=== PATIENT | female | born 1940 | race Caucasian/White ===

== ENCOUNTER → 2016-06-14 | Outpatient (CLI) | payer BC ==
[~2016-06-14] MED LIST: ADAL20KI; APIX1TAB PO; APIX1TAB3 PO; CALC-388 PO; CALCTAB20 PO; CEPH500C2 PO; CLON0.5T3 PO; CYM/30 PO; DULO60CA44 PO; FAMO20TA11 PO; FOLI1TAB7 PO; FRRG PO; HYDR-5688 PO; HYDR2TAB48 PO; LDDP5 EXT; METH2.5T PO; METO25TA3 PO; METO50TA7 PO; MORP15TA19 PO; MRPSR15 PO; OMEP40CA41 PO; OXGN; PRAM0.129 PO; PRAV20TA PO; PRD/1 PO; PRED-301 PO; PRLSR20 PO; QUET1TAB32 PO
--- NOTE | 2016-06-14 17:42 | DIAGNOSTIC IMAGING REPORT ---
MRI LUMBAR SPINE W/O CONTRAST CLINICAL HISTORY: Low back pain HISTORY OF COMPRESSION FRACTURES TECHNIQUE: Sagittal and axial T1, T2 and STIR images were obtained. COMPARISON STUDY: Conventional radiographic study dated 05/01/2016, whole body bone scan dated 05/23/2016 OBSERVATIONS: There is a T11 focal fatty rest/hemangioma. There are old compression fractures of the L1-L5 vertebral bodies. There are no areas of marrow edema to indicate an acute compression fracture. L1-2: There is disc desiccation. There is a central disc protrusion. There is moderate spinal stenosis. There is bilateral foraminal narrowing. L2-3: There is a circumferential disc bulge. There is moderate spinal stenosis. There is facet joint arthropathy. There is bilateral foraminal narrowing L3-4: There is a circumferential disc bulge. There is facet joint arthropathy. There is no significant spinal stenosis. There is mild bilateral foraminal narrowing. L4-5: There is a circumferential disc bulge. There is facet joint arthropathy. There is moderate spinal stenosis. There is bilateral foraminal narrowing. L5-S1: There is a circumferential disc bulge present. There is facet joint arthropathy. There is no significant spinal stenosis. There is bilateral foraminal narrowing. The conus medullaris and cauda equina appear normal. IMPRESSION: 1. Old L1-L5 vertebral body compression fractures 2. Multilevel spondylitic changes with moderate spinal stenosis the L1-2, L2-3, and L4-5 levels. 3. Multilevel severe foraminal stenosis. Electronically signed by: Sam Lopes M.D. 06/14/2016 5:40 PM Dictated Date/Time: 06/14/2016 5:35 PM
== END | disposition home or self-care (01) ==
LOC: C.MRI 16:02
PROVIDERS: ATTEND Family Medicine
DX: M54.17 Radiculopathy, lumbosacral region (principal); M48.06 Spinal stenosis, lumbar region

== ENCOUNTER → 2016-07-04 | Outpatient (CLI) | payer BC | END | disposition home or self-care (01) | LOC: C.MAMM 13:37 | PROVIDERS: ATTEND Internal Medicine Rheumatology | DX: M81.0 Age-related osteoporosis without current pathological fracture (principal) ==

== ENCOUNTER → 2016-07-24 | Outpatient (CLI) | payer BC ==
--- NOTE | 2016-07-24 15:36 | DIAGNOSTIC IMAGING REPORT ---
LEFT HEEL MIN 2 VIEWS CLINICAL HISTORY: Left heel pain COMPARISON: Left foot dated 01/19/2016 DISCUSSION: There is flattening of the talar dome. There are advanced arthritic changes present within the tibiotalar joint. No acute fractures are visualized. No destructive lesions are evident. There are vascular calcifications. IMPRESSION: Advanced degenerative changes within the tibiotalar joint with flattening of the talar dome, unchanged from the preceding study. No acute fractures. No conventional radiographic evidence of osteomyelitis. Electronically signed by: Sam Lopes M.D. 07/24/2016 3:34 PM Dictated Date/Time: 07/24/2016 3:33 PM
== END | disposition home or self-care (01) ==
LOC: C.RAD 15:12
PROVIDERS: ATTEND Emergency Medicine
DX: M79.672 Pain in left foot (principal)

== ENCOUNTER → 2016-08-13 | Outpatient (CLI) | payer BC ==
[~2016-08-13] MED LIST changes: -APIX1TAB PO; -FAMO20TA11 PO; -HYDR-5688 PO
[2016-08-13 14:39] LABS: BASO % 0.2 %; BASO ABS # 0.01 K/uL (0-0.2); COMPLETE YES; EOS % 5.1 %; HEMATOCRIT 38.9 % (37-47); IG% 0.2 %; LYMPH % 27.3 %; LYMPH ABS # 1.35 K/uL (1.2-3.4); MEAN CELL VOLUME 99.2 fL (80-100); MEAN CORPUSCULAR HEMOGLOBIN 32.1 pg (25-34); MEAN CORPUSCULAR HGB CONC 32.4 g/dl (32-36); MEAN PLATELET VOLUME 10.1 fL (7.4-10.4); MONO % 12.8 %; NEUT % 54.4 %; PLATELET COUNT 121 K/uL (130-400); RED BLOOD COUNT 3.92 M/uL (4.2-5.4); WHITE BLOOD COUNT 4.94 K/uL (4.8-10.8)
[2016-08-13 15:08] LABS: ALT/SGPT 24 U/L (12-78); AST/SGOT 19 U/L (15-37); CALCIUM 8.8 mg/dl (8.5-10.1); CREATININE 0.77 mg/dl (0.60-1.20)
[2016-08-13 15:11] LABS: ALKALINE PHOSPHATASE 56 U/L (45-117)
== END | disposition home or self-care (01) ==
LOC: C.LAB1850 13:49
PROVIDERS: ATTEND Internal Medicine Rheumatology
DX: M06.9 Rheumatoid arthritis, unspecified (principal); M81.0 Age-related osteoporosis without current pathological fracture; Z92.29 Personal history of other drug therapy; Z79.52 Long term (current) use of systemic steroids; M54.5 Low back pain; E55.9 Vitamin D deficiency, unspecified; Z79.899 Other long term (current) drug therapy

== ENCOUNTER 2016-09-05 16:12 | Observation (INO) | payer BC ==
[~2016-09-05] VITALS: Ht 157.5 cm; Wt 61.0 kg
[~2016-09-05 16:12] MED LIST changes: -CALC-388 PO; -CEPH500C2 PO; -CYM/30 PO; -HYDR2TAB48 PO; -LDDP5 EXT; -MRPSR15 PO; -OMEP40CA41 PO
[2016-09-05] MEDS ORDERED: HYDROmorphone INJ 2 MG/ML SYR/VIAL IM STA (16:28)
[2016-09-05] MEDS ORDERED: ONDANSETRON 4MG OD TAB PO ONE (16:30)
--- NOTE | 2016-09-05 17:26 | DIAGNOSTIC IMAGING REPORT ---
CT LUMBAR SPINE WITHOUT CT DOSE: 543.03 mGy.cm CLINICAL HISTORY: Severe low back pain. TECHNIQUE: Axial images of the lumbar spine were obtained without IV contrast. Sagittal and coronal reconstructions were viewed. COMPARISON STUDY: Lumbar spine radiograph May 21, 2016 and MRI of the lumbar spine June 14, 2016. FINDINGS: For purposes of numbering on this exam, the L5-S1 disc space is assigned to axial image 226 of 323. When utilizing this numbering scheme, there is a disc space at the S1-S2 level. There is moderate dextroscoliosis of the lumbar spine. There is slight interval listhesis of L4 and L5. There are old compression deformities of L1, L2, L3, L4 and L5 which are similar to MRI of June 14, 2016. No acute fractures identified on this exam. No suspicious osseous lesion is present. The central canal and neural foramen are suboptimally assessed by CT. Multilevel disc bulges are similar to prior MRI and most pronounced at the L4-L5 and L1-L2 levels. The prevertebral soft tissues are unremarkable. IMPRESSION: 1. No acute lumbar spine fracture or subluxation. 2. Old compression fractures of L1, L2, L3, L4 and L5 which are similar to exam of June 14, 2016. 3. Moderate multilevel degenerative disc disease and facet arthrosis. 4. Moderate dextroscoliosis of the lumbar spine. Electronically signed by: Flavio Minaya M.D. 09/05/2016 5:24 PM Dictated Date/Time: 09/05/2016 5:12 PM
[2016-09-05] MEDS ORDERED: CEPH500C2 PO (17:37)
[2016-09-05] MEDS ORDERED: OMEP40CA41 PO (17:37)
[2016-09-05] MEDS ORDERED: CALC-388 PO (17:37)
[2016-09-05] MEDS ORDERED: CYM/30 PO (17:37)
[2016-09-05] MEDS ORDERED: HYDROmorphone INJ 0.5 MG/0.5 ML SYR IV STA (17:43)
[2016-09-05] MEDS ORDERED: DEXAMETHASONE SOD INJ 10 MG/ML VIAL IV ONE (17:45)
[2016-09-05 18:26] LABS: BASO % 0.2 %; BASO ABS # 0.01 K/uL (0-0.2); COMPLETE YES; HEMATOCRIT 39.4 % (37-47); IG% 0.2 %; LYMPH % 11.9 %; LYMPH ABS # 0.72 K/uL (1.2-3.4); MEAN CELL VOLUME 98.5 fL (80-100); MEAN CORPUSCULAR HGB CONC 32.5 g/dl (32-36); MEAN PLATELET VOLUME 9.6 fL (7.4-10.4); MONO % 6.8 %; NEUT % 79.9 %; PLATELET COUNT 129 K/uL (130-400); WHITE BLOOD COUNT 6.05 K/uL (4.8-10.8)
--- NOTE | 2016-09-05 18:44 | EMERGENCY ROOM VISIT NOTE ---
ED Visit Note First contact with patient: 16:19 I have personally evaluated this patient examined her and reviewed the pertinent labs and data. I have discussed the case with Yenny Jarquin, the physician accounts receivable assistant and agree with the plan. Please refer to the PA note. This patient is having severe right leg pain. It is worse in the anterior thigh and worse with movement she has no neurologic deficit she has good distal pulses. Her right foot was operated on yesterday and she has a splint on that on my exam. She also severe RA and is on chronic pain medication. She has received IV pain medications and I do think needs to be admitted for IV pain control. She certainly a fall risk given her RA and the fact that her other leg has been operated on in as a splint on.
[2016-09-05 18:47] LABS: BUN/CREATININE RATIO 13.9 (10-20); CALCIUM 8.9 mg/dl (8.5-10.1); CREATININE 0.74 mg/dl (0.60-1.20); POTASSIUM 4.1 mmol/L (3.5-5.1)
--- NOTE | 2016-09-05 19:40 | History and Physical ---
History & Physical Date & Time of Service: Sep 05, 2016 at 19:39 Chief Complaint: Severe Lt Leg Pain- S/P Surgery-Physician Referr Primary Care Physician: Cuong Chavez M.D. History of Present Illness Source: patient 76 y/o F w/Hx severe RA, multiple orthopedic surgeries, chronic LBP with multiple chronic compression fractures. Pt has had progressive acute on chronic LBP for one week. She had 2 LLE toes amputated due to RA-related deformities 09/04. Positioning during the procedure may have further exacerbated her LBP and she is currently limited in her mobility and not responding to her home pain medications. She denies fevers, rigors, CP, SOB or dysuria. The pt was treated with a corticosteroid injection 2 months prior. Past Medical/Surgical History 1) RA - treating with Humira and low-dose prednisone at present 2) AF 3) Bio AVR 4) Chronic L heal ulcer Surgical 1) B/L TKR 2) R shoulder replacement 3) R elbow surgery 4) Hysterectomy 5) Amputations of 2 LLE toes Social History Smoking Status: Never Smoker Drug Use: none Marital Status: Occupational Status: retired Immunizations History of Influenza Vaccine: Yes Influenza Vaccine Date: Feb 23, 2013 History of Tetanus Vaccine?: Unknown Tetanus Immunization Date: Mar 23, 2009 History of Pneumococcal: Yes Pneumococcal Date: Feb 21, 2011 History of Hepatitis B Vaccine: Unknown Multi-Drug Resistant Organisms History of MDRO: No Allergies Coded Allergies: Aspirin (Verified Allergy, Unknown, Hives, 05/24/15) Celecoxib (Verified Allergy, Unknown, 05/24/15) Sulfa Antibiotics (Verified Allergy, Unknown, Unknown rxn, 05/24/15) Oxycodone (Verified Adverse Reaction, Mild, "GETS NERVOUS", 05/24/15) Home Medications Scheduled Apixaban (Eliquis), 5 MG PO BID Calcium Carbonate-Vitamin D (Calcium + D3 600-200 mg-Unit), 1 TAB PO DAILY Cephalexin Monohydrate (Keflex), 500 MG PO DAILY Clonazepam (Klonopin), 0.5 MG PO HS Duloxetine Hcl (Cymbalta), 30 MG PO DAILY Folic Acid (Folvite), 1 TAB PO DAILY Methotrexate (Methotrexate), 10 MG PO WK Metoprolol Succ (Toprol Xl) (Toprol-Xl), 25 MG PO QPM Metoprolol Succ (Toprol Xl) (Toprol-Xl), 50 MG PO QAM Morphine Cont Rel (Ms Contin), 15 MG PO TID Omeprazole (Prilosec), 40 MG PO DAILY Oxygen (Oxygen), 2 LITERS NA HS Pramipexole Dihydrochloride (Mirapex), 0.125 MG PO HS Pravastatin (Pravachol ), 10 MG PO DAILY Prednisone (Prednisone), 5 MG PO QD@08 Quetiapine Fumarate (Seroquel), 50 MG PO HS Miscellaneous Medications Adalimumab (Humira) Review of Systems Constitutional: No chills, No fever, No sweats Eyes: No eye pain, No worsening of vision ENT: No hearing loss, No nasal symptoms, No unusual epistaxis Respiratory: No cough, No sputum, No wheezing Cardiovascular: No PND, No chest pain, No orthopnea Abdomen: No nausea, No pain, No vomiting Musculoskeletal: + joint pain, + muscle pain, + problem reported (severe LBP) Genitourinary - Female: No dysuria, No hematuria, No urinary frequency, No urinary incontinence, No urinary retention, No urinary urgency Neurologic: No memory loss, No paralysis, No weakness Psychiatric: No anhedonism, No depression symptoms Endocrine: + fatigue Hematologic / Lymphatic: No abnormal bleeding/bruising Integumentary: No rash Allergic / Immunologic: No environmental allergies Physical Exam Vital Signs Date Time Temp Pulse Resp B/P Pulse Ox O2 Delivery O2 Flow Rate FiO2 09/05/16 18:21 69 18 167/87 93 Room Air 09/05/16 16:17 36.4 70 18 165/76 94 Room Air General Appearance: WD/WN, no apparent distress Head: normocephalic, atraumatic Eyes: normal inspection, PERRL, EOMI ENT: normal ENT inspection, hearing grossly normal, TMs normal, pharynx normal Neck: supple, no adenopathy, thyroid normal, no JVD Respiratory/Chest: chest non-tender, lungs clear, normal breath sounds, no respiratory distress, no accessory muscle use Cardiovascular: regular rate, rhythm, no edema, no gallop, no JVD, no murmur, normal peripheral pulses Abdomen/GI: normal bowel sounds, non tender, soft Back: + decreased range of motion, + paravertebral tenderness Extremities/Musculoskelatal: normal inspection, no calf tenderness, normal capillary refill, no pedal edema, normal range of motion, + pertinent finding ( Amputation of 2nd,3rd L toes - no evidence of post-op infection) Neurologic/Psych: cash management specialist II-XII nml as tested, no motor/sensory deficits, alert, normal mood/affect, normal reflexes, oriented x 3 Skin: normal color, warm/dry, no rash Diagnostics Laboratory Results Results Past 24 Hours Test 09/05/16 18:09 Range/Units White Blood Count 6.05 4.8-10.8 K/uL Red Blood Count 4.00 4.2-5.4 M/uL Hemoglobin 12.8 12.0-16.0 g/dL Hematocrit 39.4 37-47 % Mean Corpuscular Volume 98.5 80-100 fL Mean Corpuscular Hemoglobin 32.0 25-34 pg Mean Corpuscular Hemoglobin Concent 32.5 32-36 g/dl Platelet Count 129 130-400 K/uL Mean Platelet Volume 9.6 7.4-10.4 fL Neutrophils (%) (Auto) 79.9 % Lymphocytes (%) (Auto) 11.9 % Monocytes (%) (Auto) 6.8 % Eosinophils (%) (Auto) 1.0 % Basophils (%) (Auto) 0.2 % Neutrophils # (Auto) 4.84 1.4-6.5 K/uL Lymphocytes # (Auto) 0.72 1.2-3.4 K/uL Monocytes # (Auto) 0.41 0.11-0.59 K/uL Eosinophils # (Auto) 0.06 0-0.5 K/uL Basophils # (Auto) 0.01 0-0.2 K/uL RDW Standard Deviation 50.3 36.4-46.3 fL RDW Coefficient of Variation 13.9 11.5-14.5 % Immature Granulocyte % (Auto) 0.2 % Immature Granulocyte # (Auto) 0.01 0.00-0.02 K/uL Sodium Level 142 136-145 mmol/L Potassium Level 4.1 3.5-5.1 mmol/L Chloride Level 102 98-107 mmol/L Carbon Dioxide Level 33 21-32 mmol/L Anion Gap 7.0 3-11 mmol/L Blood Urea Nitrogen 10 7-18 mg/dl Creatinine 0.74 0.60-1.20 mg/dl Est Creatinine Clear Calc Drug Dose 54.7 ml/min Estimated GFR () 90.6 Estimated GFR (Non- 78.1 BUN/Creatinine Ratio 13.9 10-20 Random Glucose 139 70-99 mg/dl Calcium Level 8.9 8.5-10.1 mg/dl Diagnostic Radiology 1. No acute lumbar spine fracture or subluxation. 2. Old compression fractures of L1, L2, L3, L4 and L5 which are similar to exam of June 14, 2016. 3. Moderate multilevel degenerative disc disease and facet arthrosis. 4. Moderate dextroscoliosis of the lumbar spine. Impression Assessment and Plan 76 y/o F w/Hx severe RA, multiple orthopedic surgeries, chronic LBP with multiple chronic compression fractures. Pt has had progressive acute on chronic LBP for one week. She had 2 LLE toes amputated due to RA-related deformities 09/04. Positioning during the procedure may have further exacerbated her LBP and she is currently limited in her mobility and not responding to her home pain medications. She denies fevers, rigors, CP, SOB or dysuria. 1) Back pain - will treat with narcotics. PT/OT requested. Orhthopedics consulted. No acute changes seen on imaging. 2) Cont Prednisone. F/U as outpt for Humira, MTX use post-op. 3) AF - Cont Apixaban 4) Recent toe amputation - not c/o surgical site pain - taking PO Keflex which we will continue. Full code - Apixaban prophylaxis Total time for this admit including review of labs, meds, imaging - recent records - discussion with ER attending and pt 35 min Level of Care Med/Surg Resuscitation Status FULL RESUSCITATION VTE Prophylaxis Given or contraindicated: Other Anticoagulation
[2016-09-05] MEDS ORDERED: HYDROmorphone INJ 1 MG/ML SYR IV PRN (19:45)
--- NOTE | 2016-09-05 19:49 | EMERGENCY ROOM VISIT NOTE ---
History First contact with patient: 16:19 Chief Complaint: LEG PAIN,LEG INJURY Stated Complaint: SEVERE LT LEG PAIN- S/P SURGERY-PHYSICIAN REFERR History of Present Illness The patient is a 76 year old female who presents to the Emergency Room with complaints of right lower back pain that radiates down her leg for the past week described as aching, ranging in severity 8 out of 10. Nothing makes it better or worse. She sees Dr. Ricketts from orthopedics spine. She had steroid injections before. She had an MRI of the back earlier this year. Patient denies fall, chest pain, dyspnea, numbness, tingling, fever, chills, IV drug abuse, loss of bowel or bladder control, saddle anesthesia, abdominal pain. She is tolerating by mouth fluids and food. She tried her morphine at home with no improvement. Patient had foot surgery the other day on her left foot. Patient states she has severe rheumatoid arthritis. Review of Systems See HPI for pertinent positives & negatives. A total of 10 systems reviewed and were otherwise negative. Past Medical/Surgical History Medical Problems: (1) Atrial fibrillation (2) Congestive heart failure (3) Hypertension (4) Osteoporosis, unspecified Social History Smoking Status: Never Smoker Drug Use: none Marital Status: Housing Status: lives with significant other Occupation Status: retired Current/Historical Medications Scheduled Apixaban (Eliquis), 5 MG PO BID Calcium Carbonate-Vitamin D (Calcium + D3 600-200 mg-Unit), 1 TAB PO DAILY Cephalexin Monohydrate (Keflex), 500 MG PO DAILY Clonazepam (Klonopin), 0.5 MG PO HS Duloxetine Hcl (Cymbalta), 30 MG PO DAILY Folic Acid (Folvite), 1 TAB PO DAILY Methotrexate (Methotrexate), 10 MG PO WK Metoprolol Succ (Toprol Xl) (Toprol-Xl), 25 MG PO QPM Metoprolol Succ (Toprol Xl) (Toprol-Xl), 50 MG PO QAM Morphine Cont Rel (Ms Contin), 15 MG PO TID Omeprazole (Prilosec), 40 MG PO DAILY Oxygen (Oxygen), 2 LITERS NA HS Pramipexole Dihydrochloride (Mirapex), 0.125 MG PO HS Pravastatin (Pravachol ), 10 MG PO DAILY Prednisone (Prednisone), 5 MG PO QD@08 Quetiapine Fumarate (Seroquel), 50 MG PO HS Miscellaneous Medications Adalimumab (Humira) Allergies Coded Allergies: Aspirin (Verified Allergy, Unknown, Hives, 05/24/15) Celecoxib (Verified Allergy, Unknown, 05/24/15) Sulfa Antibiotics (Verified Allergy, Unknown, Unknown rxn, 05/24/15) Oxycodone (Verified Adverse Reaction, Mild, "GETS NERVOUS", 05/24/15) Physical Exam Vital Signs Date Time Temp Pulse Resp B/P Pulse Ox O2 Delivery O2 Flow Rate FiO2 09/05/16 19:42 66 18 147/87 93 Room Air 09/05/16 18:21 69 18 167/87 93 Room Air 09/05/16 16:17 36.4 70 18 165/76 94 Room Air Physical Exam VITALS: Vitals are noted on the nurse's note and reviewed by myself. Vital signs stable. GENERAL: Pleasant elderly female, in no acute distress, nondiaphoretic, well- developed well-nourished. SKIN: Capillary reflex less than 2 seconds. HEENT: Normocephalic. PERRLA. EOMI. Nares patent. Mucous membranes moist. Neck is supple without nuchal rigidity. HEART: Regular rate and rhythm LUNGS: Clear to auscultation bilaterally without wheezes, rales or rhonchi. No retractions or accessory muscle use. ABDOMEN: Positive bowel sounds x 4. Normal tympanic percussion. Soft, nontender, without masses or organomegaly. Ferreira sign negative. No guarding or rebound tenderness. MUSCULOSKELETAL: No gross musculoskeletal defects. No pedal edema. No calf tenderness. No thoracic tenderness on exam, minimal L4-L5 tenderness on exam, negative straight leg raise. Patient can walk on toes and heels. +2 patellar reflexes equal present bilaterally NEURO: Patient was alert and oriented to person place and time. Normal sensation to light and sharp touch. No focal neurological deficits. Medical Decision & Procedures Laboratory Results 09/05/16 18:09 Red Blood Count 4.00, Mean Corpuscular Volume 98.5, Mean Corpuscular Hemoglobin 32.0, Mean Corpuscular Hemoglobin Concent 32.5, Mean Platelet Volume 9.6, Neutrophils (%) (Auto) 79.9, Lymphocytes (%) (Auto) 11.9, Monocytes (%) (Auto) 6.8, Eosinophils (%) (Auto) 1.0, Basophils (%) (Auto) 0.2, Neutrophils # (Auto) 4.84, Lymphocytes # (Auto) 0.72, Monocytes # (Auto) 0.41, Eosinophils # (Auto) 0.06, Basophils # (Auto) 0.01 09/05/16 18:09 Test 09/05/16 18:09 White Blood Count 6.05 K/uL (4.8-10.8) Red Blood Count 4.00 M/uL (4.2-5.4) Hemoglobin 12.8 g/dL (12.0-16.0) Hematocrit 39.4 % (37-47) Mean Corpuscular Volume 98.5 fL (80-100) Mean Corpuscular Hemoglobin 32.0 pg (25-34) Mean Corpuscular Hemoglobin Concent 32.5 g/dl (32-36) Platelet Count 129 K/uL (130-400) Mean Platelet Volume 9.6 fL (7.4-10.4) Neutrophils (%) (Auto) 79.9 % Lymphocytes (%) (Auto) 11.9 % Monocytes (%) (Auto) 6.8 % Eosinophils (%) (Auto) 1.0 % Basophils (%) (Auto) 0.2 % Neutrophils # (Auto) 4.84 K/uL (1.4-6.5) Lymphocytes # (Auto) 0.72 K/uL (1.2-3.4) Monocytes # (Auto) 0.41 K/uL (0.11-0.59) Eosinophils # (Auto) 0.06 K/uL (0-0.5) Basophils # (Auto) 0.01 K/uL (0-0.2) RDW Standard Deviation 50.3 fL (36.4-46.3) RDW Coefficient of Variation 13.9 % (11.5-14.5) Immature Granulocyte % (Auto) 0.2 % Immature Granulocyte # (Auto) 0.01 K/uL (0.00-0.02) Anion Gap 7.0 mmol/L (3-11) Est Creatinine Clear Calc Drug Dose 54.7 ml/min Estimated GFR () 90.6 Estimated GFR (Non- 78.1 BUN/Creatinine Ratio 13.9 (10-20) Calcium Level 8.9 mg/dl (8.5-10.1) Medications Administered Medications (Trade) Dose Ordered Sig/Wero Route Start Time Stop Time Status Last Admin Dose Admin Hydromorphone HCl (Dilaudid Inj) 2 mg ONE STAT IM 09/05/16 16:28 09/05/16 16:30 DC 09/05/16 16:53 2 MG Ondansetron HCl (Zofran Odt) 4 mg ONE ONCE PO 09/05/16 16:30 09/05/16 16:31 DC 09/05/16 16:52 4 MG Hydromorphone HCl (Dilaudid Inj) 0.5 mg NOW STAT IV 09/05/16 17:43 09/05/16 17:45 DC 09/05/16 18:16 0.5 MG Dexamethasone Sodium Phosphate (Decadron Inj) 10 mg NOW ONCE IV 09/05/16 17:45 09/05/16 17:46 DC 09/05/16 18:15 10 MG ED Course Prior records/ancillary studies reviewed. Triage Nursing notes reviewed. Additional history obtained from family. The patient's history was concerning for back pain. Differential diagnosis: Etiologies such as musculoskeletal, disc herniation, fracture, aortic disease, metastatic disease, cord compression, discitis, infection, renal colic, gastrointestinal, acute exacerbation of chronic back pain, sciatica, cauda equina, as well as others were entertained. Physical findings: As above. No focal neurologic findings noted. ER treatment provided: Dilaudid, Zofran On reassessment the patient felt better. Diagnostics interpreted by me: Imaging studies: [~ rep ct add3]] CT LUMBAR SPINE WITHOUT CT DOSE: 543.03 mGy.cm CLINICAL HISTORY: Severe low back pain. TECHNIQUE: Axial images of the lumbar spine were obtained without IV contrast. Sagittal and coronal reconstructions were viewed. COMPARISON STUDY: Lumbar spine radiograph May 21, 2016 and MRI of the lumbar spine June 14, 2016. FINDINGS: For purposes of numbering on this exam, the L5-S1 disc space is assigned to axial image 226 of 323. When utilizing this numbering scheme, there is a disc space at the S1-S2 level. There is moderate dextroscoliosis of the lumbar spine. There is slight interval listhesis of L4 and L5. There are old compression deformities of L1, L2, L3, L4 and L5 which are similar to MRI of June 14, 2016. No acute fractures identified on this exam. No suspicious osseous lesion is present. The central canal and neural foramen are suboptimally assessed by CT. Multilevel disc bulges are similar to prior MRI and most pronounced at the L4-L5 and L1-L2 levels. The prevertebral soft tissues are unremarkable. IMPRESSION: 1. No acute lumbar spine fracture or subluxation. 2. Old compression fractures of L1, L2, L3, L4 and L5 which are similar to exam of June 14, 2016. 3. Moderate multilevel degenerative disc disease and facet arthrosis. 4. Moderate dextroscoliosis of the lumbar spine. Electronically signed by: Flavio Minaya M.D. Prior MRI was reviewed Consultation: A consultation was placed with hospitalist, Dr Garcia. the case was discussed and diagnostics were reviewed. Patient will be evaluated by the hospitalist.. This appears to be consistent with lumbar radiculopathy. Patient was still in severe amount of pain despite multiple pain medications. She will be evaluated by medicine for possible admission. Patient was neurovascularly and neurologically intact. She no deficits on exam. She is well-appearing. By the evaluation outlined above emergent etiologies such as fracture, aortic disease, metastatic disease, infection, renal colic, gastrointestinal, cord compression, cauda equina, as well as others were deemed relatively unlikely. The pt informed about the findings as listed above. All questions were answered and pleased with the treatment. Case reviewed with my attending. Medical Decision As above Impression Primary Impression: Lumbar radiculopathy Additional Impression: Intractable low back pain Departure Information Dispostion Being Evaluated By Hospitalist Condition FAIR Referrals Cuong Chavez M.D. (PCP) Patient Instructions My [facility] Additional Instructions Problem Qualifiers
[2016-09-05] MEDS ORDERED: POLYETHYLENE (MIRALAX) 17 GM PACK PO PRN (20:00)
[2016-09-05] MEDS ORDERED: ACETAMINOPHEN 325 MG TAB PO PRN (20:00)
[2016-09-05] MEDS ORDERED: MAGNESIUM HYDROXIDE SUSP 30 ML UDC PO PRN (20:00)
[2016-09-05] MEDS ORDERED: ALUMINUM/MAGNESIUM/SIMETH (MAALOX MAX) 30 ML UDC PO PRN (20:00)
[2016-09-05] MEDS ORDERED: IV FLUIDS COMPLETED PRN (20:45)
[2016-09-05 20:48] VITALS: BP 172/85; PULSE 66; TEMP 37.2; O2SAT 93; Ht 157.5 cm; Wt 61.0 kg
[2016-09-05 21:00] VITALS: BP 95/57
[2016-09-05] MEDS: QUETIAPINE FUMARATE 25 MG TAB PO SCH (21:00)
[2016-09-05] MEDS: METOPROLOL SUCC 25MG EXT REL TAB PO SCH (21:00)
[2016-09-05] MEDS: PRAMIPEXOLE DIHYDROCHLORIDE 0.25MG TAB PO SCH (21:00)
[2016-09-05] MEDS: APIXABAN 2.5 MG TAB PO SCH (21:00)
[2016-09-05] MEDS: CLONAZEPAM 0.5 MG TAB PO SCH ×2 (21:21→22:17)
[2016-09-05] MEDS: MoRPHine SULFATE CR 15 MG TAB (MS CONTIN) PO SCH (22:17)
[2016-09-05 23:10] VITALS: BP 115/66; PULSE 67; TEMP 36.8; O2SAT 94
[2016-09-06] MEDS: MoRPHine SULFATE CR 15 MG TAB (MS CONTIN) PO SCH ×3 (08:48→22:29)
[2016-09-06] MEDS: CEPHALEXIN MONOHYDRATE 500 MG CAP PO SCH (08:48)
[2016-09-06] MEDS: PRAVASTATIN SOD 20 MG TAB PO SCH (08:49)
[2016-09-06] MEDS: DULOXETINE (CYMBALTA) 30 MG CAP PO SCH (08:50)
[2016-09-06] MEDS: CALCIUM 600MG + VIT D 400 IU TAB PO SCH (08:50)
[2016-09-06] MEDS: METOPROLOL SUCC 50MG EXT REL TAB PO SCH (08:51)
[2016-09-06] MEDS: APIXABAN 2.5 MG TAB PO SCH ×2 (08:51→20:56)
[2016-09-06] MEDS: PANTOprazole SOD 40 MG TAB PO SCH (08:51)
[2016-09-06 08:54] VITALS: BP 136/76; PULSE 91; TEMP 36.4; O2SAT 93
[2016-09-06] MEDS ORDERED: HEPARIN SOD 5000 UNIT/0.5 ML CARP SQ SCH (09:00)
--- NOTE | 2016-09-06 12:46 | ORTHOPEDIC CONSULTATION ---
DATE OF CONSULTATION: 09/06/2016 CHIEF COMPLAINT: Intractable low back pain and right lower extremity radiculopathy. HISTORY OF PRESENT ILLNESS: Rosetta is a pleasant 76-year-old female who has been dealing with chronic low back pain and some mild to moderate radicular symptoms. She normally ambulates with a walker. She has a history of debilitating rheumatoid arthritis has had bilateral hip replacements, bilateral knee replacements. She recently went in for an amputation of several of her toes for cross toe deformity, a couple of days ago. Since that time, she has been having severe pain radiating down her right leg. She states her pain level was a 10. She went to the Emergency Room and they gave her some Decadron, which has been making her feel better. She was admitted to the medical service. She has been on IV Dilaudid for the pain. Overall, she says her pain is a 5 or 6 and is feeling much better. She was ambulating today with physical therapy and was going around the nurses' station. She is in the room with her . No new complaints. PAST MEDICAL HISTORY: Significant for severe rheumatoid arthritis, treated with Humira and low dose prednisone; atrial fibrillation, bio AVR and chronic left heel ulcer. PAST SURGICAL HISTORY: Significant for bilateral total knee replacement, right total shoulder arthroplasty, bilateral total hip arthroplasties, right elbow surgery, hysterectomy, and amputation of her toes on both of her left and right lower extremities. ALLERGIES: INCLUDE ASPIRIN, CELEBREX, SULFA ANTIBIOTICS AND OXYCODONE. MEDICATIONS: Include Eliquis 5 mg twice a day, Keflex 500 mg daily, Klonopin 0.5 mg at night, Cymbalta 30 mg daily, Folvite 1 tab daily, methotrexate 10 mg a week, Toprol 25 mg in the evening and 50 mg in the morning, MS Contin 15 mg 3 times a day, Prilosec 40 mg daily, Mirapex 0.125 mg at night, Pravachol 10 mg daily, prednisone 5 mg daily, and Seroquel 50 mg at night and Humira. FAMILY HISTORY: Noncontributory. SOCIAL HISTORY: She lives with her . She ambulates with a walker. She is retired. PHYSICAL EXAMINATION: LUMBAR SPINE: She is sitting in a chair and she seemed rather comfortably. I did not get her up. She said she was not having very much back pain. She was having some pain radiating down her right lower extremity. It was radiating down the posterior aspect of her right thigh down towards her foot. She is otherwise neurovascularly intact. Data: A CT scan reviewed shows advanced degenerative scoliosis and multilevel chronic compression fractures. IMPRESSION: Degenerative scoliosis with multilevel compression fractures and right lower extremity radiculopathy. PLAN: Fortunately, she is starting to feel better. She ambulated well with physical therapy and she said the medications seemed to be working. We talked about a back brace, but she says she has one at home and since she is feeling better, I do not think it is necessary at this time. From an orthopedic standpoint, she is stable for discharge to home. She can follow up with Dr. Ricketts in the office as previously scheduled.
[2016-09-06 14:56] VITALS: BP 144/78; PULSE 69; TEMP 36.6; O2SAT 93
[2016-09-06] MEDS ORDERED: HYDROmorphone HCL 2 MG TAB PO STA (15:50)
[2016-09-06 16:30] VITALS: O2SAT 93
[2016-09-06] MEDS ORDERED: HYDR2TAB48 PO (20:00)
[2016-09-06] MEDS ORDERED: LDDP5 EXT (20:00)
[2016-09-06] MEDS ORDERED: MRPSR15 PO (20:00)
[2016-09-06] MEDS ORDERED: HYDROmorphone HCL 2 MG TAB PO ONE (20:02)
[2016-09-06] MEDS ORDERED: HYDROmorphone HCL 2 MG TAB PO PRN (20:15)
[2016-09-06] MEDS: METOPROLOL SUCC 25MG EXT REL TAB PO SCH (20:56)
[2016-09-06] MEDS: QUETIAPINE FUMARATE 25 MG TAB PO SCH (20:57)
[2016-09-06] MEDS: PRAMIPEXOLE DIHYDROCHLORIDE 0.25MG TAB PO SCH (20:58)
[2016-09-06] MEDS ORDERED: LIDODERM (LIDOCAINE) PATCH 5% TD SCH (21:00)
[2016-09-06] MEDS: CLONAZEPAM 0.5 MG TAB PO SCH (21:05)
[2016-09-06 23:00] VITALS: BP 121/70; PULSE 72; TEMP 36.8; O2SAT 93
[2016-09-07 07:41] VITALS: BP 172/80; PULSE 78; TEMP 36.9; O2SAT 94
[2016-09-07] MEDS: CALCIUM 600MG + VIT D 400 IU TAB PO SCH (07:59)
[2016-09-07] MEDS: PRAVASTATIN SOD 20 MG TAB PO SCH (07:59)
[2016-09-07] MEDS: METOPROLOL SUCC 50MG EXT REL TAB PO SCH (07:59)
[2016-09-07] MEDS: DULOXETINE (CYMBALTA) 30 MG CAP PO SCH (07:59)
[2016-09-07] MEDS: CEPHALEXIN MONOHYDRATE 500 MG CAP PO SCH (08:00)
[2016-09-07] MEDS: PANTOprazole SOD 40 MG TAB PO SCH (08:00)
[2016-09-07] MEDS: APIXABAN 2.5 MG TAB PO SCH (08:00)
[2016-09-07] MEDS: MoRPHine SULFATE CR 15 MG TAB (MS CONTIN) PO SCH ×2 (08:04→13:49)
--- NOTE | 2016-09-07 08:23 | Hospitalist Progress Note ---
Hospitalist Progress Note Date of Service Sep 06, 2016. Subjective Pt evaluation today including: conversation w/ patient patient still has back pain which is uncontrolled will change to oral dilaudid and patient's will obtain script tonight so she can go home in the morning tomorrow if pain is controlled All Other Systems: Reviewed and Negative Medications Last Resulted CBC 09/05/16 18:09 Red Blood Count 4.00, Mean Corpuscular Volume 98.5, Mean Corpuscular Hemoglobin 32.0, Mean Corpuscular Hemoglobin Concent 32.5, Mean Platelet Volume 9.6, Neutrophils (%) (Auto) 79.9, Lymphocytes (%) (Auto) 11.9, Monocytes (%) (Auto) 6.8, Eosinophils (%) (Auto) 1.0, Basophils (%) (Auto) 0.2, Neutrophils # (Auto) 4.84, Lymphocytes # (Auto) 0.72, Monocytes # (Auto) 0.41, Eosinophils # (Auto) 0.06, Basophils # (Auto) 0.01 Last Resulted BMP 09/05/16 18:09 Objective Vital Signs Date Time Temp Pulse Resp B/P Pulse Ox O2 Delivery O2 Flow Rate FiO2 09/07/16 07:41 36.9 78 18 172/80 94 Room Air 09/07/16 00:35 Room Air 09/06/16 23:00 36.8 72 16 121/70 93 Room Air 09/06/16 16:30 93 Room Air 09/06/16 14:56 36.6 69 16 144/78 93 Room Air 09/06/16 08:54 36.4 91 18 136/76 93 Room Air Physical Exam General Appearance: WD/WN, + mild distress Eyes: normal inspection ENT: hearing grossly normal Neck: trachea midline Respiratory/Chest: lungs clear Cardiovascular: regular rate, rhythm Abdomen: normal bowel sounds Extremities: normal range of motion Neurologic/Psychiatric: alert Assessment and Plan (1) Intractable low back pain Assessment & Plan: Discussed with Dr. Amador. Patient is in a difficult chronic situation and already has a back brace at home. Will change to oral dilaudid with long acting morphine and add lidocaine patch. Senna and miralax recommended to keep bowels moving. (2) Osteoporosis, unspecified (3) Compression fracture
[2016-09-07] MEDS ORDERED: LIDOCAINE HCL 5% OINT 30 GM TUBE EXT SCH (09:00)
--- NOTE | 2016-09-07 09:35 | DISCHARGE SUMMARY ---
DATE OF DISCHARGE: 09/07/2016 Please see dictated H and P by Dr. Garcia for full details of the presentation. The patient is a 76-year-old with history of chronic lower back pain, who came in with intractable lower back pain. She had recently had amputation of several of her toes for cross toe deformity. Since that time, she has been having severe pain radiating down to her right leg. Her pain level is a 10. Decadron made her feel better with IV Dilaudid. She was able to ambulate with physical therapy. She was seen by orthopedic surgery, Dr. Amador. He offered her a back brace which she states that she already had one at home. CAT scan showed advanced degenerative sclerosis and multiple chronic compression fractures. She responded well to adjustment of her pain medications. She is on long-acting morphine 3 times a day 15 mg and Dilaudid 2 mg as needed q. 4 as needed for pain with the addition of a Lidocaine patch. She was seen on the date of discharge, found to be stable. Time spent reviewing the chart and discussion with the patient on the date of discharge 31 minutes. DISCHARGE DIAGNOSES: 1. Degenerative scoliosis with multiple compression fractures. 2. Right lower extremity radiculopathy. 3. Rheumatoid arthritis, advanced. 4. History of atrial fibrillation. 5. Biological aortic valve replacement.
[2016-09-07 10:44] VITALS: BP 115/70; PULSE 67
[2016-09-07 12:12] VITALS: BP 115/70; PULSE 67; TEMP 36.9; O2SAT 94
--- NOTE | 2016-09-07 14:07 | Discharge Instructions ---
Discharge Instructions Date of Service Sep 07, 2016. Admission Reason for Admission: Intractable Low Back Pain Discharge Discharge Diagnosis / Problem: Compression fractures Discharge Goals Goal(s): Improve function Activity Recommendations Activity Limitations: per Instructions/Follow-up section Lifting Limitations: none . Instructions / Follow-Up Instructions / Follow-Up Primary care Physician in 1 week Current Hospital Diet Patient's current hospital diet: AHA Diet (Heart Healthy) Discharge Diet Recommended Diet: AHA Diet (Heart Healthy) Pending Studies Studies pending at discharge: no Medical Emergencies . Who to Call and When: Medical Emergencies: If at any time you feel your situation is an emergency, please call 911 immediately. . Non-Emergent Contact Non-Emergency issues call your: Primary Care Provider . Past History Medical & Surgical History: (1) Lumbar radiculopathy (2) Intractable low back pain (3) Compression fracture . "Provider Documentation" section prepared by Jaguar Chandler. VTE Core Measure Inpt VTE Proph given/why not?: Other Anticoagulation
== END 2016-09-07 14:36 | disposition home health service (06) ==
LOC: ENRESERVTM → ENRESERVDT → C.EDB 16:14 → C.MSW 19:55
PROVIDERS: ADMIT Internal Medicine; ATTEND Internal Medicine
DX: M54.16 Radiculopathy, lumbar region (principal); M41.9 Scoliosis, unspecified; M06.9 Rheumatoid arthritis, unspecified; I48.91 Unspecified atrial fibrillation; M48.56XG Collapsed vertebra, not elsewhere classified, lumbar region, subsequent encounter for fracture with delayed healing; L97.429 Non-pressure chronic ulcer of left heel and midfoot with unspecified severity; I50.9 Heart failure, unspecified; I11.0 Hypertensive heart disease with heart failure; M81.0 Age-related osteoporosis without current pathological fracture; Z79.899 Other long term (current) drug therapy; Z89.422 Acquired absence of other left toe(s); Z96.643 Presence of artificial hip joint, bilateral; Z96.653 Presence of artificial knee joint, bilateral; Z79.52 Long term (current) use of systemic steroids

== ENCOUNTER 2016-09-18 16:56 | Inpatient (IN) | payer BC, OTHER ==
[~2016-09-18] VITALS: Ht 157.5 cm; Wt 63.8 kg
[~2016-09-18 16:56] MED LIST changes: +CALC-388 PO; -CALCTAB20 PO; +CEPH500C2 PO; +CYM/30 PO; -DULO60CA44 PO; -FRRG PO; +HYDR2TAB48 PO; +LDDP5 EXT; -MORP15TA19 PO; +MRPSR15 PO; +OMEP40CA41 PO; -PRD/1 PO; -PRLSR20 PO
--- NOTE | 2016-09-18 17:31 | EMERGENCY ROOM VISIT NOTE ---
History Report prepared by Ronda: Babak Hung Under the Supervision of: Dr. Mike Zimmerman M.D. 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 She rates her pain an 8/10 in intensity. This fall occurred while trying to get into her vehicle today. She states that she had just taken her afternoon medications which make her feel drowsy and weak. The patient was recently discharged from the hospital 1 week ago for persistent back pain and right leg pain. The patient is currently prescribed 15 mg morphine 3x day, and 2 mg Dilaudid every 4 hours. She states these medications do not relieve her pain. The patient denies headaches, confusion, loss of consciousness, neck pain, or any additional associated symptoms. She also denies the need for rehabilitation. Patient has a history of bilateral hip replacement 10 years ago. She takes Eliquis regularly as prescribed. 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 A total of 10 systems reviewed and were otherwise negative. Past Medical & Surgical Medical Problems: (1) Atrial fibrillation (2) Congestive heart failure (3) Hip fracture due to osteoporosis (4) Hypertension (5) Osteoporosis, unspecified Family History Unknown Social History Smoking Status: Unknown if Ever Smoked Drug Use: none Marital Status: Housing Status: lives with significant other Occupation Status: retired Current/Historical Medications Scheduled Apixaban (Eliquis), 5 MG PO BID Calcium Carbonate-Vitamin D (Calcium + D3 600-200 mg-Unit), 1 TAB PO DAILY Clonazepam (Klonopin), 0.5 MG PO HS Duloxetine Hcl (Cymbalta), 30 MG PO DAILY Folic Acid (Folvite), 1 TAB PO DAILY Methotrexate (Methotrexate), 10 MG PO WK Metoprolol Succ (Toprol Xl) (Toprol-Xl), 25 MG PO QPM Metoprolol Succ (Toprol Xl) (Toprol-Xl), 50 MG PO QAM Morphine Sulfate (Morphine Sulfate ER), 15 MG PO TID Omeprazole (Prilosec), 40 MG PO DAILY Oxygen (Oxygen), 2 LITERS NA HS Pramipexole Dihydrochloride (Mirapex), 0.125 MG PO HS Pravastatin (Pravachol ), 10 MG PO HS Prednisone (Prednisone), 5 MG PO BID Quetiapine Fumarate (Seroquel), 50 MG PO HS Scheduled PRN Hydromorphone Hcl (Dilaudid), 1 TAB PO QID PRN for Pain Lidocaine (Lidocaine), 5 % EXT DAILY PRN for Pain Miscellaneous Medications Adalimumab (Humira) Allergies Coded Allergies: Aspirin (Verified Allergy, Unknown, Hives, 05/24/15) Celecoxib (Verified Allergy, Unknown, 05/24/15) Sulfa Antibiotics (Verified Allergy, Unknown, Unknown rxn, 05/24/15) Oxycodone (Verified Adverse Reaction, Mild, "GETS NERVOUS", 05/24/15) Physical Exam Vital Signs Date Time Temp Pulse Resp B/P Pulse Ox O2 Delivery O2 Flow Rate FiO2 09/18/16 18:29 70 16 121/65 93 Room Air 09/18/16 17:01 36.7 78 16 157/96 88 Room Air Physical Exam GENERAL: Patient is an elderly, frail female who is anxious appearing. HEENT: Right eye- chronic exotropia noted. No acute trauma, normocephalic atraumatic, mucous membranes moist, no nasal congestion, no scleral icterus. NECK: No stridor, no adenopathy, no meningismus, trachea is midline. LUNGS: No dyspnea. Clear to auscultation and equal bilaterally. No wheeze, no rhonchi. HEART: Regular rate and rhythm. No murmurs, rubs, gallops appreciated. ABDOMEN: Soft, nontender, bowel sounds positive, no masses appreciated, no peritonitis. BACK: No midline tenderness, no CVA tenderness EXTREMITIES: Severe arthritis of the hands bilaterally. Pain with palpation of right upper thigh. NEUROLOGIC: GSC: 15. Alert and oriented, no acute motor or sensory deficits, no focal weakness, cranial nerves grossly intact. SKIN: Multiple skin tears of right elbow. No rash, no jaundice, no diaphoresis. Medical Decision & Procedures ER Provider Diagnostic Interpretation: Radiology results and stated below per my review and radiologist interpretation: PELVIS 1 OR 2 VIEW ROUTINE, RIGHT FEMUR 2 VIEWS ROUTINE CLINICAL HISTORY: Fall, right upper leg pain COMPARISON STUDY: Pelvis 03/03/2013. FINDINGS: Bilateral total hip arthroplasties. Nondisplaced fracture within the right greater trochanter. This involves both the base of the greater trochanter as well as the tip of the greater trochanter. Old, healed right pubic ring fractures. The bones are osteopenic. No dislocation. The sacrum appears intact. Vascular calcifications are noted. There is a right total knee arthroplasty. The hardware appears intact. IMPRESSION: 1. Nondisplaced fracture within the right greater trochanter. 2. Bilateral total hip arthroplasties and a right knee arthroplasty. 3. Old, healed right pubic ring fractures. 4. No dislocation. Electronically signed by: Cam Quezada M.D. 09/18/2016 6:05 PM Dictated Date/Time: 09/18/2016 6:[address] CT DOSE: 537.48 mGy.cm HISTORY: fall, on blood thinners, GCS 15 TECHNIQUE: Multiaxial CT images of the head were performed without the use of intravenous contrast. Automated exposure control was utilized for this study. Comparison: Head CT 01/02/2016. Findings: The paranasal sinuses and mastoid air cells are clear. The calvarium and skull base are intact. There is no mass, hematoma, midline shift, acute infarct. White matter hypodensity is nonspecific but suggestive of microvascular ischemic change. The ventricles and sulci demonstrate mild age-related involutional changes. 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 Impression: No significant change compared to the prior study. No acute intracranial abnormality. Electronically signed by: Cam Quezada M.D. 09/18/2016 6:25 PM Dictated Date/Time: 09/18/2016 6:20 PM PELVIS 1 OR 2 VIEW ROUTINE, RIGHT FEMUR 2 VIEWS ROUTINE CLINICAL HISTORY: Fall, right upper leg pain COMPARISON STUDY: Pelvis 03/03/2013. FINDINGS: Bilateral total hip arthroplasties. Nondisplaced fracture within the right greater trochanter. This involves both the base of the greater trochanter as well as the tip of the greater trochanter. Old, healed right pubic ring fractures. The bones are osteopenic. No dislocation. The sacrum appears intact. Vascular calcifications are noted. There is a right total knee arthroplasty. The hardware appears intact. IMPRESSION: 1. Nondisplaced fracture within the right greater trochanter. 2. Bilateral total hip arthroplasties and a right knee arthroplasty. 3. Old, healed right pubic ring fractures. 4. No dislocation. Electronically signed by: Cam Quezada M.D. 09/18/2016 6:05 PM Dictated Date/Time: 09/18/2016 6:01 PM CHEST ONE VIEW PORTABLE HISTORY: fall, mild hypoxia COMPARISON: Chest 12/27/2013. FINDINGS: Right shoulder arthroplasty. Severe left shoulder osteoarthritis. No pleural effusions. No pneumothorax. Mild interstitial thickening which is likely chronic. No focal lung consolidations to suggest pneumonia. The heart is borderline enlarged. There are postoperative changes and an aortic valve prosthesis. IMPRESSION: Stable chronic interstitial thickening. Otherwise, no acute process within the chest. Electronically signed by: Cam Quezada M.D. 09/18/2016 6:06 PM Dictated Date/Time: 09/18/2016 6:05 PM Laboratory Results 09/18/16 18:50 09/18/16 18:50 Test 09/18/16 18:50 Red Blood Count 4.01 M/uL (4.2-5.4) Mean Corpuscular Volume 99.3 fL (80-100) Mean Corpuscular Hemoglobin 31.4 pg (25-34) Mean Corpuscular Hemoglobin Concent 31.7 g/dl (32-36) RDW Standard Deviation 49.4 fL (36.4-46.3) RDW Coefficient of Variation 13.7 % (11.5-14.5) Mean Platelet Volume 9.5 fL (7.4-10.4) Anion Gap 6.0 mmol/L (3-11) Est Creatinine Clear Calc Drug Dose 47.0 ml/min Estimated GFR () 73.5 Estimated GFR (Non- 63.4 BUN/Creatinine Ratio 22.6 (10-20) Calcium Level 8.7 mg/dl (8.5-10.1) Laboratory results as reviewed by me. Medications Administered Medications (Trade) Dose Ordered Sig/Wero Route Start Time Stop Time Status Last Admin Dose Admin Lidocaine (Lidoderm Patch 5%) 1 patch DAILY PRN TD 09/18/16 19:45 10/18/16 19:44 09/18/16 21:36 1 PATCH Hydromorphone HCl (Dilaudid Inj) 1.5 mg Q3H PRN IV 09/18/16 19:45 10/02/16 19:44 09/18/16 23:58 1.5 MG ED Course 171: The patient was evaluated in room C6. A complete history and physical exam was performed. 1728: I discussed the patient's case with case management. 1820: Upon reevaluation, the patient is feeling much better while sitting. We are awaiting orthopedic consult. 182: Discussed the patient's case with Dr. Saldaña (Orthopedics). He recommends the patient use walker with less than 50% weight bearing of right leg. He agrees with rehabilitation placement if possible. 1831: Patient is currently 93% on RA. 1841: The patient is agreeable with treatment plan of coming in to have rehab placement. She notes that she has a walker at home but due to toe amputations and severe arthritis, she can not use it properly at this time. 1920: I discussed the patient's case [place] Dr. Garcia [place] [place] He will evaluate the patient for further management and care. Medical Decision Differential: Intracranial Injury, Cervical Injury, Intrathoracic/Abdominal Injury, Neurologic Injuries, Fractures/Dislocations, Lacerations, Tetanus Status , amongst other pathologies entertained. 76 yr old female on eliquis with severe arthritis and many previous joint replacements on high dose narcotics tripped and feel today landing on right leg. Without movement she actually calmed down significantly and not needing meds, though likely because she took her dilaudid just prior to fall. Unable to bear even partial weight, nor even get around due to weakness, toe amputations, severe arthritis, etc. Discussed with ortho who note: Walker with <=50% weight right leg. Patient currently unable to do this. Will need placement to rehab which unable to do tonight. Patient agreeable to placement though. Consults Time Called: 1809 Consulting Physician: Dr. Saldaña (Orthopedics) Returned Call: 1824 Discussed the patient's case with Dr. Saldaña (Orthopedics). He recommends the patient use walker with less than 50% weight bearing of right leg. He agrees with rehabilitation placement if possible. Additional Consults: Time Called: 1905 Consulted Physician: Dr. Garcia ([facility] [place] Returned Call: 1919 Additional Comments: I discussed the patient's case with Dr. Garcia ([facility] [place] He will evaluate the patient for further management and care. Impression Primary Impression: Fracture of greater trochanter of right femur Additional Impression: Skin tear of right elbow without complication Scribe Attestation The scribe's documentation has been prepared under my direction and personally reviewed by me in its entirety. I confirm that the note above accurately reflects all work, treatment, procedures, and medical decision making performed by me. Departure Information Dispostion Being Evaluated By Hospitalist Referrals Cuong Chavez M.D. (PCP) Patient Instructions My [facility] Problem Qualifiers Primary Impression: Fracture of greater trochanter of right femur Encounter type: initial encounter Fracture type: closed Qualified Codes: S72.111A - Displaced fracture of greater trochanter of right femur, initial encounter for closed fracture Additional Impression: Skin tear of right elbow without complication Encounter type: initial encounter Qualified Codes: S51.011A - Laceration without foreign body of right elbow, initial encounter
--- NOTE | 2016-09-18 18:07 | DIAGNOSTIC IMAGING REPORT ---
PELVIS 1 OR 2 VIEW ROUTINE, RIGHT FEMUR 2 VIEWS ROUTINE CLINICAL HISTORY: Fall, right upper leg pain COMPARISON STUDY: Pelvis 03/03/2013. FINDINGS: Bilateral total hip arthroplasties. Nondisplaced fracture within the right greater trochanter. This involves both the base of the greater trochanter as well as the tip of the greater trochanter. Old, healed right pubic ring fractures. The bones are osteopenic. No dislocation. The sacrum appears intact. Vascular calcifications are noted. There is a right total knee arthroplasty. The hardware appears intact. IMPRESSION: 1. Nondisplaced fracture within the right greater trochanter. 2. Bilateral total hip arthroplasties and a right knee arthroplasty. 3. Old, healed right pubic ring fractures. 4. No dislocation. Electronically signed by: Cam Quezada M.D. 09/18/2016 6:05 PM Dictated Date/Time: 09/18/2016 6:01 PM
--- NOTE | 2016-09-18 18:08 | DIAGNOSTIC IMAGING REPORT ---
CHEST ONE VIEW PORTABLE HISTORY: fall, mild hypoxia COMPARISON: Chest 12/27/2013. FINDINGS: Right shoulder arthroplasty. Severe left shoulder osteoarthritis. No pleural effusions. No pneumothorax. Mild interstitial thickening which is likely chronic. No focal lung consolidations to suggest pneumonia. The heart is borderline enlarged. There are postoperative changes and an aortic valve prosthesis. IMPRESSION: Stable chronic interstitial thickening. Otherwise, no acute process within the chest. Electronically signed by: Cam Quezada M.D. 09/18/2016 6:06 PM Dictated Date/Time: 09/18/2016 6:05 PM
--- NOTE | 2016-09-18 18:27 | DIAGNOSTIC IMAGING REPORT ---
HEAD CT NONCONTRAST CT DOSE: 537.48 mGy.cm HISTORY: fall, on blood thinners, GCS 15 TECHNIQUE: Multiaxial CT images of the head were performed without the use of intravenous contrast. Automated exposure control was utilized for this study. Comparison: Head CT 01/02/2016. Findings: The paranasal sinuses and mastoid air cells are clear. The calvarium and skull base are intact. There is no mass, hematoma, midline shift, acute infarct. White matter hypodensity is nonspecific but suggestive of microvascular ischemic change. The ventricles and sulci demonstrate mild age-related involutional changes. 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 Impression: No significant change compared to the prior study. No acute intracranial abnormality. Electronically signed by: Cam Quezada M.D. 09/18/2016 6:25 PM Dictated Date/Time: 09/18/2016 6:20 PM
[2016-09-18 18:58] LABS: HEMATOCRIT 39.8 % (37-47); MEAN CELL VOLUME 99.3 fL (80-100); MEAN CORPUSCULAR HEMOGLOBIN 31.4 pg (25-34); MEAN CORPUSCULAR HGB CONC 31.7 g/dl (32-36); MEAN PLATELET VOLUME 9.5 fL (7.4-10.4); PLATELET COUNT 120 K/uL (130-400); RED BLOOD COUNT 4.01 M/uL (4.2-5.4); WHITE BLOOD COUNT 5.87 K/uL (4.8-10.8)
[2016-09-18 19:20] LABS: BUN/CREATININE RATIO 22.6 (10-20); CALCIUM 8.7 mg/dl (8.5-10.1); CREATININE 0.88 mg/dl (0.60-1.20); POTASSIUM 3.9 mmol/L (3.5-5.1)
[2016-09-18] MEDS ORDERED: ALUMINUM/MAGNESIUM/SIMETH (MAALOX MAX) 30 ML UDC PO PRN (20:00)
[2016-09-18] MEDS ORDERED: MAGNESIUM HYDROXIDE SUSP 30 ML UDC PO PRN (20:00)
[2016-09-18] MEDS ORDERED: ONDANSETRON INJ 2 MG/ML 2 ML VIAL IV PRN (20:00)
[2016-09-18] MEDS ORDERED: POLYETHYLENE (MIRALAX) 17 GM PACK PO PRN (20:00)
[2016-09-18] MEDS: HYDROmorphone INJ 2 MG/ML SYR/VIAL IV PRN ×2 (20:11→23:58)
[2016-09-18 20:30] VITALS: BP_SYST 116; BP_SYST 136; BP_DIAS 50; BP_DIAS 59; PULSE 77; TEMP 36.9; O2SAT 96; Ht 157.5 cm; Wt 63.8 kg
--- NOTE | 2016-09-18 20:37 | History and Physical ---
History & Physical Date & Time of Service: Sep 18, 2016 at 20:09 Chief Complaint: Rt Elbow Lac, Rt Leg Pain- Physician Referred Primary Care Physician: Cuong Chavez M.D. History of Present Illness Source: patient 76 y/o F w/Hx severe RA, multiple orthopedic surgeries, AF, osteoporosis, chronic LBP with multiple chronic compression fractures. She had 2 LLE toes amputated due to RA-related deformities 09/04 which has adversely affected her balance. The pt went out to dinner with her and suffered a mechanical fall on her R side. She had considerable pain and was unable to mobilize. On arrival to the ER a R trochanteric fracture was confirmed. She denies CP, SOB, lightheadedness or palpitations preceding fall. The orthopedic service was contacted and as the fracture is nondisplaced and involves a prosthesis, PT only is recommended. The pt states that she has held her Humira and MTX over the past few weeks due to her amputations. She states that her pain has been worse without the Humira. Past Medical/Surgical History Past Medical/Surgical History 1) Severe RA - treating with Humira, low-dose prednisone, MTX at present 2) Chronic AF 3) Bio AVR 2010 - [facility] 4) Chronic L heal ulcer 5) Osteoporosis 6) Grade 1 diastolic dysfunction - preserved EF 7) LBBB 8) CVA 2010 prior to valve replacement 9) Chronic lower back paige - narcotic-dependent - multiple compression fractures Surgical 1) B/L TKR Family History Unknown CAD Social History Lives with her and largely maintains her independence Smoking Status: Never Smoker Alcohol Use: none Drug Use: none Marital Status: Occupational Status: retired Immunizations History of Influenza Vaccine: Yes Influenza Vaccine Date: Feb 23, 2013 History of Tetanus Vaccine?: Unknown Tetanus Immunization Date: Mar 23, 2009 History of Pneumococcal: Yes Pneumococcal Date: Feb 21, 2011 History of Hepatitis B Vaccine: Unknown Multi-Drug Resistant Organisms History of MDRO: No Allergies Coded Allergies: Aspirin (Verified Allergy, Unknown, Hives, 05/24/15) Celecoxib (Verified Allergy, Unknown, 05/24/15) Sulfa Antibiotics (Verified Allergy, Unknown, Unknown rxn, 05/24/15) Oxycodone (Verified Adverse Reaction, Mild, "GETS NERVOUS", 05/24/15) Home Medications Scheduled Apixaban (Eliquis), 5 MG PO BID Calcium Carbonate-Vitamin D (Calcium + D3 600-200 mg-Unit), 1 TAB PO DAILY Clonazepam (Klonopin), 0.5 MG PO HS Duloxetine Hcl (Cymbalta), 30 MG PO DAILY Folic Acid (Folvite), 1 TAB PO DAILY Methotrexate (Methotrexate), 10 MG PO WK Metoprolol Succ (Toprol Xl) (Toprol-Xl), 25 MG PO QPM Metoprolol Succ (Toprol Xl) (Toprol-Xl), 50 MG PO QAM Morphine Sulfate (Morphine Sulfate ER), 15 MG PO TID Omeprazole (Prilosec), 40 MG PO DAILY Oxygen (Oxygen), 2 LITERS NA HS Pramipexole Dihydrochloride (Mirapex), 0.125 MG PO HS Pravastatin (Pravachol ), 10 MG PO HS Prednisone (Prednisone), 5 MG PO BID Quetiapine Fumarate (Seroquel), 50 MG PO HS Scheduled PRN Hydromorphone Hcl (Dilaudid), 1 TAB PO QID PRN for Pain Lidocaine (Lidocaine), 5 % EXT DAILY PRN for Pain Miscellaneous Medications Adalimumab (Humira) Review of Systems Constitutional: No chills, No fever, No sweats Eyes: No eye pain, No worsening of vision ENT: No hearing loss, No nasal symptoms, No unusual epistaxis Respiratory: No cough, No sputum, No wheezing Cardiovascular: No PND, No chest pain, No orthopnea Abdomen: No nausea, No pain, No vomiting Musculoskeletal: + joint pain, + muscle pain, + problem reported (Severe R hip and lower back pain) Genitourinary - Female: No dysuria, No hematuria, No urinary frequency, No urinary incontinence, No urinary retention, No urinary urgency Neurologic: + balance problems, + weakness, No memory loss, No paralysis Psychiatric: + depression symptoms Endocrine: No fatigue Hematologic / Lymphatic: No abnormal bleeding/bruising Integumentary: No rash Allergic / Immunologic: No environmental allergies Physical Exam Vital Signs Date Time Temp Pulse Resp B/P Pulse Ox O2 Delivery O2 Flow Rate FiO2 09/18/16 18:29 70 16 121/65 93 Room Air 09/18/16 17:01 36.7 78 16 157/96 88 Room Air General Appearance: WD/WN, + pertinent finding (Very thin emotinally distressed elderly F ) Head: normocephalic, atraumatic Eyes: normal inspection, PERRL, EOMI ENT: normal ENT inspection, pharynx normal Neck: supple, no JVD Respiratory/Chest: chest non-tender, lungs clear, normal breath sounds, no respiratory distress, no accessory muscle use Cardiovascular: + systolic murmur, + irregularly irregular Abdomen/GI: normal bowel sounds, non tender, soft Back: no CVA tenderness, + decreased range of motion Extremities/Musculoskelatal: + pertinent finding (tenderness over R hip - no shortening/rotation noted - L toe amputations apper to be healing well without sign of infection - severe rheumatoid deformaties of upper extremeties) Neurologic/Psych: 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 as tested, no motor/sensory deficits, alert, normal mood/affect, normal reflexes, oriented x 3 Skin: normal color, warm/dry, no rash, + pertinent finding (Lacteration of R elbow - LLE toes show bruising and stitches) Diagnostics Laboratory Results Results Past 24 Hours Test 09/18/16 18:50 Range/Units White Blood Count 5.87 4.8-10.8 K/uL Red Blood Count 4.01 4.2-5.4 M/uL Hemoglobin 12.6 12.0-16.0 g/dL Hematocrit 39.8 37-47 % Mean Corpuscular Volume 99.3 80-100 fL Mean Corpuscular Hemoglobin 31.4 25-34 pg Mean Corpuscular Hemoglobin Concent 31.7 32-36 g/dl RDW Standard Deviation 49.4 36.4-46.3 fL RDW Coefficient of Variation 13.7 11.5-14.5 % Platelet Count 120 130-400 K/uL Mean Platelet Volume 9.5 7.4-10.4 fL Sodium Level 139 136-145 mmol/L Potassium Level 3.9 3.5-5.1 mmol/L Chloride Level 103 98-107 mmol/L Carbon Dioxide Level 30 21-32 mmol/L Anion Gap 6.0 3-11 mmol/L Blood Urea Nitrogen 20 7-18 mg/dl Creatinine 0.88 0.60-1.20 mg/dl Est Creatinine Clear Calc Drug Dose 47.0 ml/min Estimated GFR () 73.5 Estimated GFR (Non- 63.4 BUN/Creatinine Ratio 22.6 10-20 Random Glucose 144 70-99 mg/dl Calcium Level 8.7 8.5-10.1 mg/dl Diagnostic Radiology XR femur 1. Nondisplaced fracture within the right greater trochanter. 2. Bilateral total hip arthroplasties and a right knee arthroplasty. 3. Old, healed right pubic ring fractures. 4. No dislocation. Impression Assessment and Plan 76 y/o F w/Hx severe RA, multiple orthopedic surgeries, AF, osteoporosis, chronic LBP with multiple chronic compression fractures. She had 2 LLE toes amputated due to RA-related deformities 09/04 which has adversely affected her balance. The pt went out to dinner with her and suffered a mechanical fall on her R side. She had considerable pain and was unable to mobilize. On arrival to the ER a R trochanteric fracture was confirmed. She denies CP, SOB, lightheadedness or palpitations preceding fall. The orthopedic service was contacted and as the fracture is nondisplaced and involves a prosthesis, PT only is recommended. 1) Hip fracture - prosthetic R hip - orthopedics recommending PT only - walker and 50% weight bearing recommended. Will provide adequate pain control, bed rest overnight and PT/OT requested for AM. She will need placement for rehab. 2) Severe RA - should consult [facility] regarding restarting Humira. We will cont low-dose prednisone. 3) AF - rate controlled - cont B aj , Apixaban Ful code - Apixaban prophylaxis Total time for this admit including review of labs, meds, imaging, records - discussion with pt and ER MD - 38 min Level of Care Med/Surg Resuscitation Status FULL RESUSCITATION VTE Prophylaxis VTE Risk Assessment Done? Y/N: Yes Risk Level: Moderate Given or contraindicated: Other Anticoagulation
[2016-09-18] MEDS ORDERED: APIXABAN 2.5 MG TAB PO SCH (21:00)
[2016-09-18] MEDS: QUETIAPINE FUMARATE 25 MG TAB PO SCH (21:32)
[2016-09-18] MEDS: APIXABAN 2.5 MG TAB PO SCH (21:32)
[2016-09-18] MEDS: METOPROLOL SUCC 25MG EXT REL TAB PO SCH (21:33)
[2016-09-18] MEDS: PRAVASTATIN SOD 10 MG TAB PO SCH (21:34)
[2016-09-18] MEDS: PRAMIPEXOLE DIHYDROCHLORIDE 0.5 MG TAB PO SCH (21:35)
[2016-09-18] MEDS: LIDODERM (LIDOCAINE) PATCH 5% TD PRN (21:36)
[2016-09-18] MEDS: CLONAZEPAM 0.5 MG TAB PO SCH (21:42)
[2016-09-18] MEDS: MoRPHine SULFATE CR 15 MG TAB (MS CONTIN) PO SCH (21:42)
[2016-09-18 23:31] VITALS: BP 133/77; PULSE 83; TEMP 37.2; O2SAT 93
[2016-09-19] MEDS: ACETAMINOPHEN 325 MG TAB PO PRN ×2 (02:20→07:48)
[2016-09-19] MEDS: HYDROmorphone INJ 2 MG/ML SYR/VIAL IV PRN ×3 (06:16→18:07)
[2016-09-19 06:52] VITALS: BP 114/69; PULSE 70; TEMP 36.8; O2SAT 93
[2016-09-19 07:30] VITALS: O2SAT 93
[2016-09-19] MEDS: PANTOprazole SOD 40 MG TAB PO SCH (08:59)
[2016-09-19] MEDS: APIXABAN 2.5 MG TAB PO SCH ×2 (08:59→20:52)
[2016-09-19] MEDS: CALCIUM 600MG + VIT D 400 IU TAB PO SCH (08:59)
[2016-09-19] MEDS: DULOXETINE (CYMBALTA) 30 MG CAP PO SCH (09:00)
[2016-09-19] MEDS: METOPROLOL SUCC 50MG EXT REL TAB PO SCH (09:00)
[2016-09-19] MEDS: MoRPHine SULFATE CR 15 MG TAB (MS CONTIN) PO SCH ×3 (09:07→20:52)
--- NOTE | 2016-09-19 11:46 | Family Medicine Progress Note ---
Progress Note Date of Service Sep 19, 2016. Subjective Pt evaluation today including: conversation w/ patient, conversation w/ family , physical exam, chart review, lab review, review of studies, review of inpatient medication list Pain: Rt LE pain Patient reports 7/ of RLE, pain has improved with morphine, Dilaudid. She reports she is non-weight bearing. Denies CO, SOB, N/V Fever,s chills. Patient to be seen by PT this AM Constitutional: No chills, No fever, No weakness Respiratory: No cough, No shortness of breath, No sputum Cardiovascular: No chest pain, No palpitations Abdomen: No nausea, No pain, No vomiting Musculoskeletal: + problem reported (pain at proximal right femur.), No calf pain Neurologic: No numbness/tingling, No paralysis, No weakness Skin: No itch, No rash Medications Current Inpatient Medications Medications (Trade) Dose Ordered Sig/Wero Route Start Time Stop Time Status Last Admin Dose Admin Clonazepam (Klonopin Tab) 0.5 mg HS PO 09/18/16 21:00 10/18/16 20:59 09/18/16 21:42 0.5 MG Duloxetine HCl (Cymbalta Cap) 30 mg DAILY PO 09/19/16 09:00 10/19/16 08:59 09/19/16 09:00 30 MG Folic Acid (Folvite Tab) 1 mg DAILY PO 09/19/16 09:00 10/19/16 08:59 09/19/16 09:00 1 MG Lidocaine (Lidoderm Patch 5%) 1 patch DAILY PRN TD 09/18/16 19:45 10/18/16 19:44 09/18/16 21:36 1 PATCH Metoprolol Succinate (Toprol Xl Tab) 25 mg QPM PO 09/18/16 21:00 10/18/16 20:59 09/18/16 21:33 25 MG Metoprolol Succinate (Toprol Xl Tab) 50 mg QAM PO 09/19/16 09:00 10/19/16 08:59 09/19/16 09:00 50 MG Morphine Sulfate (Oramorph Sr Tab) 15 mg TID PO 09/18/16 21:00 10/02/16 20:59 09/19/16 09:07 15 MG Pramipexole Dihydrochloride (miraPEX TAB) 0.125 mg HS PO 09/18/16 21:00 10/18/16 20:59 09/18/16 21:35 0.125 MG Pravastatin Sodium (Pravachol Tab) 10 mg HS PO 09/18/16 21:00 10/18/16 20:59 09/18/16 21:34 10 MG Prednisone (PredniSONE TAB) 5 mg BID PO 09/18/16 21:00 10/18/16 20:59 09/19/16 09:00 5 MG Quetiapine Fumarate (seroQUEL TAB) 50 mg HS PO 09/18/16 21:00 10/18/16 20:59 09/18/16 21:32 50 MG Calcium/Vitamin D (Caltrate Plus Tab) 1 tab DAILY PO 09/19/16 09:00 10/19/16 08:59 09/19/16 08:59 1 TAB Pantoprazole Sodium (Protonix Tab) 40 mg DAILY PO 09/19/16 09:00 10/19/16 08:59 09/19/16 08:59 40 MG Hydromorphone HCl (Dilaudid Inj) 1.5 mg Q3H PRN IV 09/18/16 19:45 10/02/16 19:44 09/19/16 09:57 1.5 MG Acetaminophen (Tylenol Tab) 650 mg Q4H PRN PO 09/18/16 20:00 10/18/16 19:59 09/19/16 07:48 650 MG Al Hydrox/Mg Hydrox/Simethicone (Maalox Max Susp) 15 ml Q4H PRN PO 09/18/16 20:00 10/18/16 19:59 Magnesium Hydroxide (Milk Of Magnesia Susp) 30 ml Q6H PRN PO 09/18/16 20:00 10/18/16 19:59 Polyethylene (Miralax Powder Packet) 17 gm DAILY PRN PO 09/18/16 20:00 10/18/16 19:59 Ondansetron HCl (Zofran Inj) 4 mg Q6H PRN IV 09/18/16 20:00 10/18/16 19:59 Miscellaneous Information (Pending Order) 1 ea DAILY@10 N/A 09/19/16 10:00 10/19/16 09:59 Apixaban (Eliquis Tab) 5 mg BID PO 09/18/16 21:00 10/18/16 20:59 09/19/16 08:59 5 MG Objective Vital Signs Date Time Temp Pulse Resp B/P Pulse Ox O2 Delivery O2 Flow Rate FiO2 09/19/16 07:30 93 Room Air 09/19/16 06:52 36.8 70 16 114/69 93 3.0 09/19/16 00:00 Nasal Cannula 2.0 09/18/16 23:31 37.2 83 14 133/77 93 Nasal Cannula 2.0 09/18/16 20:31 65 16 116/59 92 09/18/16 20:30 36.9 77 20 136/50 96 Nasal Cannula 2.0 09/18/16 20:30 36.9 77 20 116/59 96 Nasal Cannula 2.0 09/18/16 18:29 70 16 121/65 93 Room Air 09/18/16 17:01 36.7 78 16 157/96 88 Room Air Physical Exam General Appearance: WD/WN, + mild distress Eyes: normal inspection, PERRL, EOMI Neck: supple, no carotid bruits, trachea midline Respiratory/Chest: lungs clear, normal breath sounds, no respiratory distress Cardiovascular: regular rate, rhythm, no murmur Abdomen: normal bowel sounds, non tender, soft Extremities: no pedal edema, no calf tenderness, + pertinent finding ( tenderness along proximal right femur, no swelling, erythema, ) Neurologic/Psychiatric: alert, normal mood/affect, oriented x 3 Laboratory Results Results Past 24 Hours Test 09/18/16 18:50 Range/Units White Blood Count 5.87 4.8-10.8 K/uL Red Blood Count 4.01 4.2-5.4 M/uL Hemoglobin 12.6 12.0-16.0 g/dL Hematocrit 39.8 37-47 % Mean Corpuscular Volume 99.3 80-100 fL Mean Corpuscular Hemoglobin 31.4 25-34 pg Mean Corpuscular Hemoglobin Concent 31.7 32-36 g/dl RDW Standard Deviation 49.4 36.4-46.3 fL RDW Coefficient of Variation 13.7 11.5-14.5 % Platelet Count 120 130-400 K/uL Mean Platelet Volume 9.5 7.4-10.4 fL Sodium Level 139 136-145 mmol/L Potassium Level 3.9 3.5-5.1 mmol/L Chloride Level 103 98-107 mmol/L Carbon Dioxide Level 30 21-32 mmol/L Anion Gap 6.0 3-11 mmol/L Blood Urea Nitrogen 20 7-18 mg/dl Creatinine 0.88 0.60-1.20 mg/dl Est Creatinine Clear Calc Drug Dose 47.0 ml/min Estimated GFR () 73.5 Estimated GFR (Non- 63.4 BUN/Creatinine Ratio 22.6 10-20 Random Glucose 144 70-99 mg/dl Calcium Level 8.7 8.5-10.1 mg/dl Assessment and Plan 76yo F w/ hx of RA s/p Maureen Hip, Knee replacements, s/p amputation of 2, 5 metatarsal Left foot, osteoporosis complicated by chronic back pain secondary to compression fx's p/w with hx of fall when getting out of car( without her typical walker) injuring Right femur, imaging consistent with non-displaced fx of Rt trochanter 1)Rt Femur fracture, Hx of Osteoporosis - Continue pain management ( morphine, Dilaudid) - patient non-weight bearing , uses walker at home -Continue Calcium supp. - F/u PT report 2) Hx of RA -s/p maureen knee, maureen hip replacemments -Continue Prednisone 5mg daily -MTX held 3) Atrial Fibrillation, chronic LBBB Hx Aortic Valve replacment, Hx of CVA -rate controlled -Continue Metoprolol, Eliquis -Continue Pravastatin Resident Physician Supervision Note: I was present with Dr. Lawrence during the history and exam. I discussed the case with the resident and agree with the findings and plan as documented in the note. Any exceptions or clarifications are listed here: 76-year-old female with right osteoporotic femur fracture, nondisplaced and thus nonoperative. The patient is admitted for pain control and physical therapy. Discussed with the patient that she may need inpatient rehabilitation as she is having difficulty ambulating from her recent toe amputations performed at an outside facility ([facility]). Orthopedic consult appreciated. We'll await physical therapy consultation and see how her pain is tomorrow as a formerly a plan for discharge. Documented By: Brandon Lugo Continued [facility] stay due to: inadequate oral pain control, ambulation difficulties, home environment unsafe for pt Discharge planning: rehab hospital Resident Tracking Resident Involvement: Resident Care Provided Care Provided: Adult [facility] Medicine
--- NOTE | 2016-09-19 14:22 | Clinical Documentation Query ---
CLINICAL DOCUMENTATION QUERY Dr. TREVINO, In your clinical opinion is this patient being managed for: ( ) Osteoporotic fracture, right femur ( ) Other explanation of clinical findings (Please Explain) ( ) Unable to determine (Please Define) ( ) Need to Discuss ( ) Not Agree The medical record reflects the following clinical findings, treatment, and risk factors. Clinical Indicators:76 yo female with ground level fall who sustained R femur fx. Pelvis/R femur xray showed osteopenic bones. Treatment: pain management, calcium supplements, rehab post discharge, PT eval Risk Factors: age, postmenopausal female, known hx of osteoporosis Please clarify and document your clinical opinion in the progress notes and discharge summary. Terms such as "probable", "suspected", "likely", "questionable", "possible", or "still to be ruled out" are acceptable. IF IN AGREEMENT, YOU MUST DOCUMENT ABOVE DIAGNOSTIC STATEMENT IN DAILY PROGRESS NOTES AND DISCHARGE SUMMARY. This document is not part of the patient's record. Thank You, Yaneth Barrera RN [phone]
--- NOTE | 2016-09-19 14:24 | Clinical Documentation Query ---
CLINICAL DOCUMENTATION QUERY Dr. LEDESMA, In your clinical opinion is this patient being managed for: ( xOsteoporotic fracture, right femur ( ) Other explanation of clinical findings (Please Explain) ( ) Unable to determine (Please Define) ( ) Need to Discuss ( ) Not Agree The medical record reflects the following clinical findings, treatment, and risk factors. Clinical Indicators:76 yo female with ground level fall who sustained R femur fx. Pelvis/R femur xray showed osteopenic bones. Treatment: pain management, calcium supplements, rehab post discharge, PT eval Risk Factors: age, postmenopausal female, known hx of osteoporosis Please clarify and document your clinical opinion in the progress notes and discharge summary. Terms such as "probable", "suspected", "likely", "questionable", "possible", or "still to be ruled out" are acceptable. IF IN AGREEMENT, YOU MUST DOCUMENT ABOVE DIAGNOSTIC STATEMENT IN DAILY PROGRESS NOTES AND DISCHARGE SUMMARY. This document is not part of the patient's record. Thank You, Yaneth Barrera, JULISA [phone]
[2016-09-19 15:31] VITALS: BP 114/74; PULSE 79; TEMP 36.8; O2SAT 91
--- NOTE | 2016-09-19 16:11 | CONSULTATION REPORT ---
DATE OF CONSULTATION: 09/19/2016 CHIEF COMPLAINT: Right hip pain. HISTORY OF PRESENT ILLNESS: Ms. Cedeño is a 76-year-old female with a history of rheumatoid arthritis, osteoporosis and multiple compression fractures in the lumbar spine. She underwent recent toe amputations on the left foot last week with another surgeon at a different facility. Yesterday, she was at [facility]. There, she was getting out of the vehicle to get something to eat and she said she felt sort confused and did fall landing on her right hip. She has been taking some different type of pain medication she said. She was unable to weightbear on her right lower extremity due to pain at that time. She was brought to [facility] where x-rays were obtained. She was found to have a fracture around the greater trochanter. She does have a history of bilateral hip replacements as well as bilateral knee replacements. She complains of some thigh pain at this time as well as pain laterally around the hip. She also has some right-sided rib pain. No other complaints. PAST MEDICAL AND SURGICAL HISTORY: Reviewed and includes rheumatoid arthritis, chronic AFib, aortic valve replacement, chronic left heel ulcer, osteoporosis, diastolic dysfunction, left bundle branch block, CVA, chronic back pain with multiple compression deformities, bilateral hip replacements, bilateral knee replacements, and multiple toe amputations. FAMILY HISTORY: Reviewed and includes coronary artery disease. SOCIAL HISTORY: Reviewed. She lives with her . Denies alcohol, tobacco or drug use. ALLERGIES: ASPIRIN, CELEBREX, SULFA ANTIBIOTICS AND OXYCODONE. MEDICATIONS: Reviewed and please refer to her admission H\T\P for medication list. REVIEW OF SYSTEMS: Noncontributory at this time. PHYSICAL EXAMINATION: She is in no distress. She is supine in bed. On examination of her lower extremities today, she is able to do a straight leg raise of the right lower extremity, no pain in the groin with straight leg raise or motion of the hip. She does have some more lateral thigh pain with motion of the hip. She has some bruising laterally around the hip as well. She has scars on her knees from her previous knee replacements. We took the dressing off the left foot. She has had 2 toes amputated with stitches in place, still no drainage, no signs of any infection. IMAGING DATA: X-rays were reviewed of her femur and pelvis which shows a previous total hip replacement bilaterally. There is a nondisplaced fracture of the right greater trochanter. She does appear to have older healed pelvis fracture on the right side as well of the superior and inferior pubic rami. No hip dislocation. IMPRESSION: Right hip pain, nondisplaced greater trochanter fracture. PLAN: She was seen and examined by Dr. Cintron today as well. We did change the dressing on the left foot just to look at her incision to make sure things were healing appropriately there. We did apply a new dressing to this today. No further intervention for the left foot at this time. She does have a nondisplaced fracture of the greater trochanter. Continue conservative management for this and no surgical intervention. She can weightbear as tolerated with the use of a walker for assistance and should avoid any active hip abduction. Thank you for this consult and please call with any further questions at [phone]. [facility]
[2016-09-19] MEDS: CLONAZEPAM 0.5 MG TAB PO SCH (20:52)
[2016-09-19] MEDS: QUETIAPINE FUMARATE 25 MG TAB PO SCH (20:53)
[2016-09-19] MEDS: PRAMIPEXOLE DIHYDROCHLORIDE 0.5 MG TAB PO SCH (20:53)
[2016-09-19] MEDS: METOPROLOL SUCC 25MG EXT REL TAB PO SCH (20:55)
[2016-09-19] MEDS: PRAVASTATIN SOD 10 MG TAB PO SCH (20:55)
[2016-09-20 00:14] VITALS: BP 128/83; PULSE 82; TEMP 36.8; O2SAT 94
[2016-09-20 07:41] VITALS: BP 142/85; PULSE 71; TEMP 36.9; O2SAT 90
[2016-09-20] MEDS: HYDROmorphone INJ 2 MG/ML SYR/VIAL IV PRN (08:04)
[2016-09-20 08:12] VITALS: O2SAT 90
[2016-09-20] MEDS: CALCIUM 600MG + VIT D 400 IU TAB PO SCH (08:22)
[2016-09-20] MEDS: PANTOprazole SOD 40 MG TAB PO SCH (08:23)
[2016-09-20] MEDS: APIXABAN 2.5 MG TAB PO SCH (08:23)
[2016-09-20] MEDS: DULOXETINE (CYMBALTA) 30 MG CAP PO SCH (08:23)
[2016-09-20] MEDS: METOPROLOL SUCC 50MG EXT REL TAB PO SCH (08:24)
[2016-09-20] MEDS: MoRPHine SULFATE CR 15 MG TAB (MS CONTIN) PO SCH ×2 (08:26→14:03)
[2016-09-20] MEDS: LIDODERM (LIDOCAINE) PATCH 5% TD PRN (10:29)
[2016-09-20] MEDS: ACETAMINOPHEN 325 MG TAB PO PRN ×2 (10:32→19:33)
--- NOTE | 2016-09-20 12:15 | Family Medicine Progress Note ---
Progress Note Date of Service Sep 20, 2016. Subjective Pt evaluation today including: physical exam Pain: reports 8/10 pain at L Hip, chronic back pain PO Intake: adequate Voiding: no voiding problems Patient reports ongoing pain at Rt femur rated at 8/10. She did indicate pain medication was giving her some relief. She was however out of bed sitting in chair. She stated that she had been able to get up and use the walker and make it to the commode as opposed to using the bed paige. She tolerated Physical therapy and Occupational therapy. Additional Comments: Constitutional: No chills, No fever, No weakness Respiratory: No cough, No shortness of breath, No sputum Cardiovascular: No chest pain, No palpitations Abdomen: No nausea, No pain, No vomiting Musculoskeletal: + problem reported (pain at right femur.), No calf pain Neurologic: No numbness/tingling, No paralysis, No weakness Skin: No itch, No rash Medications Current Inpatient Medications Medications (Trade) Dose Ordered Sig/Wero Route Start Time Stop Time Status Last Admin Dose Admin Clonazepam (Klonopin Tab) 0.5 mg HS PO 09/18/16 21:00 10/18/16 20:59 09/19/16 20:52 0.5 MG Duloxetine HCl (Cymbalta Cap) 30 mg DAILY PO 09/19/16 09:00 10/19/16 08:59 09/20/16 08:23 30 MG Folic Acid (Folvite Tab) 1 mg DAILY PO 09/19/16 09:00 10/19/16 08:59 09/20/16 08:23 1 MG Lidocaine (Lidoderm Patch 5%) 1 patch DAILY PRN TD 09/18/16 19:45 10/18/16 19:44 09/20/16 10:29 1 PATCH Metoprolol Succinate (Toprol Xl Tab) 25 mg QPM PO 09/18/16 21:00 10/18/16 20:59 09/19/16 20:55 25 MG Metoprolol Succinate (Toprol Xl Tab) 50 mg QAM PO 09/19/16 09:00 10/19/16 08:59 09/20/16 08:24 50 MG Morphine Sulfate (Oramorph Sr Tab) 15 mg TID PO 09/18/16 21:00 10/02/16 20:59 09/20/16 08:26 15 MG Pramipexole Dihydrochloride (miraPEX TAB) 0.125 mg HS PO 09/18/16 21:00 10/18/16 20:59 09/19/16 20:53 0.125 MG Pravastatin Sodium (Pravachol Tab) 10 mg HS PO 09/18/16 21:00 10/18/16 20:59 09/19/16 20:55 10 MG Prednisone (PredniSONE TAB) 5 mg BID PO 09/18/16 21:00 10/18/16 20:59 09/20/16 08:23 5 MG Quetiapine Fumarate (seroQUEL TAB) 50 mg HS PO 09/18/16 21:00 10/18/16 20:59 09/19/16 20:53 50 MG Calcium/Vitamin D (Caltrate Plus Tab) 1 tab DAILY PO 09/19/16 09:00 10/19/16 08:59 09/20/16 08:22 1 TAB Pantoprazole Sodium (Protonix Tab) 40 mg DAILY PO 09/19/16 09:00 10/19/16 08:59 09/20/16 08:23 40 MG Hydromorphone HCl (Dilaudid Inj) 1.5 mg Q3H PRN IV 09/18/16 19:45 10/02/16 19:44 09/20/16 08:04 1.5 MG Acetaminophen (Tylenol Tab) 650 mg Q4H PRN PO 09/18/16 20:00 10/18/16 19:59 09/20/16 10:32 650 MG Al Hydrox/Mg Hydrox/Simethicone (Maalox Max Susp) 15 ml Q4H PRN PO 09/18/16 20:00 10/18/16 19:59 Magnesium Hydroxide (Milk Of Magnesia Susp) 30 ml Q6H PRN PO 09/18/16 20:00 10/18/16 19:59 Polyethylene (Miralax Powder Packet) 17 gm DAILY PRN PO 09/18/16 20:00 10/18/16 19:59 Ondansetron HCl (Zofran Inj) 4 mg Q6H PRN IV 09/18/16 20:00 10/18/16 19:59 Apixaban (Eliquis Tab) 5 mg BID PO 09/18/16 21:00 10/18/16 20:59 09/20/16 08:23 5 MG Miscellaneous (Remove Lidoderm Patch) 1 ea DAILY@2100 N/A 09/20/16 21:00 10/20/16 20:59 Objective Vital Signs Date Time Temp Pulse Resp B/P Pulse Ox O2 Delivery O2 Flow Rate FiO2 09/20/16 08:12 90 Room Air 09/20/16 07:41 36.9 71 18 142/85 90 Room Air 09/20/16 00:30 Room Air 09/20/16 00:14 36.8 82 18 128/83 94 Nasal Cannula 2.0 09/19/16 17:00 Room Air 09/19/16 15:31 36.8 79 18 114/74 91 Room Air Physical Exam Notes: General Appearance: WD/WN, no apparent distress Eyes: normal inspection, PERRL, EOMI Neck: supple, no carotid bruits, trachea midline Respiratory/Chest: lungs clear, normal breath sounds, no respiratory distress Cardiovascular: regular rate, rhythm, no murmur Abdomen: normal bowel sounds, non tender, soft Extremities: no pedal edema, no calf tenderness, + pertinent finding ( tenderness along proximal right femur, no swelling, erythema, ) Neurologic/Psychiatric: alert, normal mood/affect, oriented x 3 Assessment and Plan 76yo F w/ hx of RA s/p Mario Alberto Hip, Knee replacements, s/p amputation of 2, 5 metatarsal Left foot, osteoporosis complicated by chronic back pain secondary to compression fx's p/w with hx of fall when getting out of car( without her typical walker) injuring Right femur, imaging consistent with non-displaced fx of Rt trochanter 1)Rt Femur fracture, Hx of Osteoporosis - Continue pain management ( morphine, Dilaudid) - patient currently -weight bearing , -tolerating physical therapy, ambulating with walker with assistance -Continue Calcium supp. - PT recommends inpatient rehab 2) Hx of RA -s/p mario alberto knee, mario alberto hip replacements -Continue Prednisone 5mg daily -MTX held 3) Atrial Fibrillation, chronic LBBB Hx Aortic Valve replacment, Hx of CVA -rate controlled -Continue Metoprolol, Eliquis -Continue Pravastatin 4) DVT Prophylaxis - already on Eliquis 6) GERD -Protonix 7) Disposition - Discussed with Case management -[facility] --awaiting processing for approval Resident Physician Supervision Note: I was present with Dr. Lawrence during the history and exam. I discussed the case with the resident and agree with the findings and plan as documented in the note. Any exceptions or clarifications are listed here: The patient's pain seems well controlled. She's had limited ambulation in the room using a walker and assist. Physical therapy recommends inpatient rehabilitation given the combination of her femur fracture and recent toe amputations. PLAN 1) inpatient rehabilitation pending insurance approval and bed availability 2) pain control seems adequate at this point. Documented By: Brandon Lugo Continued [facility] stay due to: ambulation difficulties, home environment unsafe for pt Discharge planning: rehab hospital Resident Tracking Resident Involvement: Resident Care Provided Care Provided: Adult Hospital Medicine
[2016-09-20 15:25] VITALS: BP 127/78; PULSE 65; TEMP 36.8; O2SAT 94
--- NOTE | 2016-09-20 18:18 | Discharge Instructions ---
Discharge Instructions Date of Service Sep 20, 2016. Admission Reason for Admission: Hip Fracture Due To Osteoporosis Discharge Discharge Diagnosis / Problem: Fracture of Right Femur at Trochanter Discharge Goals Goal(s): Decrease discomfort, Improve function, Increase independence, Improve disease control, Improve nutritional status, Learn about illness, Diagnostic testing, Therapeutic intervention, Screening, Prevent Disease Progression, Specific goals Activity Recommendations Activity Level: Assistance Required (ambulates with walker) Therapies: Physical Therapy, Weight Bearing Status, Occupational Therapy Weightbearing Status: Left weightbearing, Right weightbearing (as tolerated) Lifting Limitations: none, gradually increase as tolerated Exercise/Sports Limitations: gradually increase as tolerated Shower/Bathe: no limitations . Additional Information Patient informed of condition: Yes Advance Directives: Yes DNR: No Level of Care: Acute Rehab Communicable Disease: No Prognosis: Improving Barakat Catheter: No Instructions / Follow-Up Instructions / Follow-Up 76yo F w/ hx of RA s/p Mario Alberto Hip, Knee replacements, s/p amputation of 2, 5 metatarsal Left foot, osteoporosis complicated by chronic back pain secondary to compression fx's p/w with hx of fall when getting out of car( without her typical walker) injuring Right femur, found to have non-displaced fx of Rt trochanter 1)Rt Femur fracture, Hx of Osteoporosis - Continue pain management ( morphine, Dilaudid) - patient currently -weight bearing with walker -tolerating physical therapy, ambulating with walker with assistance -Continue Pain Management -Continue Calcium supp. 2) Hx of RA -s/p mario alberto knee, mario alberto hip replacements -Continue Prednisone 5mg daily -MTX, Humira held during stay, -Restarted on D/C 3) Atrial Fibrillation, chronic LBBB Hx Aortic Valve replacement, Hx of CVA -rate controlled -Continue Metoprolol, Eliquis -Continue Pravastatin 4) DVT Prophylaxis - already on Eliquis 6) GERD -Protonix 7) Disposition - Discussed with Case management -On License [facility] -Follow up with Primary Care Doctor within 1 week of discharge from Rehab facility -Follow up with Superintendent Transmission within 2 weeks of Discharge from Rehab facility Current Hospital Diet Patient's current hospital diet: AHA Diet (Heart Healthy) Discharge Diet Recommended Diet: AHA Diet (Heart Healthy) Pending Studies Studies pending at discharge: no Medical Emergencies . Who to Call and When: Medical Emergencies: If at any time you feel your situation is an emergency, please call [phone] immediately. . Non-Emergent Contact Non-Emergency issues call your: Primary Care Provider, Specialist ( Superintendent Transmission) . . "Provider Documentation" section prepared by Kaushik Lawrence. . Core Measure Problem Core Measures: None Resident Tracking Resident Involvement: Resident Care Provided Care Provided: Adult Hospital Medicine
--- NOTE | 2016-09-20 18:36 | Discharge Summary ---
Discharge Summary Date of Service Sep 20, 2016. (Kaushik Lawrence MD) Discharge Summary Admission Date: Sep 18, 2016 at 19:48 Discharge Date: Sep 20, 2016 Discharge Disposition: Rehab Principal Diagnosis: Right Femur Fracture Problems/Secondary Diagnoses: RA Osteoporosis Immunizations: Have You Had Influenza Vaccine: Yes Influenza Vaccine Date: Feb 23, 2013 History of Tetanus Vaccine?: Unknown Tetanus Immunization Date: Mar 23, 2009 History of Pneumococcal: Yes Pneumococcal Date: Feb 21, 2011 History of Hepatitis B Vaccine: Unknown Procedures: HEAD CT NONCONTRAST CT DOSE: 537.48 mGy.cm HISTORY: fall, on blood thinners, GCS 15 TECHNIQUE: Multiaxial CT images of the head were performed without the use of intravenous contrast. Automated exposure control was utilized for this study. Comparison: Head CT 01/02/2016. Findings: The paranasal sinuses and mastoid air cells are clear. The calvarium and skull base are intact. There is no mass, hematoma, midline shift, acute infarct. White matter hypodensity is nonspecific but suggestive of microvascular ischemic change. The ventricles and sulci demonstrate mild age-related involutional changes. 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 Impression: No significant change compared to the prior study. No acute intracranial abnormality. ] PELVIS 1 OR 2 VIEW ROUTINE, RIGHT FEMUR 2 VIEWS ROUTINE CLINICAL HISTORY: Fall, right upper leg pain COMPARISON STUDY: Pelvis 03/03/2013. FINDINGS: Bilateral total hip arthroplasties. Nondisplaced fracture within the right greater trochanter. This involves both the base of the greater trochanter as well as the tip of the greater trochanter. Old, healed right pubic ring fractures. The bones are osteopenic. No dislocation. The sacrum appears intact. Vascular calcifications are noted. There is a right total knee arthroplasty. The hardware appears intact. IMPRESSION: 1. Nondisplaced fracture within the right greater trochanter. 2. Bilateral total hip arthroplasties and a right knee arthroplasty. 3. Old, healed right pubic ring fractures. 4. No dislocation. PELVIS 1 OR 2 VIEW ROUTINE, RIGHT FEMUR 2 VIEWS ROUTINE CLINICAL HISTORY: Fall, right upper leg pain COMPARISON STUDY: Pelvis 03/03/2013. FINDINGS: Bilateral total hip arthroplasties. Nondisplaced fracture within the right greater trochanter. This involves both the base of the greater trochanter as well as the tip of the greater trochanter. Old, healed right pubic ring fractures. The bones are osteopenic. No dislocation. The sacrum appears intact. Vascular calcifications are noted. There is a right total knee arthroplasty. The hardware appears intact. IMPRESSION: 1. Nondisplaced fracture within the right greater trochanter. 2. Bilateral total hip arthroplasties and a right knee arthroplasty. 3. Old, healed right pubic ring fractures. 4. No dislocation. ] CHEST ONE VIEW PORTABLE HISTORY: fall, mild hypoxia COMPARISON: Chest 12/27/2013. FINDINGS: Right shoulder arthroplasty. Severe left shoulder osteoarthritis. No pleural effusions. No pneumothorax. Mild interstitial thickening which is likely chronic. No focal lung consolidations to suggest pneumonia. The heart is borderline enlarged. There are postoperative changes and an aortic valve prosthesis. IMPRESSION: Stable chronic interstitial thickening. Otherwise, no acute process within the chest. Consultations: Orthopedic Surgery (Kaushik Lawrence MD) Medication Reconciliation Continued Medications: Adalimumab (Humira) 20 Mg/0.4 Ml Kit TAKES EVERY OTHER FRIDAY. Apixaban (Eliquis) 5 Mg Tab 5 MG PO BID Calcium Carbonate-Vitamin D (Calcium + D3 600-200 mg-Unit) 1 Tab Tab 1 TAB PO DAILY Clonazepam (Klonopin) 0.5 Mg Tab 0.5 MG PO HS, TAB Duloxetine Hcl (Cymbalta) 30 Mg Cap 30 MG PO DAILY, CAP Folic Acid (Folvite) 1 Mg Tab 1 TAB PO DAILY for 90 Days, #90 TAB 1 Refill Hydromorphone Hcl (Dilaudid) 2 Mg Tab 1 TAB PO QID PRN for Pain for 30 Days, #120 TAB Lidocaine (Lidocaine) 1 Patch Tdsy 5 % EXT DAILY PRN for Pain for 30 Days Methotrexate (Methotrexate) 2.5 Mg Tab 10 MG PO WK, TAB TAKES ON TUESDAYS. Metoprolol Succ (Toprol Xl) (Toprol-Xl) 25 Mg Tabcr 25 MG PO QPM, 0 Refills Metoprolol Succ (Toprol Xl) (Toprol-Xl) 50 Mg Tabcr 50 MG PO QAM, #30 TAB Morphine Sulfate (Morphine Sulfate ER) 15 Mg Tabcr 15 MG PO TID for 30 Days Omeprazole (Prilosec) 40 Mg Cap 40 MG PO DAILY, CAP Oxygen (Oxygen) Gas 2 LITERS NA HS Pramipexole Dihydrochloride (Mirapex) 0.125 Mg Tab 0.125 MG PO HS, TAB Pravastatin (Pravachol ) 20 Mg Tab 10 MG PO HS, TAB Prednisone (Prednisone) 5 Mg Tab 5 MG PO BID, TAB Quetiapine Fumarate (Seroquel) 50 Mg Tab 50 MG PO HS, 0 Refills Discharge Exam Constitutional: No chills, No fever, No weakness Respiratory: No cough, No shortness of breath, No sputum Cardiovascular: No chest pain, No palpitations Abdomen: No nausea, No pain, No vomiting Musculoskeletal: + problem reported (pain at right femur.), No calf pain Neurologic: No numbness/tingling, No paralysis, No weakness Skin: No itch, No rash General Appearance: WD/WN, no apparent distress Eyes: normal inspection, PERRL, EOMI Neck: supple, no carotid bruits, trachea midline Respiratory/Chest: lungs clear, normal breath sounds, no respiratory distress Cardiovascular: regular rate, rhythm, no murmur Abdomen: normal bowel sounds, non tender, soft Extremities: no pedal edema, no calf tenderness, + pertinent finding ( tenderness along proximal right femur, no swelling, erythema, ) Neurologic/Psychiatric: alert, normal mood/affect, oriented x 3 (Kaushik Lawrence MD) Hospital Course 76yo F w/ hx of RA s/p Maureen Hip, Knee replacements, s/p amputation of 2, 5 metatarsal Left foot, osteoporosis complicated by chronic back pain secondary to compression fx's p/w with hx of fall when getting out of car( without her typical walker) injuring Right femur, found to have non-displaced fx of Rt trochanter 1)Rt Femur fracture, Hx of Osteoporosis - pain management with ( morphine, Dilaudid) - Patient arrvied non-weightbearing - BY discharge currently -weight bearing with walker -tolerated physical therapy, ambulated with walker with assistance 2) Hx of RA -s/p maureen knee, maureen hip replacements -On Prednisone 5mg daily -MTX, Humira held during stay, -Restarted on D/C 3) Atrial Fibrillation, chronic LBBB Hx Aortic Valve replacement, Hx of CVA -rate controlled -Continued Metoprolol, Eliquis -Continued Pravastatin 4) DVT Prophylaxis - was already on Eliquis 6) GERD -Protonix 7) Disposition Discharged to [facility] for Rehab Total Time Spent: Less than 30 minutes This includes examination of the patient, discharge planning, medication reconciliation, and communication with other providers. (Kaushik Lawrence MD) Resident Physician Supervision Note: I was present with Dr. Lawrence during the history and exam. I discussed the case with the resident and agree with the findings and plan as documented in the note. Any exceptions or clarifications are listed here: [None] Documented By: Brandon Lugo (Brandon Lugo.,D.O.) Discharge Instructions Please refer to the electronic Patient Visit Report (Discharge Instructions) for additional information. (Kaushik Lawrence MD) Follow-Up -PCP -Rheumatology (Kaushik Lawrence MD) Additional Copies To [facility]; Cuong Chavez M.D.
[2016-09-20 19:16] VITALS: BP 127/78; PULSE 65; TEMP 36.8; O2SAT 94
== END 2016-09-20 19:50 | DRG 544 ==
LOC: ENRESERVDT → ENRESERVTM → C.EDB 16:58 → C.MSW 19:48
PROVIDERS: ADMIT Internal Medicine; ATTEND Family Medicine
DX: M84.451A Pathological fracture, right femur, initial encounter for fracture (principal); I51.89 Other ill-defined heart diseases; S51.011A Laceration without foreign body of right elbow, initial encounter; I48.91 Unspecified atrial fibrillation; M81.0 Age-related osteoporosis without current pathological fracture; M54.5 Low back pain; G89.29 Other chronic pain; W19.XXXA Unspecified fall, initial encounter; K21.9 Gastro-esophageal reflux disease without esophagitis; M06.9 Rheumatoid arthritis, unspecified; I44.7 Left bundle-branch block, unspecified; Z96.643 Presence of artificial hip joint, bilateral; Z96.653 Presence of artificial knee joint, bilateral; M84.48XD Pathological fracture, other site, subsequent encounter for fracture with routine healing; Z86.73 Personal history of transient ischemic attack (TIA), and cerebral infarction without residual deficits; Z89.432 Acquired absence of left foot; Z95.2 Presence of prosthetic heart valve; Z79.01 Long term (current) use of anticoagulants; Z79.891 Long term (current) use of opiate analgesic; Z79.899 Other long term (current) drug therapy; Z99.81 Dependence on supplemental oxygen; Z79.52 Long term (current) use of systemic steroids

== ENCOUNTER → 2016-11-18 | Outpatient (CLI) | payer BC ==
[~2016-11-18] MED LIST changes: -CEPH500C2 PO; -HYDR2TAB48 PO
--- NOTE | 2016-11-18 14:57 | DIAGNOSTIC IMAGING REPORT ---
LEFT SHOULDER MIN 2 VIEWS ROUTINE CLINICAL HISTORY: Rheumatoid arthritis. Bilateral shoulder pain. COMPARISON: None FINDINGS: Incidental note is made of median sternotomy wires. There is marked narrowing of the joint space of the glenohumeral joint. There is significant subacromial space narrowing. There is moderate AC joint arthrosis. No fracture or suspicious lesion is present. A calcific density is noted adjacent to the coracoid. IMPRESSION: 1. Marked glenohumeral joint space narrowing. This could reflect rheumatoid arthritis or less likely osteoarthritis. 2. Narrowing of subacromial space which suggests a chronic rotator cuff tear. Electronically signed by: Flavio Minaya M.D. 11/18/2016 2:56 PM Dictated Date/Time: 11/18/2016 2:53 PM
--- NOTE | 2016-11-18 15:04 | DIAGNOSTIC IMAGING REPORT ---
RIGHT SHOULDER MIN 2 VIEWS ROUTINE CLINICAL HISTORY: Rheumatoid arthritis. Bilateral shoulder pain. COMPARISON: Right shoulder radiograph February 21, 2014. FINDINGS: Alignment of the right shoulder arthroplasty is anatomic. There is no periprosthetic fracture or lucency. A few calcific densities adjacent to the proximal right humerus are noted. These are likely chronic. There is moderate AC joint arthrosis. IMPRESSION: 1. Status post right shoulder arthroplasty. No periprosthetic fracture or lucency. 2. Moderate arthritis of the right acromioclavicular joint. 3. Several calcific densities adjacent to the proximal right humerus which are chronic. Electronically signed by: Flavio Minaya M.D. 11/18/2016 3:02 PM Dictated Date/Time: 11/18/2016 3:00 PM
--- NOTE | 2016-11-18 15:13 | DIAGNOSTIC IMAGING REPORT ---
CERVICAL SPINE 5 VIEWS CLINICAL HISTORY: Rheumatoid arthritis. Chronic neck pain. FINDINGS: AP, lateral, bilateral oblique, and odontoid views of the cervical spine are compared to study dated 12/27/[address] scan of the cervical spine dated 03/22/2011. The skeletal structures are osteopenic. There is no radiographic evidence of fracture or subluxation. There is straightening of the cervical lordosis. The odontoid process and lateral masses appear intact on the open-mouth view. The atlantodental articulation appears maintained noting productive degenerative change. The spinolaminar line is maintained. Vertebral body height is maintained throughout the cervical spine. There is minimal anterolisthesis at C2-C3 and C4-C5. Alignment is otherwise preserved. Anterior osteophytes are seen throughout. There is moderate to advanced degenerative disc space narrowing seen at C5-C6 and C6-C7. Mild disc space narrowing seen at the remaining levels. Posterior disc osteophyte complex is at C5-C6 and C6-C7 likely contribute to acquired compromise of the central canal. Mild multilevel bilateral neural foraminal stenosis is suggested on the oblique views. Facet arthropathy is seen throughout the cervical chain. The prevertebral soft tissues are within normal limits. The partially imaged apical lung parenchyma appears clear. Midline sternotomy wires are noted. A right shoulder arthroplasty is in place. The patient is edentulous. There is atherosclerotic calcification of the carotid bulbs. IMPRESSION: 1. No acute bony abnormality is seen involving the cervical spine. 2. Osteopenia and spondylotic change as above. Dictated: 11/18/2016 2:56 PM Transcribed: 11/18/2016 3:12 PM Fátima Electronically signed by: Golden Johnson M.D. 11/18/2016 3:13 PM Dictated Date/Time: 11/18/2016 2:56 PM
[2016-11-18 15:21] LABS: ALKALINE PHOSPHATASE 70 U/L (45-117); ALT/SGPT 26 U/L (12-78); AST/SGOT 27 U/L (15-37); CREATININE 0.79 mg/dl (0.60-1.20)
[2016-11-18 16:55] LABS: BASO % 0.2 %; BASO ABS # 0.01 K/uL (0-0.2); COMPLETE YES; EOS % 0.5 %; HEMATOCRIT 37.9 % (37-47); LYMPH % 14.7 %; LYMPH ABS # 0.86 K/uL (1.2-3.4); MEAN CELL VOLUME 97.9 fL (80-100); MEAN CORPUSCULAR HEMOGLOBIN 31.8 pg (25-34); MEAN CORPUSCULAR HGB CONC 32.5 g/dl (32-36); MEAN PLATELET VOLUME 9.7 fL (7.4-10.4); MONO % 7.8 %; NEUT % 75.8 %; PLATELET COUNT 141 K/uL (130-400); RED BLOOD COUNT 3.87 M/uL (4.2-5.4); WHITE BLOOD COUNT 5.86 K/uL (4.8-10.8)
== END | disposition home or self-care (01) ==
LOC: C.RAD1850 14:09
PROVIDERS: ATTEND Internal Medicine Rheumatology
DX: M06.9 Rheumatoid arthritis, unspecified (principal); M25.511 Pain in right shoulder; M25.512 Pain in left shoulder; Z79.52 Long term (current) use of systemic steroids; Z79.899 Other long term (current) drug therapy; M85.88 Other specified disorders of bone density and structure, other site; M85.811 Other specified disorders of bone density and structure, right shoulder; M85.812 Other specified disorders of bone density and structure, left shoulder; M25.551 Pain in right hip; M84.459S Pathological fracture, hip, unspecified, sequela; X58.XXXS Exposure to other specified factors, sequela

== ENCOUNTER → 2016-11-18 | Outpatient (CLI) | payer BC ==
--- NOTE | 2016-11-18 15:53 | DIAGNOSTIC IMAGING REPORT ---
CT OF THE RIGHT HIP AND FEMUR CT DOSE: 386.00 mGy.cm HISTORY: Pain X TECHNIQUE: Multiaxial CT images of the right hip and femur were performed and reformatted in the sagittal and coronal plane without the use of contrast. COMPARISON: 03/23/2011 FINDINGS: Evidence for a total right hip arthroplasty. Good contact between prosthetic and underlying bone at the level of the acetabulum. Lateral to the femoral prosthetic at the level greater trochanter is nondisplaced short segment cortical fracture. Remainder of the femur is unremarkable. Patient is status post total right knee prosthetic. IMPRESSION: 1. Short segment Cortical fracture greater trochanter medially lateral to the patient's femoral prosthetic. 2. Study is otherwise negative status post total right hip and right knee replacement Electronically signed by: Slava Strong M.D. 11/18/2016 3:51 PM Dictated Date/Time: 11/18/2016 3:45 PM
== END | disposition home or self-care (01) ==
LOC: C.CTS 15:15
PROVIDERS: ATTEND Family Medicine
DX: M25.551 Pain in right hip (principal); M84.459S Pathological fracture, hip, unspecified, sequela; X58.XXXS Exposure to other specified factors, sequela

== ENCOUNTER → 2017-01-14 | Outpatient (CLI) | payer BC ==
--- NOTE | 2017-01-14 11:40 | DIAGNOSTIC IMAGING REPORT ---
RIGHT KNEE 1 OR 2 VIEWS ROUTINE CLINICAL HISTORY: 76 years-old Female presenting with osteoporosis, long-term steroid use, bilateral knee pain. TECHNIQUE: Frontal and lateral views of the right knee were obtained. COMPARISON: 01/18/2014. FINDINGS: Postsurgical changes of total right knee arthroplasty with patellar resurfacing. Interval development of prominent bony spurring along the inferior patella, directed towards the joint space. A loose body immediately inferior to this may also be present. Loose bodies versus heterotopic ossification also noted superior to the patella. No acute fracture or malalignment. No hardware complication. No large effusion. Atherosclerosis. IMPRESSION: 1. Postsurgical changes of total right knee arthroplasty with patellar resurfacing. No hardware complication. 2. Prominent bony spurring of the inferior aspect of the patella with possible loose bodies versus heterotopic ossification described above. Electronically signed by: Chase Rocha M.D. 01/14/2017 11:39 AM Dictated Date/Time: 01/14/2017 11:37 AM
--- NOTE | 2017-01-14 11:41 | DIAGNOSTIC IMAGING REPORT ---
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 FINDINGS: There has been total knee arthroplasty with patellar resurfacing. Hardware is intact without evidence of complication. Alignment is satisfactory. The bones are moderately demineralized. Peripheral vascular calcifications are noted. No acute bony fracture or dislocation. There is a small knee joint effusion. 7 mm ossified body is seen within the suprapatellar recess. 2.6 x 1.6 cm ossified body is noted adjacent to the posterior tibia. IMPRESSION: 1. Small joint effusion without acute fracture or dislocation. 2. Arthroplasty hardware appears intact without complication. 3. 2.6 cm ossified body is noted posterior to the proximal tibia. The above report was generated using voice recognition software. It may contain grammatical, syntax or spelling errors. Electronically signed by: Sincere Chen M.D. 01/14/2017 11:40 AM Dictated Date/Time: 01/14/2017 11:37 AM
== END | disposition home or self-care (01) ==
LOC: C.RAD1850 10:54
PROVIDERS: ATTEND Internal Medicine Rheumatology
DX: M81.0 Age-related osteoporosis without current pathological fracture (principal); M89.9 Disorder of bone, unspecified; Z79.52 Long term (current) use of systemic steroids; Z79.899 Other long term (current) drug therapy; Z96.651 Presence of right artificial knee joint; Z96.652 Presence of left artificial knee joint

== ENCOUNTER → 2017-02-20 | Outpatient (CLI) | payer BC ==
--- NOTE | 2017-02-20 11:59 | DIAGNOSTIC IMAGING REPORT ---
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 COMPARISON: Cervical spine radiographs 11/18/2016, lumbar spine CT 09/05/2016, chest radiograph 12/27/2013. TECHNIQUE: 5 views of the cervical spine and 2 views of the thoracic spine FINDINGS: CERVICAL SPINE: Stepwise anterolisthesis of approximately 2 mm is noted at C2-C3, C3-C4 and C4-C5, likely on a degenerative basis. Severe multilevel intervertebral disc space narrowing and facet arthropathy is noted with background osteopenia and uncovertebral spurring. Facet bony fusion is noted at 2-C3. No atlantodental interval widening identified. There is mild straightening of the normal cervical lordosis. Degenerative changes contribute to cause moderate to severe right-sided bony neuroforaminal stenosis at 6-C7. Multiple levels on the left demonstrate at least moderate bony neuroforaminal stenosis with relative sparing of the C6-C7 level. No acute fracture or subluxation. Prior median sternotomy. There is atherosclerosis of the carotid bulbs. No prevertebral soft tissue swelling identified. THORACIC SPINE: Prior median sternotomy. Cardiac silhouette is enlarged. Mitral annular calcifications are noted. Valvular prosthesis is present. There is atherosclerosis of the aorta. Bones are moderately demineralized. Approximately 60% anterior and mid compression deformity of the T8 vertebral body is noted, unchanged dating back to at least 12/27/2013. There is at least a few millimeters of retropulsion at this level. Additional compression deformities are seen at L1, L2 and L3 which appear unchanged. No acute compression deformity or malalignment identified. Multilevel endplate spurring and facet arthropathy is noted. IMPRESSION: 1. No acute fracture or subluxation of the cervical or thoracic spine. 2. Osteopenia with multilevel degenerative changes as detailed above. 3. Unchanged compression deformities of T8, L1, L2 and L3. No acute compression deformity identified. The above report was generated using voice recognition software. It may contain grammatical, syntax or spelling errors. Electronically signed by: Sincere Chen M.D. 02/20/2017 11:58 AM Dictated Date/Time: 02/20/2017 11:51 AM
[2017-02-20 12:10] LABS: BASO % 0.1 %; BASO ABS # 0.01 K/uL (0-0.2); COMPLETE YES; EOS % 0.9 %; HEMATOCRIT 41.4 % (37-47); IG% 0.9 %; MEAN CELL VOLUME 103.2 fL (80-100); MEAN CORPUSCULAR HEMOGLOBIN 31.9 pg (25-34); MEAN CORPUSCULAR HGB CONC 30.9 g/dl (32-36); MEAN PLATELET VOLUME 9.3 fL (7.4-10.4); MONO % 7.1 %; PLATELET COUNT 116 K/uL (130-400); RED BLOOD COUNT 4.01 M/uL (4.2-5.4); WHITE BLOOD COUNT 7.03 K/uL (4.8-10.8)
[2017-02-20 12:33] LABS: ALT/SGPT 26 U/L (12-78); CREATININE 0.78 mg/dl (0.60-1.20)
[2017-02-20 12:36] LABS: ALKALINE PHOSPHATASE 54 U/L (45-117); AST/SGOT 23 U/L (15-37)
== END | disposition home or self-care (01) ==
LOC: C.RAD1850 10:53
PROVIDERS: ATTEND Internal Medicine Rheumatology
DX: M54.2 Cervicalgia (principal); M06.9 Rheumatoid arthritis, unspecified; Z51.81 Encounter for therapeutic drug level monitoring; Z79.52 Long term (current) use of systemic steroids; Z79.899 Other long term (current) drug therapy; M85.88 Other specified disorders of bone density and structure, other site

== ENCOUNTER 2017-05-15 07:58 | Inpatient (IN) | payer BC, OTHER ==
[~2017-05-15] VITALS: Ht 160 cm; Wt 62.1 kg
[~2017-05-15 07:58] MED LIST changes: -FOLI1TAB7 PO; +FOLI1TAB8 PO
[2017-05-15] MEDS ORDERED: SODIUM CHLORIDE 0.9% 1000ML 1,000 ML IV SCH (08:20)
[2017-05-15 08:35] LABS: HEMATOCRIT 39.3 % (37-47); HEMOGLOBIN 12.7 g/dL (12.0-16.0); MEAN CELL VOLUME 101.6 fL (80-100); MEAN CORPUSCULAR HEMOGLOBIN 32.8 pg (25-34); MEAN CORPUSCULAR HGB CONC 32.3 g/dl (32-36); RED CELL DISTRIBUTION WIDTH CV 14.8 % (11.5-14.5); RED CELL DISTRIBUTION WIDTH SD 53.7 fL (36.4-46.3); WHITE BLOOD COUNT 3.55 K/uL (4.8-10.8)
[2017-05-15 08:50] LABS: PTT PATIENT 24.1 SECONDS (21.0-31.0)
[2017-05-15 08:52] LABS: BLOOD UREA NITROGEN 18 mg/dl (7-18); CALCIUM 9.1 mg/dl (8.5-10.1); CARBON DIOXIDE 30 mmol/L (21-32); CREATININE 0.78 mg/dl (0.60-1.20); GLUCOSE 129 mg/dl (70-99); POTASSIUM 4.1 mmol/L (3.5-5.1); SODIUM 137 mmol/L (136-145)
[2017-05-15 08:57] LABS: CKMB 1.2 ng/ml (0.5-3.6)
--- NOTE | 2017-05-15 09:04 | DIAGNOSTIC IMAGING REPORT ---
HEAD WITHOUT CONTRAST (CT) CLINICAL HISTORY: 77 years-old Female with Stroke. Acute strokelike symptoms TECHNIQUE: Multiple axial CT images of the head were obtained without contrast. A dose lowering technique was utilized adhering to the principles of ALARA. CT DOSE: 537.48 mGy.cm COMPARISON: CT head 09/18/2016. FINDINGS: No acute intracranial hemorrhage, midline shift, intracranial mass, hydrocephalus, territorial ischemia or abnormal extra-axial collection. Remote right parietal occipital infarction. Mild atrophy with moderate chronic microvascular ischemic changes. Ill-defined area of low-attenuation involving the inferior right cerebellar hemisphere is also again noted suggesting remote infarction. Remote lacunar infarction of the left caudate nucleus. The calvarium is intact. The paranasal sinuses, mastoid air cells, and middle ear cavities are clear. IMPRESSION: Chronic changes as above without acute intracranial abnormality. The above report was generated using voice recognition software. It may contain grammatical, syntax or spelling errors. Electronically signed by: Sincere Chen M.D. 05/15/2017 9:02 AM Dictated Date/Time: 05/15/2017 8:59 AM
[2017-05-15 09:07] LABS: MEAN PLATELET VOLUME 9.5 fL (7.4-10.4); PLATELET COUNT 98 K/uL (130-400)
[2017-05-15] MEDS ORDERED: FNTTP75 (09:10)
[2017-05-15] MEDS ORDERED: SENN-61 PO (09:10)
[2017-05-15] MEDS ORDERED: PANT40TA PO (09:10)
[2017-05-15] MEDS ORDERED: HYDR2TAB48 PO (09:10)
[2017-05-15 09:34] LABS: BASO % 0.3 %; BASO ABS # 0.01 K/uL (0-0.2); EOS % 2.5 %; EOS ABS # 0.09 K/uL (0-0.5); IG# 0.03 K/uL (0.00-0.02); LYMPH % 31.8 %; LYMPH ABS # 1.13 K/uL (1.2-3.4); MONO % 9.6 %; MONO ABS # 0.34 K/uL (0.11-0.59); NEUT ABS # 1.95 K/uL (1.4-6.5)
[2017-05-15] MEDS ORDERED: CEFTRIAXONE SOD INJ 1 GM ADDVIAL IV STA (09:42)
--- NOTE | 2017-05-15 09:52 | EMERGENCY ROOM VISIT NOTE ---
ED Visit Note First contact with patient: 08:08 The patient was seen and examined with Doug Clemens PA-C. I agree with the history, physical and findings. Please see the note for disposition and details.
[2017-05-15 10:49] VITALS: BP 125/79; PULSE 80; TEMP 36.7; Ht 160 cm; Wt 62.1 kg
--- NOTE | 2017-05-15 11:09 | History and Physical ---
History & Physical Date & Time of Service: May 15, 2017 at 10:46 Chief Complaint: Stroke Syms Primary Care Physician: Cuong Chavez M.D. 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 Patient was in her regular state of health until about 1 week ago. As per and patient she started feeling off. No specific description to her symptoms but was slightly confused and feeling tired. She was able to function and move around the house. This morning she woke up and walk to the bathroom. She got lost and was more confused than before. When her tried to talk to her she was having some problem communicating and expressing what she feels. brought her to the emergency department for further evaluation and management. In the emergency department patient was giving some IV fluids, ceftriaxone and was noticed to have significant improvement. By the time of my evaluation her expressive aphasia almost resolved. 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, and partial blindness of left eye chronic back pain with multiple compression fractures bilateral hip and knees replacements Chronic pain secondary to all of the above with chronic opioid dependence Family History Unknown Social History Smoking Status: Never Smoker Drug Use: none Marital Status: Occupational Status: retired Immunizations History of Influenza Vaccine: Yes Influenza Vaccine Date: Feb 23, 2013 History of Tetanus Vaccine?: Unknown Tetanus Immunization Date: Mar 23, 2009 History of Pneumococcal: Yes Pneumococcal Date: Feb 21, 2011 History of Hepatitis B Vaccine: Unknown Multi-Drug Resistant Organisms History of MDRO: No Allergies Coded Allergies: Aspirin (Verified Allergy, Unknown, Hives, 05/15/17) Celecoxib (Verified Allergy, Unknown, 05/15/17) Sulfa Antibiotics (Verified Allergy, Unknown, Unknown rxn, 05/15/17) Oxycodone (Verified Adverse Reaction, Mild, "GETS NERVOUS", 05/15/17) Home Medications Scheduled Apixaban (Eliquis), 5 MG PO BID Calcium Carbonate-Vitamin D (Calcium + D3 600-200 mg-Unit), 1 TAB PO DAILY Clonazepam (Klonopin), 0.5 MG PO HS Duloxetine Hcl (Cymbalta), 30 MG PO DAILY Fentanyl (Fentanyl), 1 PATCH q3days Folic Acid (Folvite), 1 TAB PO DAILY Home O2 Therapy (Oxygen), 2 LITERS NA HS Methotrexate (Methotrexate), 10 MG PO WK Metoprolol Succ (Toprol Xl) (Toprol-Xl), 25 MG PO QPM Metoprolol Succ (Toprol Xl) (Toprol-Xl), 50 MG PO QAM Pantoprazole (Protonix), 40 MG PO DAILY Pramipexole Dihydrochloride (Mirapex), 0.125 MG PO HS Pravastatin (Pravachol ), 10 MG PO HS Prednisone (Prednisone), 5 MG PO BID Quetiapine Fumarate (Seroquel), 50 MG PO HS Scheduled PRN Hydromorphone Hcl (Dilaudid), 1 TAB PO QID PRN for Pain Lidocaine (Lidocaine), 5 % EXT DAILY PRN for Pain Miscellaneous Medications Adalimumab (Humira) Senna (Senokot), 1 TAB PO Review of Systems Constitutional: + weakness, + fatigue, No fever, No chills, No sweats, No weight loss, No problem reported Eyes: + worsening of vision, No eye pain, No redness, No discharge, No diplopia , No problem reported ENT: No hearing loss, No unusual epistaxis, No nasal symptoms, No sore throat, No tinnitus, No dental problems, No trouble swallowing, No problem reported Respiratory: No cough, No sputum, No wheezing, No shortness of breath, No dyspnea on exertion, No dyspnea at rest, No hemoptysis, No problem reported Cardiovascular: No chest pain, No orthopnea, No PND, No edema, No claudication , No palpitations, No problem reported Abdomen: + pain, No nausea, No vomiting, No diarrhea, No constipation, No GI bleeding, No problem reported Musculoskeletal: + joint pain, + muscle pain, No swelling, No calf pain, No problem reported Genitourinary - Female: No dysuria, No urinary frequency, No urinary urgency, No urinary incontinence, No urinary retention, No hematuria, No dysmenorrhea, No menorrhagia, No metrorrhagia, No rash, No vaginal bleeding, No vaginal discharge, No vaginal itching, No vulvodynia, No , No problem reported Neurologic: + problem reported (confusion), No memory loss, No paralysis, No weakness, No numbness/tingling, No vertigo, No balance problems Psychiatric: No depression symptoms, No anhedonism, No anxiety, No insomnia, No substance abuse, No problem reported Endocrine: No fatigue, No excessive thirst, No excessive urination, No problem reported Hematologic / Lymphatic: No abnormal bleeding/bruising, No clotting problems, No swollen lymph nodes, No night sweats, No problem reported Integumentary: No rash, No itch, No new/changing skin lesions, No color change , No bleeding, No problem reported Allergic / Immunologic: No environmental allergies, No seasonal allergies, No pet sensitivities, No food allergies, No hives, No frequent infections, No poor healing, No prolonged convalescence, No problem reported Physical Exam Vital Signs Date Time Temp Pulse Resp B/P (MAP) Pulse Ox O2 Delivery O2 Flow Rate FiO2 05/15/17 10:31 80 13 125/79 96 Nasal Cannula 2.0 05/15/17 10:01 78 15 122/86 96 Nasal Cannula 2.0 05/15/17 09:30 88 18 128/84 94 Nasal Cannula 2.0 05/15/17 09:00 90 13 128/84 95 Nasal Cannula 2.0 05/15/17 08:38 103 16 127/81 95 Nasal Cannula 2.0 05/15/17 08:27 89 Room Air 05/15/17 08:14 102 05/15/17 08:02 36.7 107 17 141/89 91 Room Air General Appearance: + mild distress, + thin Head: normocephalic Eyes: normal inspection, EOMI, + pertinent finding (visual acuity is finger counting on left eye which appears to be close to her baseline as per patient) ENT: normal ENT inspection, hearing grossly normal Neck: supple, thyroid normal, no JVD Respiratory/Chest: chest non-tender, lungs clear, normal breath sounds, no respiratory distress, no accessory muscle use Cardiovascular: regular rate, rhythm, no edema, no gallop, normal peripheral pulses, + systolic murmur Abdomen/GI: normal bowel sounds, soft, no organomegaly, no pulsatile mass, + tenderness (tenderness and epigastric area without any guarding or rebound) Back: normal inspection, no CVA tenderness Extremities/Musculoskelatal: + pertinent finding (deformity in hands and feet from rheumatoid arthritis) Neurologic/Psych: power checker II-XII nml as tested, no motor/sensory deficits, alert, normal mood/affect, oriented x 3, + pertinent finding (moves all extremities sensation intact cranial nerves II-12 appear to be intact except for right eye blindness) Skin: normal color, warm/dry, no rash, + pertinent finding (small ulcer on her right shoulder from dermatologic excision of a nevus) Diagnostics Laboratory Results Results Past 24 Hours Test 05/15/17 08:25 05/15/17 08:40 Range/Units White Blood Count 3.55 4.8-10.8 K/uL Red Blood Count 3.87 4.2-5.4 M/uL Hemoglobin 12.7 12.0-16.0 g/dL Hematocrit 39.3 37-47 % Mean Corpuscular Volume 101.6 80-100 fL Mean Corpuscular Hemoglobin 32.8 25-34 pg Mean Corpuscular Hemoglobin Concent 32.3 32-36 g/dl Platelet Count 98 130-400 K/uL Mean Platelet Volume 9.5 7.4-10.4 fL Neutrophils (%) (Auto) 55.0 % Lymphocytes (%) (Auto) 31.8 % Monocytes (%) (Auto) 9.6 % Eosinophils (%) (Auto) 2.5 % Basophils (%) (Auto) 0.3 % Neutrophils # (Auto) 1.95 1.4-6.5 K/uL Lymphocytes # (Auto) 1.13 1.2-3.4 K/uL Monocytes # (Auto) 0.34 0.11-0.59 K/uL Eosinophils # (Auto) 0.09 0-0.5 K/uL Basophils # (Auto) 0.01 0-0.2 K/uL RDW Standard Deviation 53.7 36.4-46.3 fL RDW Coefficient of Variation 14.8 11.5-14.5 % Immature Granulocyte % (Auto) 0.8 % Immature Granulocyte # (Auto) 0.03 0.00-0.02 K/uL Platelet Estimate DECREASED Prothrombin Time 10.3 9.0-12.0 SECONDS Prothromb Time International Ratio 1.0 0.9-1.1 Activated Partial Thromboplast Time 24.1 21.0-31.0 SECONDS Partial Thromboplastin Ratio 0.9 Sodium Level 137 136-145 mmol/L Potassium Level 4.1 3.5-5.1 mmol/L Chloride Level 101 98-107 mmol/L Carbon Dioxide Level 30 21-32 mmol/L Anion Gap 7.0 3-11 mmol/L Blood Urea Nitrogen 18 7-18 mg/dl Creatinine 0.78 0.60-1.20 mg/dl Est Creatinine Clear Calc Drug Dose 49.2 ml/min Estimated GFR () 84.4 Estimated GFR (Non- 72.8 BUN/Creatinine Ratio 22.3 10-20 Random Glucose 129 70-99 mg/dl Calcium Level 9.1 8.5-10.1 mg/dl Magnesium Level 2.2 1.8-2.4 mg/dl Total Creatine Kinase 30 26-192 U/L Creatine Kinase MB 1.2 0.5-3.6 ng/ml Creatine Kinase MB Ratio 4.0 0-3.0 Troponin I < 0.015 0-0.045 ng/ml Bedside Glucose 120 70-90 mg/dl Impression Assessment and Plan 77 years old female presented to the ED with gradual onset confusion started 1 week ago and reach its peak today accompanied by inability to formulate words which can represent expressive aphasia or confusion from metabolic encephalopathy. Presented to the emergency department accompanied by her who brought her when she was unable to express herself this morning and was lost in the house trying to find the bathroom. Improved quickly after hydration and 1 dose of antibiotic. Urine analysis suspicious for UTI. 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, and partial blindness of left eye chronic back pain with multiple compression fractures bilateral hip and knees replacements Chronic pain secondary to all of the above with chronic opioid dependence Right shoulder ulcer status post excision of a mole, does not seem to be infected Plan Admit patient to telemetry Patient has 75 g fentanyl patch that was removed, also her Dilaudid dose was increased to 2 mg 4 times a day We'll keep Dilaudid when necessary but decrease fentanyl patch to 25 g a day for now Continue IV fluid hydration Giving her immunocompromise status, lack of fever and lack of leukocytosis cannot be reliable, will order blood cultures, urine cultures, will continue treatment with ceftriaxone, will add vancomycin until cultures results come back Patient has allergy to aspirin, and appropriately coagulated with Eliquis, CT head showed no bleed, and you CVA or TIA is low on the list but definitely if she had any recurrence of her symptoms will obtain MRI of the head. Meanwhile will order a noninvasive carotid duplex rule out any critical stenosis that can be missed in the interim of suspected UTI that can be as simple as incidental bacteriuria of elderly We'll continue her rheumatoid arthritis therapy, as her current vitals are stable, will monitor her closely and will hold methotrexate at the earliest sign off decompensation At this point patient does not need stress dose steroids but again on the earliest sign of hypotension, large dose of steroids should be administered immediately On exam patient did have some epigastric tenderness, will make sure she is on antihistamine or PPI Will obtain ultrasound abdomen to investigate her tenderness and to rule out any underlying obstructive uropathy that might add another layer of complexity to her UTI We'll continue patient's home medications No need for DVT as she is on Eliquis Continue supportive care When patient improves, she will need physical and occupational therapy evaluation Will use Bicitracin cream on her right shoulder ulcer Note Total Time: Critical Care 30 - 74 minutes
[2017-05-15] MEDS ORDERED: LIDODERM (LIDOCAINE) PATCH 5% TD PRN (11:15)
[2017-05-15] MEDS ORDERED: POLYETHYLENE (MIRALAX) 17 GM PACK PO PRN (11:15)
[2017-05-15] MEDS ORDERED: HYDROmorphone HCL 2 MG TAB PO PRN (11:15)
[2017-05-15] MEDS ORDERED: MAGNESIUM HYDROXIDE SUSP 30 ML UDC PO PRN (11:15)
[2017-05-15] MEDS ORDERED: ZOLPIDEM TARTRATE 5 MG TAB PO PRN (11:15)
--- NOTE | 2017-05-15 12:05 | DIAGNOSTIC IMAGING REPORT ---
CHEST ONE VIEW PORTABLE CLINICAL HISTORY: Shortness of breath. Stroke. COMPARISON STUDY: 09/18/2016 FINDINGS: There are postsurgical changes of a midline sternotomy and aortic valve replacement. The heart is borderline enlarged. There is chronic interstitial thickening. There is no lobar consolidation. There is no overt failure. There are no pleural effusions. There are postsurgical changes of a right shoulder arthroplasty. There is conventional radiographic evidence of left rotator cuff tear/degeneration.[ IMPRESSION: Chronic interstitial thickening unchanged from the prior study. No acute findings. Electronically signed by: Sam Lopes M.D. 05/15/2017 12:04 PM Dictated Date/Time: 05/15/2017 12:03 PM
--- NOTE | 2017-05-15 12:34 | EMERGENCY ROOM VISIT NOTE ---
ED Visit Note First contact with patient: 08:08 Chief Complaint: Confusion. History of Present Illness: Ms. Cedeño is a 77-year-old white female who ambulates into the ED accompanied by her complaining of confusion and visual changes. 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 reports that over the last week his has become more confused. When I asked him to specify her confusion he reports she has difficulty finding the right words to communicate how she is feeling or what she wants. He reports physically she has been her normal self. He goes on to report this morning she went into the closet in stead of to the bathroom to urinate and her inability to express herself normally seemed to worsen; this occurred approximately one hour ago. He reports since that time her symptoms have been constant. He has not identified any aggravating or alleviating factors related to the symptoms. He has not given her her normal morning medications. In relationship to her eyesight he could not explain and neither could she explain how it worsened. She denies headache, dizziness, hearing changes, difficulty swallowing, difficulty ambulating, extremity weakness/numbness, chest pain, shortness of breath, decreased appetite, nausea, vomiting, urinary symptoms, hematuria, diarrhea, joint pain. Review of Systems: As noted above in history of present illness. All body systems were reviewed and found to be negative as noted above. Past Medical History: As previously noted and and rheumatoid arthritis, aortic valve replacement, osteoporosis, chronic diastolic congestive heart failure, left bundle branch block, osteoporosis, chronic back pain, bilateral hip and knee replacements Current Medications: Medications Dose Route/Sig Max Daily Dose Days Date Category Dose Instructions Senokot (Senna) 8.6 Mg Tab 1 Tab PO 05/15/17 Reported Protonix (Pantoprazole Sodium) 40 Mg Tab 40 Mg PO DAILY 05/15/17 Reported Fentanyl 75 Mcg Tdsy 1 Patch Q3DAYS 05/15/17 Reported Dilaudid (Hydromorphone Hcl) 2 Mg Tab 1 Tab PO QID PRN 30 05/15/17 Reported Lidocaine 1 Patch Tdsy 5 % EXT DAILY PRN 30 09/06/16 Rx Cymbalta (Duloxetine Hcl) 30 Mg Cap 30 Mg PO DAILY 09/05/16 Reported Calcium + D3 600-200 mg-Unit (Calcium Carbonate-Vitamin D) 1 Tab Tab 1 Tab PO DAILY 09/05/16 Reported Prednisone 5 Mg Tab 5 Mg PO BID 07/24/16 Reported Klonopin (Clonazepam) 0.5 Mg Tab 0.5 Mg PO HS 07/24/16 Reported Folvite (Folic Acid) 1 Mg Tab 1 Tab PO DAILY 90 07/24/16 Reported Humira (Adalimumab) 20 Mg/0.4 Ml Kit 07/24/16 Reported TAKES EVERY OTHER FRIDAY. Methotrexate 2.5 Mg Tab 10 Mg PO WK 07/24/16 Reported TAKES ON TUESDAYS. Eliquis (Apixaban) 5 Mg Tab 5 Mg PO BID 01/02/16 Reported Toprol-Xl (Metoprolol Succinate) 50 Mg Tabcr 50 Mg PO QAM 01/02/16 Reported Oxygen Gas 2 Liters NA HS 12/27/13 Reported Mirapex (Pramipexole Dihydrochloride) 0.125 Mg Tab 0.125 Mg PO HS 03/03/13 Reported Pravachol (Pravastatin Sodium) 20 Mg Tab 10 Mg PO HS 12/03/11 Reported Toprol-Xl (Metoprolol Succinate) 25 Mg Tabcr 25 Mg PO QPM 02/26/10 Reported Seroquel (Quetiapine Fumarate) 50 Mg Tab 50 Mg PO HS 02/22/10 Reported Allergies to Medications: Aspirin, oxycodone, sulfa, celecoxib. Social History: Patient is not employed; she lives with her and feels safe in her home environment; she denies tobacco use. Physical Examination: Vital Signs: Date Time Temp Pulse Resp B/P (MAP) Pulse Ox O2 Delivery O2 Flow Rate FiO2 05/15/17 11:49 100 20 121/72 96 Nasal Cannula 2.0 05/15/17 11:36 82 05/15/17 10:49 36.7 80 13 125/79 Nasal Cannula 2.0 05/15/17 10:31 80 13 125/79 96 Nasal Cannula 2.0 05/15/17 10:01 78 15 122/86 96 Nasal Cannula 2.0 05/15/17 09:30 88 18 128/84 94 Nasal Cannula 2.0 05/15/17 09:00 90 13 128/84 95 Nasal Cannula 2.0 05/15/17 08:38 103 16 127/81 95 Nasal Cannula 2.0 05/15/17 08:27 89 Room Air 05/15/17 08:14 102 05/15/17 08:02 36.7 107 17 141/89 91 Room Air GENERAL: 77-year-old female in mild to moderate distress due to symptoms, chronically ill-appearing, afebrile and hemodynamically stable. NEUROLOGICAL: Awake, alert and oriented to person only. Cranial nerves II through XII grossly intact. Unable to express the words she is thinking of. No facial droop. No slurred speech. No facial droop. No focal motor facial weakness.Good hand eye coordination. SKIN: Warm, dry and pink. No soft tissue eruptions or trauma noted. HEENT: Atraumatic and normocephalic. PERRLA. EOMI without nystagmus. Able to count fingers with her left eye only. Sclera white and conjunctiva pink. No drainage from naris. Oral cavity moist and pink. Airway is patent. Pharynx is nonerythematous or edematous. Speech normal and clear. No lymphadenopathy. Trachea midline. No jugular venous distention. No carotid bruits. BACK: No tenderness over the bony spine. No CVA tenderness. THORAX: Lungs sounds are clear to auscultation and equal bilaterally with symmetrical chest wall. No wheezing, rales or rhonchi. No crepitus, tenderness , subcutaneous air or deformities noted. HEART: Regular rate and rhythm. No gallops, rubs or murmurs are appreciated. ABDOMEN: Flat, soft and nontender. Positive bowel sounds in all quadrants. No guarding, rigidity or organomegaly. EXTREMITIES: Moves all extremities well on command and with purpose. All distal neurovascular statuses are intact and equal bilaterally. No calf tenderness or cords. ED Course: Patient is assessed as noted above. Patient's medication list was reviewed. Laboratory Testing: Test 05/15/17 08:25 05/15/17 08:40 Range/Units White Blood Count 3.55 4.8-10.8 K/uL Red Blood Count 3.87 4.2-5.4 M/uL Hemoglobin 12.7 12.0-16.0 g/dL Hematocrit 39.3 37-47 % Mean Corpuscular Volume 101.6 80-100 fL Mean Corpuscular Hemoglobin 32.8 25-34 pg Mean Corpuscular Hemoglobin Concent 32.3 32-36 g/dl Platelet Count 98 130-400 K/uL Mean Platelet Volume 9.5 7.4-10.4 fL Neutrophils (%) (Auto) 55.0 % Lymphocytes (%) (Auto) 31.8 % Monocytes (%) (Auto) 9.6 % Eosinophils (%) (Auto) 2.5 % Basophils (%) (Auto) 0.3 % Neutrophils # (Auto) 1.95 1.4-6.5 K/uL Lymphocytes # (Auto) 1.13 1.2-3.4 K/uL Monocytes # (Auto) 0.34 0.11-0.59 K/uL Eosinophils # (Auto) 0.09 0-0.5 K/uL Basophils # (Auto) 0.01 0-0.2 K/uL RDW Standard Deviation 53.7 36.4-46.3 fL RDW Coefficient of Variation 14.8 11.5-14.5 % Immature Granulocyte % (Auto) 0.8 % Immature Granulocyte # (Auto) 0.03 0.00-0.02 K/uL Platelet Estimate DECREASED Prothrombin Time 10.3 9.0-12.0 SECONDS Prothromb Time International Ratio 1.0 0.9-1.1 Activated Partial Thromboplast Time 24.1 21.0-31.0 SECONDS Partial Thromboplastin Ratio 0.9 Sodium Level 137 136-145 mmol/L Potassium Level 4.1 3.5-5.1 mmol/L Chloride Level 101 98-107 mmol/L Carbon Dioxide Level 30 21-32 mmol/L Anion Gap 7.0 3-11 mmol/L Blood Urea Nitrogen 18 7-18 mg/dl Creatinine 0.78 0.60-1.20 mg/dl Est Creatinine Clear Calc Drug Dose 49.2 ml/min Estimated GFR () 84.4 Estimated GFR (Non- 72.8 BUN/Creatinine Ratio 22.3 10-20 Random Glucose 129 70-99 mg/dl Calcium Level 9.1 8.5-10.1 mg/dl Magnesium Level 2.2 1.8-2.4 mg/dl Total Creatine Kinase 30 26-192 U/L Creatine Kinase MB 1.2 0.5-3.6 ng/ml Creatine Kinase MB Ratio 4.0 0-3.0 Troponin I < 0.015 0-0.045 ng/ml Bedside Glucose 120 70-90 mg/dl Urine culture pending. EKG: Shows normal sinus rhythm with a ventricular rate of 96 bpm. Left bundle- branch block. No ischemic changes were noted. A previous from December 2015 was reviewed and shows more prominent T-wave inversion in the lateral leads. Chest X-Ray: Were read by myself and the radiologist showing chronic interstitial thickening unchanged from prior study no acute infiltrates, effusions or pneumothorax. Head CT: Was reviewed by myself and shows chronic changes with no acute intracranial abnormalities. Patient was hydrated with normal saline and she received 1 g of ceftriaxone IV for antibiotic coverage against a possible urinary tract infection. Patient was placed on nasal kind oxygen for her hypoxia. Patient was reassessed multiple times during her stay in the emergency department. Patient's case was reviewed with Dr. Burnette; he independently assessed the patient and we agreed on diagnostic approach, treatment, disposition and plan. Patient's case was consulted with case management and the [facility] hospitalist, Dr. Robin Peña; for medical observation/admission. Patient and were educated about today's findings. Clinical Impression: Altered levels of consciousness. Expressive aphasia. Decision-Making: Initially my differential diagnosis I considered intracranial bleed, stroke, urinary tract infection, sepsis and other causes. Disposition and Plan: Patient be brought in the hospital for medical observation /admission; please see hospitalist notes for final disposition and plan.
[2017-05-15] MEDS ORDERED: VANCOMYCIN CONSULT ACTIVE PRN (13:15)
--- NOTE | 2017-05-15 13:16 | DIAGNOSTIC IMAGING REPORT ---
CAROTID DOPPLER NECK ART CLINICAL HISTORY: 77 years-old Female presenting with TIA. TECHNIQUE: Real-time grayscale and color and spectral Doppler ultrasound imaging of the bilateral carotid arteries was performed. NASCET criteria was used in evaluating this study. COMPARISON: 11/03/2015. FINDINGS: Right: Common carotid: Atherosclerosis. Peak systolic velocity 52 cm/s. Internal carotid artery: Atherosclerosis of the proximal ICA. Peak systolic velocity 56 cm/s. Systolic ratio: 1.1. External carotid artery: Atherosclerosis. Peak systolic velocity 47 cm/s. Left: Common carotid: Atherosclerosis. Peak systolic velocity 47 cm/s. Internal carotid artery: Atherosclerosis of the proximal ICA. Peak systolic velocity 64 cm/s. Systolic ratio: 1.4. External carotid artery: Atherosclerosis. Peak systolic velocity 38 cm/s. Bilateral antegrade flow within the vertebral arteries. Reference ranges: Stenosis measurements are compared to reference velocity parameters. ICA peak systolic velocity (PSV) < 125 cm/s normal or indicating < 50% stenosis; ICA PSV 125-230 cm/s equivalent to 50-69% stenosis; ICA PSV > 230 cm/s equivalent to greater than or equal to 70% stenosis. ICA PSV to common carotid artery PSV ratio < 2 normal or < 50% stenosis; 2-4 equates to 50-69% stenosis, > 4 equates to greater than or equal to 70% stenosis. Normal ICA end-diastolic velocity less than 40. Blood pressure Not performed. IMPRESSION: Atherosclerosis without hemodynamically significant stenosis seen within the carotid arteries. Electronically signed by: Chase Rocha M.D. 05/15/2017 1:14 PM Dictated Date/Time: 05/15/2017 1:13 PM
--- NOTE | 2017-05-15 13:18 | DIAGNOSTIC IMAGING REPORT ---
ABDOMEN COMPLETE (US) CLINICAL HISTORY: Epigastric pain. Urinary tract infection. COMPARISON STUDY: CT of the abdomen and pelvis March 23, 2011. FINDINGS: Liver is sonographically normal. There is no biliary ductal dilatation. There are are multiple gallstones within the gallbladder. A small amount of gallbladder sludge is noted. There is no gallbladder wall thickening. The pancreatic body is normal by sonography. Head and tail are partially obscured. Size of the spleen is at the upper limits of normal. A 1.2 cm echogenic splenic lesion is unchanged since CT of March 23, 2011. This is benign. Abdominal aorta is partially obscured but visualized portions are normal in caliber. The right kidney measures 9.1 x 4.3 x 4.8 cm and the left measures 9 x 4.1 x 4.2 cm. There is a 1.5 cm left renal cyst. There is no hydronephrosis. Moderate renal cortical thinning is noted. Renal echogenicity is increased. IMPRESSION: 1. Cholelithiasis. No gallbladder wall thickening. 2. No biliary ductal dilatation. 3. No hydronephrosis. 4. Moderate renal cortical thinning. Electronically signed by: Flavio Minaya M.D. 05/15/2017 1:17 PM Dictated Date/Time: 05/15/2017 1:14 PM
[2017-05-15 13:36] VITALS: BP 168/84; PULSE 80; TEMP 37.1; O2SAT 92
[2017-05-15] MEDS: SODIUM CHLORIDE 0.9% 1000ML 1,000 ML IV SCH (13:57)
[2017-05-15] MEDS ORDERED: FENTANYL PATCH REMOVE & WASTE SCH (13:59)
[2017-05-15] MEDS ORDERED: FENTANYL 25 MCG/HR TDSY TD SCH (14:00)
--- NOTE | 2017-05-15 14:01 | Pharmacy Progress Note ---
Pharmacy Abx Initial Consult Date of Service May 15, 2017. Pharmacy Dosing Scope Date of Consult: 05/15/17 Consultation requested by: Dr. Velazco Pharmacy is consulted to initiate Vancomycin IV dosing therapy, order appropriate labs and adjust drug dose/frequency. Subjective The patient is a 77 year old female admitted on May 15, 2017 at 11:22. Objective Height (Feet): 5 Height (Inches): 3.00 Weight (Kilograms): 62.100 Vital Signs (Past 12Hrs) Vital Signs Past 12 Hours Date Time Temp Pulse Resp B/P (MAP) Pulse Ox O2 Delivery O2 Flow Rate FiO2 05/15/17 11:49 100 20 121/72 96 Nasal Cannula 2.0 05/15/17 11:36 82 05/15/17 10:49 36.7 80 13 125/79 Nasal Cannula 2.0 05/15/17 10:31 80 13 125/79 96 Nasal Cannula 2.0 05/15/17 10:01 78 15 122/86 96 Nasal Cannula 2.0 05/15/17 09:30 88 18 128/84 94 Nasal Cannula 2.0 05/15/17 09:00 90 13 128/84 95 Nasal Cannula 2.0 05/15/17 08:38 103 16 127/81 95 Nasal Cannula 2.0 05/15/17 08:27 89 Room Air 05/15/17 08:14 102 05/15/17 08:02 36.7 107 17 141/89 91 Room Air Lab Results (24Hrs) Laboratory Tests (24 Hours) Test 05/15/17 08:25 White Blood Count 3.55 K/uL (4.8-10.8) L Red Blood Count 3.87 M/uL (4.2-5.4) L Hemoglobin 12.7 g/dL (12.0-16.0) Hematocrit 39.3 % (37-47) Mean Corpuscular Volume 101.6 fL (80-100) H Mean Corpuscular Hemoglobin 32.8 pg (25-34) Mean Corpuscular Hemoglobin Concent 32.3 g/dl (32-36) Platelet Count 98 K/uL (130-400) L Mean Platelet Volume 9.5 fL (7.4-10.4) Neutrophils (%) (Auto) 55.0 % Lymphocytes (%) (Auto) 31.8 % Monocytes (%) (Auto) 9.6 % Eosinophils (%) (Auto) 2.5 % Basophils (%) (Auto) 0.3 % Neutrophils # (Auto) 1.95 K/uL (1.4-6.5) Lymphocytes # (Auto) 1.13 K/uL (1.2-3.4) L Monocytes # (Auto) 0.34 K/uL (0.11-0.59) Eosinophils # (Auto) 0.09 K/uL (0-0.5) Basophils # (Auto) 0.01 K/uL (0-0.2) Procalcitonin < 0.05 ng/ml (0-0.5) Total Creatine Kinase 30 U/L (26-192) Micro Results Date/Time Source Procedure Growth Status 05/15/17 11:11 Blood Blood Culture Pending Ordered 05/15/17 11:11 Blood Blood Culture Pending Ordered 05/15/17 13:40 Urine , Clean Catch Urine Culture Pending Received Risk Factors for Resistance * Immunocompromised d/t RA treatment; prednisone, humira, and methotrexate Assessment & Plan Assessment 77 year old female with suspected complicated UTI * h/o of CVA, atrial fibrillation and aortic valve replacement Plan Vancomycin + Ceftriaxone for treatment of cUTI. Vancomycin IV * Loading dose: 1500 mg (24 mg/kg) * Maintenance dose: 1250 mg IV (20 mg/kg) every 18 hours * Goal trough level ~15 mcg/mL * Trough level ordered for 05/18/17 Ceftriaxone - not a pharmacy consult Pharmacy will continue to follow and will adjust dose/frequency as necessary. Thank you.
[2017-05-15] MEDS ORDERED: VANCOMYCIN INJ 1,500 MG in SODIUM CHLORIDE 0.9% 500ML 500 ML IV ONE (14:30)
[2017-05-15] MEDS ORDERED: PNEUMOCOCCAL POLYSACCHARIDES 25 MCG/0.5 ML VIAL/SYR IM. ONE (15:00)
[2017-05-15] MEDS ORDERED: PNEUMOCOCCAL ADMINISTRATION CHARGE ONE (15:00)
[2017-05-15] MEDS: CHECK FENTANYL PATCH PLACEMENT SCH ×2 (16:00→23:32)
[2017-05-15] MEDS ORDERED: INFLUENZA VIRUS QUAD VACCINE 0.5 ML SYR IM. ONE (16:00)
[2017-05-15] MEDS ORDERED: INFLUENZA ADMINISTRATION CHARGE ONE (16:00)
[2017-05-15] MEDS: LACTOBACILLUS ACIDOPHILUS 1 GM PACK PO SCH (16:53)
[2017-05-15] MEDS: ACETAMINOPHEN 325 MG TAB PO PRN (17:03)
[2017-05-15 18:59] VITALS: BP 137/72; PULSE 87; TEMP 36.7; O2SAT 92
[2017-05-15] MEDS: BACITRACIN OINT 15 GM TUBE EXT SCH (21:23)
[2017-05-15] MEDS: CLONAZEPAM 0.5 MG TAB PO SCH (21:26)
[2017-05-15] MEDS: PRAMIPEXOLE DIHYDROCHLORIDE 0.25MG TAB PO SCH (21:28)
[2017-05-15] MEDS: QUETIAPINE FUMARATE 25 MG TAB PO SCH (21:29)
[2017-05-15] MEDS: PRAVASTATIN SOD 10 MG TAB PO SCH (21:29)
[2017-05-15 21:30] VITALS: BP 118/74; PULSE 86
[2017-05-15] MEDS: APIXABAN 2.5 MG TAB PO SCH (21:30)
[2017-05-15] MEDS: METOPROLOL SUCC 25MG EXT REL TAB PO SCH (21:33)
[2017-05-15 23:48] VITALS: BP 104/68; PULSE 86; TEMP 36.8; O2SAT 96
[2017-05-16] VITALS (9 sets, daily range): BP systolic 104–184; BP diastolic 66–135; PULSE 62–128; TEMP 36.8–37.4; O2SAT 91–97
[2017-05-16] MEDS: SODIUM CHLORIDE 0.9% 1000ML 1,000 ML IV SCH ×2 (03:42→18:24)
[2017-05-16] MEDS: ACETAMINOPHEN 325 MG TAB PO PRN ×2 (05:56→15:43)
[2017-05-16] MEDS ORDERED: VANCOMYCIN INJ 1,250 MG in SODIUM CHLORIDE 0.9% 250ML 250 ML IV SCH (06:00)
[2017-05-16 06:50] LABS: HEMATOCRIT 36.9 % (37-47); HEMOGLOBIN 11.9 g/dL (12.0-16.0); MEAN CELL VOLUME 102.2 fL (80-100); MEAN CORPUSCULAR HGB CONC 32.2 g/dl (32-36); MEAN PLATELET VOLUME 9.6 fL (7.4-10.4); PLATELET COUNT 90 K/uL (130-400); RED CELL DISTRIBUTION WIDTH CV 14.7 % (11.5-14.5); RED CELL DISTRIBUTION WIDTH SD 54.3 fL (36.4-46.3); WHITE BLOOD COUNT 3.18 K/uL (4.8-10.8)
[2017-05-16 07:09] LABS: BASO % 0.3 %; BASO ABS # 0.01 K/uL (0-0.2); EOS % 3.5 %; EOS ABS # 0.11 K/uL (0-0.5); IG# 0.04 K/uL (0.00-0.02); LYMPH % 20.4 %; LYMPH ABS # 0.65 K/uL (1.2-3.4); MONO % 10.4 %; MONO ABS # 0.33 K/uL (0.11-0.59); NEUT % 64.1 %; NEUT ABS # 2.04 K/uL (1.4-6.5)
[2017-05-16 07:28] LABS: ALBUMIN 2.9 gm/dl (3.4-5.0); CALCIUM 8.3 mg/dl (8.5-10.1); CREATININE 0.62 mg/dl (0.60-1.20); POTASSIUM 3.9 mmol/L (3.5-5.1)
[2017-05-16 07:30] LABS: TOTAL PROTEIN 6.2 gm/dl (6.4-8.2)
[2017-05-16 07:31] LABS: PHOSPHORUS 2.2 mg/dl (2.5-4.9)
[2017-05-16] MEDS: LACTOBACILLUS ACIDOPHILUS 1 GM PACK PO SCH ×3 (07:33→18:07)
[2017-05-16] MEDS: METOPROLOL SUCC 50MG EXT REL TAB PO SCH (07:33)
[2017-05-16] MEDS: APIXABAN 2.5 MG TAB PO SCH ×2 (09:01→20:30)
[2017-05-16] MEDS: CALCIUM 600MG + VIT D 400 IU TAB PO SCH (09:02)
[2017-05-16] MEDS: PANTOprazole SOD 40 MG TAB PO SCH (09:02)
[2017-05-16] MEDS: SENNA 8.6 MG TAB PO SCH (09:02)
[2017-05-16] MEDS: CHECK FENTANYL PATCH PLACEMENT SCH ×2 (09:03→15:44)
[2017-05-16] MEDS: DULOXETINE (CYMBALTA) 30 MG CAP PO SCH (09:03)
[2017-05-16] MEDS: CEFTRIAXONE SOD INJ 1 GM in DEXTROSE 5% ADD-VANTAGE 50ML 50 ML IV SCH (09:04)
--- NOTE | 2017-05-16 09:45 | Clinical Documentation Query ---
CLINICAL DOCUMENTATION QUERY Dr. TY, In your clinical opinion is this patient being managed for: ( ) Possible Sepsis, POA ( ) Not Agree ( ) Other explanation of clinical findings (Please Explain) ( ) Unable to determine (Please Define) ( ) Need to Discuss The medical record reflects the following clinical findings, treatment, and risk factors. Clinical Indicators:77 yo female presenting with altered mental status and UTI. WBC 3.55, HR 107, O2 sat 89% on RA Treatment: IV fluids, IV vancomcyin, IV rocephin, blood and urine cx pending, tele monitoring, I/O, O2 support Risk Factors: immunocompromised on immunomodulator and steroid therapy for RA, UTI Please clarify and document your clinical opinion in the progress notes and discharge summary. Terms such as "probable", "suspected", "likely", "questionable", "possible", or "still to be ruled out" are acceptable. IF IN AGREEMENT, YOU MUST DOCUMENT ABOVE DIAGNOSTIC STATEMENT IN DAILY PROGRESS NOTES AND DISCHARGE SUMMARY. This document is not part of the patient's record. Thank You, Yaneth Barrera RN [phone]
--- NOTE | 2017-05-16 09:47 | Clinical Documentation Query ---
CLINICAL DOCUMENTATION QUERY Dr. ERICKSON, In your clinical opinion is this patient being managed for: ( ) Possible Sepsis, POA ( ) Not Agree ( ) Other explanation of clinical findings (Please Explain) ( ) Unable to determine (Please Define) ( ) Need to Discuss I was not involved in this patient's care. Please forward this inquiry to Dr. Bud Gee. Thank you ! -Hong Tolentino The medical record reflects the following clinical findings, treatment, and risk factors. Clinical Indicators:77 yo female presenting with altered mental status and UTI. WBC 3.55, HR 107, O2 sat 89% on RA Treatment: IV fluids, IV vancomcyin, IV rocephin, blood and urine cx pending, tele monitoring, I/O, O2 support Risk Factors: immunocompromised on immunomodulator and steroid therapy for RA, UTI Please clarify and document your clinical opinion in the progress notes and discharge summary. Terms such as "probable", "suspected", "likely", "questionable", "possible", or "still to be ruled out" are acceptable. IF IN AGREEMENT, YOU MUST DOCUMENT ABOVE DIAGNOSTIC STATEMENT IN DAILY PROGRESS NOTES AND DISCHARGE SUMMARY. This document is not part of the patient's record. Thank You, Yaneth Barrera, RN [phone]
[2017-05-16] MEDS ORDERED: ONDANSETRON INJ 2 MG/ML 2 ML VIAL IV SCH (12:45)
[2017-05-16] MEDS: BACITRACIN OINT 15 GM TUBE EXT SCH ×2 (13:16→20:24)
[2017-05-16] MEDS ORDERED: SUCRALFATE 1 GM/10 ML UDC PO PRN (18:45)
--- NOTE | 2017-05-16 19:05 | Hospitalist Progress Note ---
Hospitalist Progress Note Date of Service May 16, 2017. (Adriana Pearce PA-C) Subjective Pt evaluation today including: conversation w/ patient, conversation w/ family ( over the phone), physical exam, chart review, lab review, review of studies, review of inpatient medication list Patient seen and evaluated. No acute events overnight. Telemetry reviewed with sinus rhythm in 70s to 80s. Patient is alert and oriented at this time and speech is clear without difficulty finding her words. She feels that she is at baseline. Daughter and family friend at bedside stating that she appears to be her normal self. However patient states that she does not feel well and she is still having epigastric discomfort. She says that it's an upset stomach feeling and she is nauseous. Did utilize Zofran for relief. Verbalizes no other complaints at this time. She does report some stress as her daughter is currently undergoing surgery today for cancer at [facility]. She states, and confirmed by family, that her is in [place] with her daughter and will not be returning Friday. They do express concern about patient going home alone as they will not be somebody to watch her until he returns. 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) Respiratory: No cough, No shortness of breath Cardiovascular: No chest pain Abdomen: + pain (midepigastric), + nausea, No vomiting, No diarrhea, No constipation, No GI bleeding Musculoskeletal: No swelling, No calf pain Female : + urinary frequency, No dysuria Heme: No abnormal bleeding/bruising Skin: No rash (Adriana Pearce, KALEIGHC) Medications Current Inpatient Medications Medications (Trade) Dose Ordered Sig/Wero Route Start Time Stop Time Status Last Admin Dose Admin Sodium Chloride 1,000 ml @ 75 mls/hr [id number] IV 05/15/17 13:00 06/14/17 12:59 05/16/17 18:24 75 MLS/HR Acetaminophen (Tylenol Tab) 650 mg Q4H PRN PO 05/15/17 11:15 06/14/17 11:14 05/16/17 15:43 650 MG Magnesium Hydroxide (Milk Of Magnesia Susp) 30 ml Q12H PRN PO 05/15/17 11:15 06/14/17 11:14 Zolpidem Tartrate (Ambien Tab) 5 mg HSZ PRN PO 05/15/17 11:15 06/14/17 11:14 Polyethylene (Miralax Powder Packet) 17 gm DAILY PRN PO 05/15/17 11:15 06/14/17 11:14 Ceftriaxone Sodium 1 gm/ Dextrose 50 ml @ 100 mls/hr Q24H IV 05/16/17 10:00 05/25/17 09:59 05/16/17 09:04 100 MLS/HR Vancomycin HCl 1250 mg/Sodium Chloride 275 ml @ 125 mls/hr Q18H IV 05/16/17 06:00 05/25/17 13:59 05/16/17 05:56 125 MLS/HR Clonazepam (Klonopin Tab) 0.5 mg HS PO 05/15/17 21:00 06/14/17 20:59 05/15/17 21:26 0.5 MG Duloxetine HCl (Cymbalta Cap) 30 mg DAILY PO 05/16/17 09:00 06/15/17 08:59 05/16/17 09:03 30 MG Folic Acid (Folvite Tab) 1 mg DAILY PO 05/16/17 09:00 06/15/17 08:59 05/16/17 09:02 1 MG Hydromorphone HCl (Dilaudid Tab) 2 mg QID PRN PO 05/15/17 11:15 05/29/17 11:14 05/16/17 07:41 2 MG Lidocaine (Lidoderm Patch 5%) 1 patch DAILY PRN TD 05/15/17 11:15 06/14/17 11:14 Methotrexate (Methotrexate Tab) 10 mg Tu@0900 PO 05/20/17 09:00 06/19/17 08:59 Metoprolol Succinate (Toprol Xl Tab) 25 mg QPM PO 05/15/17 21:00 06/14/17 20:59 05/15/17 21:33 25 MG Metoprolol Succinate (Toprol Xl Tab) 50 mg QAM PO 05/16/17 09:00 06/15/17 08:59 05/16/17 07:33 50 MG Pantoprazole Sodium (Protonix Tab) 40 mg DAILY PO 05/16/17 09:00 06/15/17 08:59 05/16/17 09:02 40 MG Pramipexole Dihydrochloride (miraPEX TAB) 0.125 mg HS PO 05/15/17 21:00 06/14/17 20:59 05/15/17 21:28 0.125 MG Pravastatin Sodium (Pravachol Tab) 10 mg HS PO 05/15/17 21:00 06/14/17 20:59 05/15/17 21:29 10 MG Prednisone (PredniSONE TAB) 5 mg BID PO 05/15/17 21:00 06/14/17 20:59 05/16/17 09:02 5 MG Quetiapine Fumarate (seroQUEL TAB) 50 mg HS PO 05/15/17 21:00 06/14/17 20:59 05/15/17 21:29 50 MG Senna (Senokot Tab) 8.6 mg DAILY PO 05/16/17 09:00 06/15/17 08:59 05/16/17 09:02 8.6 MG Apixaban (Eliquis Tab) 5 mg BID PO 05/15/17 21:00 06/14/17 20:59 05/16/17 09:01 5 MG Calcium/Vitamin D (Caltrate Plus Tab) 1 tab DAILY PO 05/16/17 09:00 06/15/17 08:59 05/16/17 09:02 1 TAB Fentanyl (Duragesic Patch) 25 mcg Q3D@1400 TD 05/15/17 14:00 05/29/17 13:59 05/15/17 14:05 25 MCG Bacitracin (Bacitracin Oint) 1 appln BID EXT 05/15/17 21:00 06/14/17 20:59 05/16/17 13:16 1 APPLN Lactobacillus Acidophilus (Lactinex Granules Pack) 1 gm TIDM PO 05/15/17 17:00 06/14/17 17:59 05/16/17 07:33 1 GM Vancomycin HCl (Consult) 1 ea UD PRN N/A 05/15/17 13:15 06/14/17 13:14 Miscellaneous (Remove Lidoderm Patch) 1 ea DAILY@21 N/A 05/15/17 21:00 06/14/17 20:59 Miscellaneous (Fentanyl Patch Remove & Waste) 1 ea Q3D@1359 N/A 05/15/17 13:59 06/14/17 13:58 Miscellaneous Information (Check Fentanyl Patch Placement) 1 ea QS N/A 05/15/17 16:00 06/14/17 15:59 05/16/17 15:44 1 EA Ondansetron HCl (Zofran Inj) 4 mg Q6H PRN IV 05/16/17 12:30 06/15/17 12:29 (Adriana Pearce PA-C) Objective Vital Signs Date Time Temp Pulse Resp B/P (MAP) Pulse Ox O2 Delivery O2 Flow Rate FiO2 05/16/17 16:00 91 Nasal Cannula 2.0 05/16/17 15:49 36.9 81 18 150/85 (106) 91 Room Air 05/16/17 12:28 37.4 75 20 145/71 (95) 93 05/16/17 12:00 91 Nasal Cannula 2.0 05/16/17 08:00 Nasal Cannula 2.0 05/16/17 07:50 36.9 95 18 175/96 (122) 91 05/16/17 04:42 36.8 62 18 104/66 (79) 95 05/16/17 04:00 Nasal Cannula 2.0 05/16/17 00:00 Nasal Cannula 2.0 05/15/17 23:48 36.8 86 16 104/68 (80) 96 05/15/17 21:30 86 118/74 (89) 05/15/17 20:00 Room Air 05/15/17 18:59 36.7 87 16 137/72 (93) 92 Room Air (Adriana Perace PA-C) Physical Exam General Appearance: WD/WN, no apparent distress ENT: hearing grossly normal Neck: supple, no JVD, trachea midline Respiratory/Chest: lungs clear, normal breath sounds, no respiratory distress, no accessory muscle use Cardiovascular: regular rate, rhythm Abdomen: normal bowel sounds, non tender, soft Extremities: no pedal edema, no calf tenderness Neurologic/Psychiatric: alert, oriented x 3 Skin: normal color, warm/dry (Adriana Pearce PA-C) Laboratory Results Last 24 Hours Test 05/16/17 06:38 White Blood Count 3.18 K/uL Red Blood Count 3.61 M/uL Hemoglobin 11.9 g/dL Hematocrit 36.9 % Mean Corpuscular Volume 102.2 fL Mean Corpuscular Hemoglobin 33.0 pg Mean Corpuscular Hemoglobin Concent 32.2 g/dl Platelet Count 90 K/uL Mean Platelet Volume 9.6 fL Neutrophils (%) (Auto) 64.1 % Lymphocytes (%) (Auto) 20.4 % Monocytes (%) (Auto) 10.4 % Eosinophils (%) (Auto) 3.5 % Basophils (%) (Auto) 0.3 % Neutrophils # (Auto) 2.04 K/uL Lymphocytes # (Auto) 0.65 K/uL Monocytes # (Auto) 0.33 K/uL Eosinophils # (Auto) 0.11 K/uL Basophils # (Auto) 0.01 K/uL RDW Standard Deviation 54.3 fL RDW Coefficient of Variation 14.7 % Immature Granulocyte % (Auto) 1.3 % Immature Granulocyte # (Auto) 0.04 K/uL Sodium Level 141 mmol/L Potassium Level 3.9 mmol/L Chloride Level 108 mmol/L Carbon Dioxide Level 29 mmol/L Anion Gap 4.0 mmol/L Blood Urea Nitrogen 7 mg/dl Creatinine 0.62 mg/dl Est Creatinine Clear Calc Drug Dose 61.8 ml/min Estimated GFR () 100.1 Estimated GFR (Non- 86.4 BUN/Creatinine Ratio 10.6 Random Glucose 118 mg/dl Calcium Level 8.3 mg/dl Phosphorus Level 2.2 mg/dl Magnesium Level 2.0 mg/dl Total Bilirubin 0.6 mg/dl Aspartate Amino Transf (AST/SGOT) 21 U/L Alanine Aminotransferase (ALT/SGPT) 24 U/L Alkaline Phosphatase 46 U/L Total Protein 6.2 gm/dl Albumin 2.9 gm/dl Globulin 3.3 gm/dl Albumin/Globulin Ratio 0.9 (Adriana Pearce, PAAmandaC) Assessment and Plan 77 years old female presented to the ED with gradual onset confusion started 1 week ago and reach its peak today accompanied by inability to formulate words which can represent expressive aphasia or confusion from metabolic encephalopathy. Presented to the emergency department accompanied by her who brought her when she was unable to express herself this morning and was lost in the house trying to find the bathroom. Improved quickly after hydration and 1 dose of antibiotic. Urine analysis suspicious for UTI. 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: - Head CT without evidence of acute CVA - given improvement in mentation will not pursue MRI at this time, however if worsening mentation will add this on Possible Unintentional Opiate Overdose..Possible Benzo Effect?: - Fentanyl patch reduced from 75 mcg to 25 mcg and her Dilaudid was increased ( recently as outpatient) - states she was on reduced patches in the past with no relief of her chronic pain however states that no one has tried to increase her oral medications to supplement this - will continue to monitor for good pain control without oversedation - Continue Klonopin - unlikely that this would be the cause as she is on a relatively low dose - but given age and other medications this could've contributed - Lidocaine patch daily PRN Epigastric Discomfort - Nausea/Dyspepsia: - Given anticoagulation and steroids - possible gastritis - no noted melena/ hematochezia, hgb stable - possible ulcer? - Protonix 40 mg daily, Zofran PRN, and add Carafate PRN Severe RA - ImmunoSuppression - Methotrexate 10 mg weekly and prednisone 5 mg BID - Vitals have remained stable and no need for stress steroids at this time Paroxysmal Atrial Fibrillation: NSR Currently - Eliquis 5 mg BID and Toprol-XL 50 mg a.m. and 25 mg p.m. Chronic Diastolic Dysfunction/Aortic Valve Replacement/LBBB: DVT Prophylaxis: Eliquis Code Status: FULL RESUSCITATION Disposition: - PT/OT evaluations - Updated over the phone, who is currently in [place], his daughter currently underwent surgery for cancer at [facility] - will be returning to [place] on Friday and does express concern as they will not be anyone to watch the patient until he returns Continued [facility] stay due to: multiple IV medications needed Discharge planning: home (Adriana Pearce, JENNA) I performed a history and physical examination on the patient. I reviewed above note and agree with what is written. During my face to face interaction with the patient, I updated the patient on the plan and answered all of the patient's questions. My exam is below: General Appearance: WD/WN, no apparent distress Neck: supple, no JVD, trachea midline Respiratory/Chest: lungs clear, normal breath sounds, no respiratory distress, no accessory muscle use Cardiovascular: regular rate, rhythm, Abdomen: normal bowel sounds, non tender, soft Extremities: no pedal edema, no calf tenderness, Neurologic/Psychiatric: alert, oriented x 3 Skin: normal color, warm/dry (Bud Gee M.D.)
[2017-05-16] MEDS ORDERED: ONDANSETRON INJ 2 MG/ML 2 ML VIAL IV STA (20:14)
[2017-05-16] MEDS: PRAMIPEXOLE DIHYDROCHLORIDE 0.25MG TAB PO SCH (20:28)
[2017-05-16] MEDS: QUETIAPINE FUMARATE 25 MG TAB PO SCH (20:33)
[2017-05-16] MEDS: METOPROLOL SUCC 25MG EXT REL TAB PO SCH (20:38)
[2017-05-16] MEDS: CLONAZEPAM 0.5 MG TAB PO SCH (20:44)
[2017-05-16] MEDS: PRAVASTATIN SOD 10 MG TAB PO SCH (20:46)
[2017-05-16] MEDS ORDERED: LORAZEPAM 2 MG TAB PO STA (22:42)
[2017-05-16] MEDS ORDERED: ROPINIROLE HCL 0.25 MG TAB PO ONE (22:45)
[2017-05-17] MEDS ORDERED: OLANZAPINE ZYDIS 5 MG ORALLY DIS. TAB PO STA (00:01)
[2017-05-17] MEDS ORDERED: LORAZEPAM 1 MG TAB PO STA (00:01)
[2017-05-17] MEDS: CHECK FENTANYL PATCH PLACEMENT SCH ×2 (00:07→08:00)
[2017-05-17 04:25] VITALS: BP 198/75; PULSE 98; TEMP 37; O2SAT 95
[2017-05-17 07:23] VITALS: BP 173/92; PULSE 119; TEMP 36.8; O2SAT 93
[2017-05-17] MEDS: SODIUM CHLORIDE 0.9% 1000ML 1,000 ML IV SCH (09:00)
[2017-05-17] MEDS: CALCIUM 600MG + VIT D 400 IU TAB PO SCH (10:09)
[2017-05-17] MEDS: DULOXETINE (CYMBALTA) 30 MG CAP PO SCH (10:10)
[2017-05-17] MEDS: SENNA 8.6 MG TAB PO SCH ×2 (10:10→10:27)
[2017-05-17] MEDS: APIXABAN 2.5 MG TAB PO SCH ×2 (10:10→21:10)
[2017-05-17] MEDS: PANTOprazole SOD 40 MG TAB PO SCH (10:11)
[2017-05-17] MEDS: LACTOBACILLUS ACIDOPHILUS 1 GM PACK PO SCH ×3 (10:11→17:00)
[2017-05-17] MEDS: CEFTRIAXONE SOD INJ 1 GM in DEXTROSE 5% ADD-VANTAGE 50ML 50 ML IV SCH (10:11)
[2017-05-17] MEDS: METOPROLOL SUCC 50MG EXT REL TAB PO SCH (10:14)
[2017-05-17] MEDS: ONDANSETRON INJ 2 MG/ML 2 ML VIAL IV PRN ×2 (10:27→18:33)
[2017-05-17] MEDS ORDERED: NURSING VERBAL MED ORDER ONE (10:45)
[2017-05-17] MEDS: ACETAMINOPHEN 325 MG TAB PO PRN ×2 (11:22→21:06)
[2017-05-17 11:28] VITALS: BP 129/74; PULSE 20; TEMP 37.3; O2SAT 90
[2017-05-17 14:28] VITALS: BP 168/97; PULSE 95; TEMP 37.1; O2SAT 92
[2017-05-17 17:47] VITALS: BP 115/65; PULSE 94; O2SAT 92
[2017-05-17] MEDS: BACITRACIN OINT 15 GM TUBE EXT SCH ×2 (18:33→21:04)
[2017-05-17 21:00] VITALS: BP 137/81; PULSE 80; TEMP 37; O2SAT 93
[2017-05-17] MEDS: CLONAZEPAM 0.5 MG TAB PO SCH (21:05)
[2017-05-17] MEDS: METOPROLOL SUCC 25MG EXT REL TAB PO SCH (21:09)
[2017-05-17] MEDS: QUETIAPINE FUMARATE 25 MG TAB PO SCH (21:09)
[2017-05-17] MEDS: PRAMIPEXOLE DIHYDROCHLORIDE 0.25MG TAB PO SCH (21:09)
[2017-05-17] MEDS: PRAVASTATIN SOD 10 MG TAB PO SCH (21:10)
--- NOTE | 2017-05-17 22:43 | Progress Note ---
Subjective Date of Service: May 17, 2017. Subjective 77 year old female is here for confusion. Patient does not know why she is in the hospital. She does not provide any complaints. Problem List Medical Problems: (1) Fracture of greater trochanter of right femur Status: Acute (2) Intractable low back pain Status: Acute (3) Lumbar radiculopathy Status: Acute (4) Skin tear of right elbow without complication Status: Acute Review of Systems Constitutional: No fever, No chills Eyes: No eye pain Respiratory: No cough, No sputum Cardiac: No chest pain, No orthopnea Abdomen: No pain, No nausea Neurologic: No paralysis Endo: No fatigue Skin: No rash All Other Systems: Reviewed and Negative Objective Vital Signs Date Time Temp Pulse Resp B/P (MAP) Pulse Ox O2 Delivery O2 Flow Rate FiO2 05/17/17 21:00 37.0 80 18 137/81 (99) 93 Room Air 05/17/17 17:47 94 18 115/65 (82) 92 Room Air 05/17/17 16:00 Nasal Cannula 2.0 05/17/17 14:28 37.1 95 20 168/97 (120) 92 Room Air 05/17/17 12:00 Nasal Cannula 2.0 05/17/17 11:28 37.3 20 20 129/74 (92) 90 Room Air 05/17/17 08:00 Nasal Cannula 2.0 05/17/17 07:23 36.8 119 20 173/92 (119) 93 Room Air 05/17/17 04:25 37.0 98 20 198/75 (116) 95 Room Air 05/17/17 04:00 Nasal Cannula 2.0 05/17/17 00:00 Nasal Cannula 2.0 05/16/17 23:55 36.8 128 20 184/135 (151) 97 Nasal Cannula 2.0 Physical Exam Comments: General Appearance: WD/WN, no apparent distress ENT: hearing grossly normal Neck: supple, no JVD, trachea midline Respiratory/Chest: lungs clear, normal breath sounds, no respiratory distress, no accessory muscle use Cardiovascular: regular rate, rhythm Abdomen: normal bowel sounds, non tender, soft Extremities: no pedal edema, no calf tenderness Neurologic/Psychiatric: alert, oriented x 3 Skin: normal color, warm/dry Assessment and Plan 77 years old female presented to the ED with gradual onset confusion started 1 week ago and reach its peak accompanied by inability to formulate words which can represent expressive aphasia or confusion from metabolic encephalopathy. Presented to the emergency department accompanied by her who brought her when she was unable to express herself this morning and was lost in the house trying to find the bathroom. Improved quickly after hydration and 1 dose of antibiotic. Urine analysis suspicious for UTI. Metabolic Encephalopathy: UTI vs Dehydration vs TIA vs Opiate-Induced/Benzo: - Patient is currently alert and oriented and feels at baseline and family members and friends confirm she has improved- however she is not at her baseline. 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 - Protonix 40 mg daily, Zofran PRN, and add Carafate PRN Severe RA - ImmunoSuppression - Methotrexate 10 mg weekly and prednisone 5 mg BID - Vitals have remained stable and no need for stress steroids at this time Paroxysmal Atrial Fibrillation: NSR Currently - Eliquis 5 mg BID and Toprol-XL 50 mg a.m. and 25 mg p.m. Chronic Diastolic Dysfunction/Aortic Valve Replacement/LBBB: DVT Prophylaxis: Eliquis Code Status: FULL RESUSCITATION Continued [facility] stay due to: multiple IV medications needed Discharge planning: home
[2017-05-17 23:15] LABS: HEMATOCRIT 37.9 % (37-47); HEMOGLOBIN 12.7 g/dL (12.0-16.0); MEAN CELL VOLUME 99.7 fL (80-100); MEAN CORPUSCULAR HEMOGLOBIN 33.4 pg (25-34); MEAN CORPUSCULAR HGB CONC 33.5 g/dl (32-36); RED CELL DISTRIBUTION WIDTH CV 14.7 % (11.5-14.5); RED CELL DISTRIBUTION WIDTH SD 52.5 fL (36.4-46.3); WHITE BLOOD COUNT 5.57 K/uL (4.8-10.8)
[2017-05-17 23:17] LABS: MEAN PLATELET VOLUME 9.1 fL (7.4-10.4); PLATELET COUNT 94 K/uL (130-400)
[2017-05-17 23:38] LABS: BASO % 0.2 %; BASO ABS # 0.01 K/uL (0-0.2); EOS % 2.5 %; EOS ABS # 0.14 K/uL (0-0.5); IG# 0.07 K/uL (0.00-0.02); LYMPH % 23.9 %; LYMPH ABS # 1.33 K/uL (1.2-3.4); MONO % 11.5 %; MONO ABS # 0.64 K/uL (0.11-0.59); NEUT % 60.6 %; NEUT ABS # 3.38 K/uL (1.4-6.5)
[2017-05-17 23:43] LABS: CALCIUM 8.7 mg/dl (8.5-10.1); CREATININE 0.84 mg/dl (0.60-1.20); POTASSIUM 3.6 mmol/L (3.5-5.1)
[2017-05-18] VITALS (8 sets, daily range): BP systolic 134–178; BP diastolic 73–90; PULSE 68–87; TEMP 36.4–37; O2SAT 91–98
[2017-05-18] MEDS: SODIUM CHLORIDE 0.9% 1000ML 1,000 ML IV SCH ×3 (04:43→19:42)
[2017-05-18] MEDS: METOPROLOL SUCC 50MG EXT REL TAB PO SCH (07:33)
[2017-05-18] MEDS: BACITRACIN OINT 15 GM TUBE EXT SCH ×3 (07:34→18:21)
[2017-05-18] MEDS: LACTOBACILLUS ACIDOPHILUS 1 GM PACK PO SCH ×3 (07:34→16:52)
[2017-05-18] MEDS: PANTOprazole SOD 40 MG TAB PO SCH (09:04)
[2017-05-18] MEDS: SENNA 8.6 MG TAB PO SCH (09:04)
[2017-05-18] MEDS: APIXABAN 2.5 MG TAB PO SCH ×2 (09:04→21:02)
[2017-05-18] MEDS: CALCIUM 600MG + VIT D 400 IU TAB PO SCH (09:05)
[2017-05-18] MEDS: CEFTRIAXONE SOD INJ 1 GM in DEXTROSE 5% ADD-VANTAGE 50ML 50 ML IV SCH (09:05)
[2017-05-18] MEDS: DULOXETINE (CYMBALTA) 30 MG CAP PO SCH (09:05)
[2017-05-18] MEDS ORDERED: VANCOMYCIN TROUGH ONE (11:30)
[2017-05-18] MEDS: ACETAMINOPHEN 325 MG TAB PO PRN (16:30)
[2017-05-18] MEDS: CLONAZEPAM 0.5 MG TAB PO SCH (20:58)
[2017-05-18] MEDS: METOPROLOL SUCC 25MG EXT REL TAB PO SCH (20:59)
[2017-05-18] MEDS: QUETIAPINE FUMARATE 25 MG TAB PO SCH (21:00)
[2017-05-18] MEDS: PRAMIPEXOLE DIHYDROCHLORIDE 0.25MG TAB PO SCH (21:00)
[2017-05-18] MEDS: PRAVASTATIN SOD 10 MG TAB PO SCH (21:01)
[2017-05-18] MEDS: ONDANSETRON INJ 2 MG/ML 2 ML VIAL IV PRN (22:03)
--- NOTE | 2017-05-19 01:12 | Progress Note ---
Subjective Date of Service: May 18, 2017. Subjective Pt evaluation today including: conversation w/ patient, physical exam Patien's was in the room. Patient states that she is no longer confused and needs to go to a alliance party with Ace Jaime. Patient's reports feeling she is not quite at baseline yet. Problem List Medical Problems: (1) Fracture of greater trochanter of right femur Status: Acute (2) Intractable low back pain Status: Acute (3) Lumbar radiculopathy Status: Acute (4) Skin tear of right elbow without complication Status: Acute Review of Systems Constitutional: No fever, No chills Respiratory: No cough, No sputum Cardiac: No chest pain, No orthopnea Abdomen: No pain, No nausea Neurologic: No memory loss Endo: No fatigue Skin: No rash, No itch All Other Systems: Reviewed and Negative Objective Vital Signs Date Time Temp Pulse Resp B/P (MAP) Pulse Ox O2 Delivery O2 Flow Rate FiO2 05/18/17 23:53 36.7 87 18 156/73 (100) 91 Room Air 05/18/17 23:03 37.0 82 20 146/75 (98) 95 Room Air 05/18/17 20:00 Room Air 05/18/17 19:18 36.5 86 18 134/78 (96) 93 Room Air 05/18/17 16:00 Room Air 05/18/17 14:48 36.6 68 16 150/80 (103) 91 Room Air 05/18/17 12:00 Room Air 05/18/17 11:28 36.4 74 18 152/77 (102) 98 Room Air 05/18/17 09:50 157/90 (112) 05/18/17 08:00 Room Air 05/18/17 07:25 36.8 73 18 178/83 (114) 92 Room Air 05/18/17 04:49 36.7 80 18 159/76 (103) 93 Room Air 05/18/17 04:00 Room Air Physical Exam Comments: General Appearance: WD/WN, no apparent distress ENT: hearing grossly normal Neck: supple, no JVD, trachea midline Respiratory/Chest: lungs clear, normal breath sounds, no respiratory distress, no accessory muscle use Cardiovascular: regular rate, rhythm Abdomen: normal bowel sounds, non tender, soft Extremities: no pedal edema, no calf tenderness Neurologic/Psychiatric: alert, oriented x 2 Skin: normal color, warm/dry Laboratory Results Last 24 Hours Test 05/18/17 23:30 Troponin I < 0.015 ng/ml Assessment and Plan 77 years old female presented to the ED with gradual onset confusion started 1 week ago and reach its peak accompanied by inability to formulate words which can represent expressive aphasia or confusion from metabolic encephalopathy. Presented to the emergency department accompanied by her who brought her when she was unable to express herself this morning and was lost in the house trying to find the bathroom. Improved quickly after hydration and 1 dose of antibiotic. Urine analysis suspicious for UTI. Metabolic Encephalopathy: UTI vs Dehydration vs TIA vs Opiate-Induced/Benzo: - Patient is currently alert and oriented and feels at baseline still feels patient is not herself. I agree that patient remains in delirium - Continue current management -However, will hold off opates as this may be causing her delirium Patient is on narcotics due to severe RA. Possible UTI: continue ceftriaxone. 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 - Protonix 40 mg daily, Zofran PRN, and add Carafate PRN Severe RA - ImmunoSuppression - Methotrexate 10 mg weekly and prednisone 5 mg BID - Vitals have remained stable and no need for stress steroids at this time Paroxysmal Atrial Fibrillation: NSR Currently - Eliquis 5 mg BID and Toprol-XL 50 mg a.m. and 25 mg p.m. Chronic Diastolic Dysfunction/Aortic Valve Replacement/LBBB: DVT Prophylaxis: Eliquis Continued [facility] stay due to: multiple IV medications needed Discharge planning: home
[2017-05-19 04:00] VITALS: BP 136/79; PULSE 87; TEMP 37.3; O2SAT 94
[2017-05-19 06:02] LABS: HEMATOCRIT 33.8 % (37-47); HEMOGLOBIN 11.1 g/dL (12.0-16.0); MEAN CORPUSCULAR HEMOGLOBIN 32.8 pg (25-34); MEAN CORPUSCULAR HGB CONC 32.8 g/dl (32-36); RED CELL DISTRIBUTION WIDTH CV 14.8 % (11.5-14.5); RED CELL DISTRIBUTION WIDTH SD 53.2 fL (36.4-46.3); WHITE BLOOD COUNT 4.93 K/uL (4.8-10.8)
[2017-05-19 06:06] LABS: MEAN PLATELET VOLUME 9.2 fL (7.4-10.4); PLATELET COUNT 86 K/uL (130-400)
[2017-05-19 06:31] LABS: CALCIUM 8.2 mg/dl (8.5-10.1); CREATININE 0.72 mg/dl (0.60-1.20); POTASSIUM 3.7 mmol/L (3.5-5.1)
[2017-05-19 07:17] VITALS: BP 152/77; PULSE 77; TEMP 37.3; O2SAT 91
[2017-05-19] MEDS: SENNA 8.6 MG TAB PO SCH (08:35)
[2017-05-19] MEDS: APIXABAN 2.5 MG TAB PO SCH (08:35)
[2017-05-19] MEDS: METOPROLOL SUCC 50MG EXT REL TAB PO SCH (08:35)
[2017-05-19] MEDS: DULOXETINE (CYMBALTA) 30 MG CAP PO SCH (08:36)
[2017-05-19] MEDS: BACITRACIN OINT 15 GM TUBE EXT SCH (08:36)
[2017-05-19] MEDS: CALCIUM 600MG + VIT D 400 IU TAB PO SCH (08:36)
[2017-05-19] MEDS: PANTOprazole SOD 40 MG TAB PO SCH (08:36)
[2017-05-19] MEDS: LACTOBACILLUS ACIDOPHILUS 1 GM PACK PO SCH ×2 (08:36→13:03)
[2017-05-19] MEDS: SODIUM CHLORIDE 0.9% 1000ML 1,000 ML IV SCH (09:03)
[2017-05-19] MEDS: ONDANSETRON INJ 2 MG/ML 2 ML VIAL IV PRN (09:07)
[2017-05-19] MEDS: CEFTRIAXONE SOD INJ 1 GM in DEXTROSE 5% ADD-VANTAGE 50ML 50 ML IV SCH (09:27)
[2017-05-19 11:30] VITALS: BP 157/85; PULSE 79; TEMP 36.6; O2SAT 96
[2017-05-19] MEDS ORDERED: ELQ25 PO (15:10)
[2017-05-19] MEDS ORDERED: AMOX875T PO (15:12)
--- NOTE | 2017-05-19 15:15 | Discharge Instructions ---
Discharge Instructions Date of Service May 19, 2017. Admission Reason for Admission: Complicated Uti, Metabolic Encephalopathy Discharge Discharge Diagnosis / Problem: Metabolic encephalopathy likely from pain medicine Discharge Goals Goal(s): Decrease discomfort, Improve function Activity Recommendations Activity Limitations: resume your previous activity . Instructions / Follow-Up Instructions / Follow-Up During hospital stay, patient has not had fentanyl patch and other pain medicine during last 3 days. Also patient has received 4 days of antibiotics. Will recommend continue with antibiotics for 6 more days. recommend f/u with PCP in 1-2 weeks Recommend cutting back pain medicine and only use if pain is severe. Should not be taking daily. Perhaps may try weaker medicine like tylenol Current Hospital Diet Patient's current hospital diet: Regular Diet Discharge Diet Recommended Diet: Regular Diet Pending Studies Studies pending at discharge: no Medical Emergencies . Who to Call and When: Medical Emergencies: If at any time you feel your situation is an emergency, please call 911 immediately. . Non-Emergent Contact Non-Emergency issues call your: Primary Care Provider Call Non-Emergent contact if: your pain is not controlled . . "Provider Documentation" section prepared by Bud Gee. . VTE Core Measure Inpt VTE Proph given/why not?: Other Anticoagulation
[2017-05-19 15:17] VITALS: BP 157/85; PULSE 79; TEMP 36.6; O2SAT 96
[2017-05-20] MEDS ORDERED: METHOTREXATE 2.5 MG TAB PO SCH (09:00)
--- NOTE | 2017-05-25 00:07 | Discharge Summary ---
Discharge Summary Date of Service May 19, 2017. Discharge Summary Admission Date: May 15, 2017 at 11:22 Discharge Date: May 19, 2017 Discharge Disposition: Home Principal Diagnosis: Metabloic encephalothy/ delirium likley from UTI and opiate use Immunizations: Have You Had Influenza Vaccine: Yes Influenza Vaccine Date: Feb 23, 2013 History of Tetanus Vaccine?: Unknown Tetanus Immunization Date: Mar 23, 2009 History of Pneumococcal: Yes Pneumococcal Date: Feb 21, 2011 History of Hepatitis B Vaccine: Unknown Medication Reconciliation New Medications: Amoxicillin & Pot Clavulanate (Augmentin 875-125 mg) 1 Tab Tab 875 MG PO BID, #12 TAB Apixaban (Eliquis) 2.5 Mg Tab 2.5 MG PO BID for 30 Days, #60 TAB Continued Medications: Adalimumab (Humira) 20 Mg/0.4 Ml Kit TAKES EVERY OTHER FRIDAY. Calcium Carbonate-Vitamin D (Calcium + D3 600-200 mg-Unit) 1 Tab Tab 1 TAB PO DAILY Clonazepam (Klonopin) 0.5 Mg Tab 0.5 MG PO HS, TAB Duloxetine Hcl (Cymbalta) 30 Mg Cap 30 MG PO DAILY, CAP Folic Acid (Folvite) 1 Mg Tab 1 TAB PO DAILY for 90 Days, #90 TAB 1 Refill Home O2 Therapy (Oxygen) Gas 2 LITERS NA HS Lidocaine (Lidocaine) 1 Patch Tdsy 5 % EXT DAILY PRN for Pain for 30 Days Methotrexate (Methotrexate) 2.5 Mg Tab 10 MG PO WK, TAB TAKES ON TUESDAYS. Metoprolol Succ (Toprol Xl) (Toprol-Xl) 25 Mg Tabcr 25 MG PO QPM, 0 Refills Metoprolol Succ (Toprol Xl) (Toprol-Xl) 50 Mg Tabcr 50 MG PO QAM, #30 TAB Pantoprazole (Protonix) 40 Mg Tab 40 MG PO DAILY, #30 TAB Pramipexole Dihydrochloride (Mirapex) 0.125 Mg Tab 0.125 MG PO HS, TAB Pravastatin (Pravachol ) 20 Mg Tab 10 MG PO HS, TAB Prednisone (Prednisone) 5 Mg Tab 5 MG PO BID, TAB Quetiapine Fumarate (Seroquel) 50 Mg Tab 50 MG PO HS, 0 Refills Senna (Senokot) 8.6 Mg Tab 1 TAB PO, TAB Discontinued Medications: Apixaban (Eliquis) 5 Mg Tab 5 MG PO BID Fentanyl (Fentanyl) 75 Mcg Tdsy 1 PATCH q3days Hydromorphone Hcl (Dilaudid) 2 Mg Tab 1 TAB PO QID PRN for Pain for 30 Days, #120 TAB Discharge Exam Review of Systems: Constitutional: No fever, No chills Respiratory: No cough, No sputum Cardiovascular: No chest pain, No orthopnea Abdomen: No pain, No nausea Musculoskeletal: + joint pain Neurologic: No memory loss, No paralysis Psychiatric: No depression symptoms, No anhedonism Endocrine: No fatigue, No excessive thirst Integumentary: No rash, No itch Physical Exam: General Appearance: WD/WN, no apparent distress Neck: supple, no adenopathy Respiratory/Chest: chest non-tender, lungs clear, normal breath sounds Cardiovascular: regular rate, rhythm, normal peripheral pulses Abdomen / GI: normal bowel sounds, non tender, soft Neurologic/Psychiatric: alert, oriented x 3 Skin: normal color Lymphatic: no adenopathy Hospital Course 77 years old female presented to the ED with gradual onset confusion started 1 week ago and reach its peak accompanied by inability to formulate words which can represent expressive aphasia or confusion from metabolic encephalopathy. Presented to the emergency department accompanied by her who brought her when she was unable to express herself this morning and was lost in the house trying to find the bathroom. Improved quickly after hydration and 1 dose of antibiotic. Urine analysis suspicious for UTI. Metabolic Encephalopathy: UTI vs Dehydration vs TIA vs Opiate-Induced/Benzo: During hospital course, patient gradually improved. Factors that may be affecting her delirium: opiate use as she has severe RA and possible UTI UTI was treated with ceftriaxone and changed to Augmentin as an outpatient. In regards to her pain management, opiates were discontinued. I explained to patient that despite her severe pain, she should try to use other management. Her goal should not be pain free, it should be having tolerable pain. I discussed with as well who was agreeable with taking patient home. Possible UTI: continue ceftriaxone. 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 - Protonix 40 mg daily, Zofran PRN, and add Carafate PRN Severe RA - ImmunoSuppression - Methotrexate 10 mg weekly and prednisone 5 mg BID - Vitals have remained stable and no need for stress steroids at this time Paroxysmal Atrial Fibrillation: NSR Currently - Eliquis 2.5 mg BID and Toprol-XL 50 mg a.m. and 25 mg p.m. Chronic Diastolic Dysfunction/Aortic Valve Replacement/LBBB: DVT Prophylaxis: Eliquis Total Time Spent: Greater than 30 minutes This includes examination of the patient, discharge planning, medication reconciliation, and communication with other providers. Discharge Instructions Please refer to the electronic Patient Visit Report (Discharge Instructions) for additional information. Follow-Up as per discharge summary Additional Copies To Cuong Chavez M.D.
== END 2017-05-19 15:45 | disposition home or self-care (01) | DRG 689 ==
LOC: C.EDB 07:59 → C.MED 11:22 → ENRESERV 12:33 → C.MED 05-16 23:14
PROVIDERS: ADMIT Internal Medicine; ATTEND Internal Medicine Sports Medicine
DX: N39.0 Urinary tract infection, site not specified (principal); G92 Toxic encephalopathy; G45.9 Transient cerebral ischemic attack, unspecified; I50.32 Chronic diastolic (congestive) heart failure; F11.20 Opioid dependence, uncomplicated; J96.11 Chronic respiratory failure with hypoxia; R47.01 Aphasia; T40.601A Poisoning by unspecified narcotics, accidental (unintentional), initial encounter; E86.0 Dehydration; K29.70 Gastritis, unspecified, without bleeding; L98.499 Non-pressure chronic ulcer of skin of other sites with unspecified severity; D69.59 Other secondary thrombocytopenia; T45.1X5A Adverse effect of antineoplastic and immunosuppressive drugs, initial encounter; I48.0 Paroxysmal atrial fibrillation; I44.7 Left bundle-branch block, unspecified; M06.9 Rheumatoid arthritis, unspecified; I69.398 Other sequelae of cerebral infarction; G54.3 Thoracic root disorders, not elsewhere classified; M54.9 Dorsalgia, unspecified; M81.0 Age-related osteoporosis without current pathological fracture; Z23 Encounter for immunization; Z99.81 Dependence on supplemental oxygen; Z96.643 Presence of artificial hip joint, bilateral; Z95.2 Presence of prosthetic heart valve; Z96.653 Presence of artificial knee joint, bilateral; Z79.01 Long term (current) use of anticoagulants; Z79.52 Long term (current) use of systemic steroids; Z79.899 Other long term (current) drug therapy

== ENCOUNTER 2017-05-30 09:52 | Emergency (ER) | payer BC, OTHER ==
[~2017-05-30 09:52] MED LIST changes: +AMOX875T PO; -APIX1TAB3 PO; +ELQ25 PO; -MRPSR15 PO; -OMEP40CA41 PO; +PANT40TA PO; +SENN-61 PO
[2017-05-30 10:13] VITALS: TEMP 37
--- NOTE | 2017-05-30 10:46 | EMERGENCY ROOM VISIT NOTE ---
History Report prepared by Ronda: Siobhan Claire Under the Supervision of: Dr. Rolando Atkinosn M.D. First contact with patient: 10:18 Chief Complaint: URINARY SYMPTOMS Stated Complaint: URINARY SYMPTOMS/INFECTION - REF BY DR Zavala Triage Summary: relates that she still has confusion. She was admitted for confusion recently. She relates that she has back pain. History of Present Illness The patient is a 77 year old female who presents to the Emergency Room with complaints of ?UTI related to recent admission for confusion found to have UTI 2 weeks ago. The patient's states that the patient was brought into the Emergency Department about one week ago and was admitted for 3-4 days, noting that she was brought due to her being extremely confused and having urinary symptoms. 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 During her last visit, the patient was told her symptoms were due to possible pain medicine build up or a urinary tract infection. The patient's states she was suggested to see a neurologist, noting she has not seen one yet. The patient denies any weakness. Her states that he would like her to have a straight cath. Source of History: family () Onset: about 2 weeks ago Position: other (global) Quality: other (urinary symptoms) Timing: other (persistent) Review of Systems See HPI for pertinent positives and negatives. A total of ten systems were reviewed and were otherwise negative. Past Medical & Surgical Medical Problems: (1) Atrial fibrillation (2) Complicated UTI (urinary tract infection) (3) Congestive heart failure (4) Hip fracture due to osteoporosis (5) Hypertension (6) Metabolic encephalopathy (7) Osteoporosis, unspecified Family History Unknown Social History Smoking Status: Never Smoker Drug Use: none Marital Status: Housing Status: lives with significant other Occupation Status: retired Current/Historical Medications Scheduled Apixaban (Eliquis), 2.5 MG PO BID Calcium Carbonate-Vitamin D (Calcium + D3 600-200 mg-Unit), 1 TAB PO BID Clonazepam (Klonopin), 0.5 MG PO HS Duloxetine Hcl (Cymbalta), 30 MG PO DAILY Folic Acid (Folvite), 1 TAB PO DAILY Home O2 Therapy (Oxygen), 2 LITERS NA HS Methotrexate (Methotrexate), 10 MG PO WK Metoprolol Succ (Toprol Xl) (Toprol-Xl), 25 MG PO QPM Metoprolol Succ (Toprol Xl) (Toprol-Xl), 50 MG PO QAM Pantoprazole (Protonix), 40 MG PO DAILY Pramipexole Dihydrochloride (Mirapex), 0.125 MG PO HS Pravastatin (Pravachol ), 10 MG PO HS Prednisone (Prednisone), 5 MG PO BID Quetiapine Fumarate (Seroquel), 50 MG PO HS Scheduled PRN Senna (Senokot), 1 TAB PO for Constipation Miscellaneous Medications Adalimumab (Humira) Allergies Coded Allergies: Aspirin (Verified Allergy, Unknown, Hives, 05/30/17) Celecoxib (Verified Allergy, Unknown, 05/30/17) Sulfa Antibiotics (Verified Allergy, Unknown, Unknown rxn, 05/30/17) Oxycodone (Verified Adverse Reaction, Mild, "GETS NERVOUS", 05/30/17) Physical Exam Vital Signs Date Time Temp Pulse Resp B/P (MAP) Pulse Ox O2 Delivery O2 Flow Rate FiO2 05/30/17 12:16 69 16 131/80 90 05/30/17 11:13 69 18 115/68 92 Room Air 05/30/17 11:00 66 05/30/17 10:13 37.0 76 20 109/71 94 Room Air Physical Exam GENERAL: Awake, alert, well-appearing, in no distress HENT: Dry cracked mucous membranes. Normocephalic, atraumatic. Oropharynx unremarkable. EYES: Normal conjunctiva. Sclera non-icteric. NECK: Supple. No nuchal rigidity. FROM. No JVD. RESPIRATORY: Clear to auscultation. CARDIAC: 2/6 systolic murmur. Regular rate, normal rhythm. Extremities warm and well perfused. Pulses equal. ABDOMEN: Soft, non-distended. No tenderness to palpation. No rebound or guarding. No masses. RECTAL: Deferred. MUSCULOSKELETAL: Chest examination reveals no tenderness. The back is symmetrical on inspection without obvious abnormality. There is no CVA tenderness to palpation. No joint edema. LOWER EXTREMITIES: Calves are equal size bilaterally and non-tender. No edema. No discoloration. NEURO: Neuro intact. Normal sensorium. No sensory or motor deficits noted. Normal cerebellar function with [id number], alternating palms SKIN: No rash or jaundice noted. Medical Decision & Procedures ER Provider Diagnostic Interpretation: Radiology results as stated below per my review and radiologist interpretation: CHEST ONE VIEW PORTABLE CLINICAL HISTORY: ABDOMINAL PAIN/GI pain. Infection. COMPARISON STUDY: 05/15/2017 FINDINGS: Prior median sternotomy. Calcification mitral annulus. A atelectasis right base. Mild emphysematous change. Prior right shoulder arthroplasty. IMPRESSION: Chronic and postoperative change. No acute process. The above report was generated using voice recognition software. It may contain grammatical, syntax or spelling errors. Electronically signed by: Slava Strong M.D. 05/30/2017 10:59 AM Dictated Date/Time: 05/30/2017 10:58 AM Laboratory Results 05/30/17 10:40 Red Blood Count 3.95, Mean Corpuscular Volume 100.0, Mean Corpuscular Hemoglobin 32.2, Mean Corpuscular Hemoglobin Concent 32.2, Mean Platelet Volume 9.3, Neutrophils (%) (Auto) 63.6, Lymphocytes (%) (Auto) 20.6, Monocytes (%) ( Auto) 9.9, Eosinophils (%) (Auto) 2.5, Basophils (%) (Auto) 0.2, Neutrophils # ( Auto) 3.33, Lymphocytes # (Auto) 1.08, Monocytes # (Auto) 0.52, Eosinophils # ( Auto) 0.13, Basophils # (Auto) 0.01 05/30/17 10:40 Test 05/30/17 10:40 05/30/17 10:55 White Blood Count 5.24 K/uL (4.8-10.8) Red Blood Count 3.95 M/uL (4.2-5.4) Hemoglobin 12.7 g/dL (12.0-16.0) Hematocrit 39.5 % (37-47) Mean Corpuscular Volume 100.0 fL (80-100) Mean Corpuscular Hemoglobin 32.2 pg (25-34) Mean Corpuscular Hemoglobin Concent 32.2 g/dl (32-36) Platelet Count 128 K/uL (130-400) Mean Platelet Volume 9.3 fL (7.4-10.4) Neutrophils (%) (Auto) 63.6 % Lymphocytes (%) (Auto) 20.6 % Monocytes (%) (Auto) 9.9 % Eosinophils (%) (Auto) 2.5 % Basophils (%) (Auto) 0.2 % Neutrophils # (Auto) 3.33 K/uL (1.4-6.5) Lymphocytes # (Auto) 1.08 K/uL (1.2-3.4) Monocytes # (Auto) 0.52 K/uL (0.11-0.59) Eosinophils # (Auto) 0.13 K/uL (0-0.5) Basophils # (Auto) 0.01 K/uL (0-0.2) RDW Standard Deviation 52.4 fL (36.4-46.3) RDW Coefficient of Variation 14.4 % (11.5-14.5) Immature Granulocyte % (Auto) 3.2 % Immature Granulocyte # (Auto) 0.17 K/uL (0.00-0.02) Anion Gap 7.0 mmol/L (3-11) Estimated GFR () 66.5 Estimated GFR (Non- 57.4 BUN/Creatinine Ratio 22.1 (10-20) Calcium Level 9.3 mg/dl (8.5-10.1) Total Bilirubin 0.9 mg/dl (0.2-1) Direct Bilirubin 0.1 mg/dl (0-0.2) Aspartate Amino Transf (AST/SGOT) 19 U/L (15-37) Alanine Aminotransferase (ALT/SGPT) 24 U/L (12-78) Alkaline Phosphatase 48 U/L (45-117) Total Protein 7.3 gm/dl (6.4-8.2) Albumin 3.2 gm/dl (3.4-5.0) Lipase 109 U/L (73-393) Urine Color YELLOW Urine Appearance CLEAR (CLEAR) Urine pH 5.0 (4.5-7.5) Urine Specific [place] 1.024 (1.000-1.030) Urine Protein NEG (NEG) Urine Glucose (UA) NEG (NEG) Urine Ketones NEG (NEG) Urine Occult Blood NEG (NEG) Urine Nitrite NEG (NEG) Urine Bilirubin NEG (NEG) Urine Urobilinogen NEG (NEG) Urine Leukocyte Esterase TRACE (NEG) Urine WBC (Auto) 1-5 /hpf (0-5) Urine RBC (Auto) 0-4 /hpf (0-4) Urine Hyaline Casts (Auto) 1-5 /lpf (0-5) Urine Epithelial Cells (Auto) 5-10 /lpf (0-5) Urine Bacteria (Auto) NEG (NEG) Laboratory results reviewed by me ECG Indication: altered mental status, other (urinary symptoms) Rate (beats per minute): 70 Rhythm: normal sinus Findings: LBBB, no acute ischemic change, other (normal axis, no sgarbossa) Change: no significant change ED Course 1026: The patient was evaluated in room B10. A complete history and physical exam was performed. 1216: I reevaluated the patient and she is feeling significantly better. I discussed test findings and the treatment plan. The patient and her verbalized complete understanding and agreement. The patient was discharged home. Medical Decision I reviewed the patient's past medical history, medications, and the nursing notes as described above. The patient's presentation and history were concerning for UTI, dehydration, electrolyte abnormality, and pneumonia. The patient is 77-year-old woman who presents emergency Department requesting a straight cath UA for symptoms of intermittent confusion which is not entirely resolved since being admitted for a UTI recently per hpi. Of note the patient was admitted for episode of confusion and difficulty with coherent speech found be attributed to UTI and likely build up of her chronic narcotics. CT head was negative at that time and given the patient's improvement and likely metabolic,/ infectious etiology MRI was deferred. On arrival the patient is well-appearing , no acute distress, afebrile stable vital signs. Labs unremarkable including WBC within normal limits. Straight cath UA negative. CXR negative. Given the patient is well-appearing at this time with no symptoms no indication for head imaging at this time. He was discussed with the patient and her plan is for PCP follow-up and to discuss the possibility being neurology follow-up and possible additional imaging. I discussed that the patient is well- appearing in no symptoms at this time it is possible that the patient is mildly dehydrated with BUN/Cr >20 however creatinine within normal limits thus no need for IV fluid hydration. Recommended that the patient ensure hydration daily. Additionally the patient may require more time to recover from her recent UTI to return completely to baseline. Findings and plan for follow-up reviewed with patient. Patient agreeable and d/c'd per discharge instructions. Medication Reconcilliation Current Medication List: was personally reviewed by me Blood Pressure Screening Patient's blood pressure: Normal blood pressure Impression Primary Impression: Intermittent confusion Scribe Attestation The scribe's documentation has been prepared under my direction and personally reviewed by me in its entirety. I confirm that the note above accurately reflects all work, treatment, procedures, and medical decision making performed by me. Departure Information Dispostion Home / Self-Care Referrals Cuong Chavez M.D. (PCP) Lizeth Taylor D.O. Forms HOME CARE DOCUMENTATION FORM, IMPORTANT VISIT INFORMATION Patient Instructions Dementia, ED Confusion, My [facility] Additional Instructions Please follow up with your primary care physician in the next 1-3 days for re- evaluation. You may also follow up with neurology in a non-urgent manner as needed. Your symptoms may be age-related after having a recent illness. Otherwise, your exam, EKG, chest xray, and lab results did not show signs of an emergent condition at this time. Drink plenty of fluids to ensure hydration. Return to the emergency department for worsening symptoms as described in the accompanying instructions.
[2017-05-30] MEDS ORDERED: APIX1TAB PO (11:00)
--- NOTE | 2017-05-30 11:00 | DIAGNOSTIC IMAGING REPORT ---
CHEST ONE VIEW PORTABLE CLINICAL HISTORY: ABDOMINAL PAIN/GI pain. Infection. COMPARISON STUDY: 05/15/2017 FINDINGS: Prior median sternotomy. Calcification mitral annulus. A atelectasis right base. Mild emphysematous change. Prior right shoulder arthroplasty. IMPRESSION: Chronic and postoperative change. No acute process. The above report was generated using voice recognition software. It may contain grammatical, syntax or spelling errors. Electronically signed by: Slava Strong M.D. 05/30/2017 10:59 AM Dictated Date/Time: 05/30/2017 10:58 AM
[2017-05-30 11:04] LABS: BASO % 0.2 %; BASO ABS # 0.01 K/uL (0-0.2); EOS % 2.5 %; EOS ABS # 0.13 K/uL (0-0.5); HEMATOCRIT 39.5 % (37-47); HEMOGLOBIN 12.7 g/dL (12.0-16.0); IG# 0.17 K/uL (0.00-0.02); LYMPH % 20.6 %; LYMPH ABS # 1.08 K/uL (1.2-3.4); MEAN CORPUSCULAR HEMOGLOBIN 32.2 pg (25-34); MEAN CORPUSCULAR HGB CONC 32.2 g/dl (32-36); MEAN PLATELET VOLUME 9.3 fL (7.4-10.4); MONO % 9.9 %; MONO ABS # 0.52 K/uL (0.11-0.59); NEUT % 63.6 %; NEUT ABS # 3.33 K/uL (1.4-6.5); PLATELET COUNT 128 K/uL (130-400); RED CELL DISTRIBUTION WIDTH CV 14.4 % (11.5-14.5); RED CELL DISTRIBUTION WIDTH SD 52.4 fL (36.4-46.3); WHITE BLOOD COUNT 5.24 K/uL (4.8-10.8)
[2017-05-30 11:22] LABS: ALBUMIN 3.2 gm/dl (3.4-5.0); ALT/SGPT 24 U/L (12-78); AST/SGOT 19 U/L (15-37); BLOOD UREA NITROGEN 21 mg/dl (7-18); CALCIUM 9.3 mg/dl (8.5-10.1); CARBON DIOXIDE 30 mmol/L (21-32); CREATININE 0.95 mg/dl (0.60-1.20); GLUCOSE 120 mg/dl (70-99); LIPASE 109 U/L (73-393); POTASSIUM 3.8 mmol/L (3.5-5.1); SODIUM 137 mmol/L (136-145)
[2017-05-30 11:24] LABS: ALKALINE PHOSPHATASE 48 U/L (45-117); TOTAL PROTEIN 7.3 gm/dl (6.4-8.2)
[2017-05-30 12:16] VITALS: BP 131/80; PULSE 69; O2SAT 90
== END 2017-05-30 12:12 | disposition home or self-care (01) ==
LOC: C.EDB 09:55
DX: R41.0 Disorientation, unspecified (principal); M54.9 Dorsalgia, unspecified; I48.91 Unspecified atrial fibrillation; I50.9 Heart failure, unspecified; I11.0 Hypertensive heart disease with heart failure; M81.0 Age-related osteoporosis without current pathological fracture; G93.41 Metabolic encephalopathy

== ENCOUNTER → 2017-06-19 | Outpatient (CLI) | payer BC ==
[~2017-06-19] MED LIST changes: -AMOX875T PO; +APIX1TAB PO; -ELQ25 PO; -LDDP5 EXT
[2017-06-19 14:38] LABS: BASO % 0.1 %; BASO ABS # 0.01 K/uL (0-0.2); EOS % 0.5 %; EOS ABS # 0.04 K/uL (0-0.5); HEMATOCRIT 38.6 % (37-47); HEMOGLOBIN 12.3 g/dL (12.0-16.0); IG# 0.04 K/uL (0.00-0.02); LYMPH % 11.8 %; LYMPH ABS # 0.86 K/uL (1.2-3.4); MEAN CELL VOLUME 102.9 fL (80-100); MEAN CORPUSCULAR HEMOGLOBIN 32.8 pg (25-34); MEAN CORPUSCULAR HGB CONC 31.9 g/dl (32-36); MEAN PLATELET VOLUME 9.5 fL (7.4-10.4); MONO % 4.9 %; MONO ABS # 0.36 K/uL (0.11-0.59); NEUT % 82.2 %; NEUT ABS # 5.97 K/uL (1.4-6.5); PLATELET COUNT 119 K/uL (130-400); RED CELL DISTRIBUTION WIDTH CV 14.9 % (11.5-14.5); RED CELL DISTRIBUTION WIDTH SD 55.1 fL (36.4-46.3); WHITE BLOOD COUNT 7.28 K/uL (4.8-10.8)
[2017-06-19 14:58] LABS: ALBUMIN 3.4 gm/dl (3.4-5.0); ALT/SGPT 27 U/L (12-78); CREATININE 0.96 mg/dl (0.60-1.20)
[2017-06-19 15:01] LABS: ALKALINE PHOSPHATASE 42 U/L (45-117); AST/SGOT 25 U/L (15-37); TOTAL PROTEIN 7.3 gm/dl (6.4-8.2)
== END | disposition home or self-care (01) ==
LOC: C.LAB1850 12:51
PROVIDERS: ATTEND Internal Medicine Rheumatology
DX: M06.9 Rheumatoid arthritis, unspecified (principal); M81.0 Age-related osteoporosis without current pathological fracture; Z79.52 Long term (current) use of systemic steroids; Z79.899 Other long term (current) drug therapy

== ENCOUNTER → 2017-08-15 | Outpatient (CLI) | payer BC ==
[~2017-08-15] MED LIST changes: -METO50TA7 PO; +METO50TA8 PO; -PRAM0.129 PO; +[UNRECOGNIZED DRUG - CODE] PO
--- NOTE | 2017-08-15 12:50 | DIAGNOSTIC IMAGING REPORT ---
ABDOMINAL ULTRASOUND COMPLETE HISTORY: Nausea. Generalized abdominal pain.. COMPARISON: Abdominal ultrasound 05/15/2017. FINDINGS: Pancreas: The pancreas demonstrates a normal echotexture. Liver: There is an 8 mm cyst within the right hepatic lobe. No hepatic masses. Gallbladder: No gallbladder wall thickening. Multiple small gallstones. CBD: 5 mm. Kidneys: No hydronephrosis. Mild bilateral cortical renal thinning, unchanged. A 1 cm left renal cyst. Spleen: Normal in size measuring 11.6 cm in length. No change in 1.2 cm echogenic lesion within the spleen. Therefore, this is likely benign. Aorta: Normal in caliber. IVC: Patent. IMPRESSION: 1. No significant change compared the prior study. 2. Cholelithiasis. No gallbladder wall thickening. Electronically signed by: Cam Quezada M.D. 08/15/2017 12:49 PM Dictated Date/Time: 08/15/2017 12:47 PM
--- NOTE | 2017-08-15 13:17 | DIAGNOSTIC IMAGING REPORT ---
KUB HISTORY: Acute nausea with generalized abdominal pain NAUSEA, ABD PAIN, R73.09 E55.9 D51.9 E78.9 R53.83 COMPARISON: None. FINDINGS: The bowel gas pattern is non-obstructive. Mild to moderate stool volume. Punctate high attenuating material is seen throughout the distribution of the colon suggesting ingested material. Calcifications of the pelvis suggest phleboliths. Vascular calcifications are noted throughout. There is no organomegaly. The renal shadows are obscured by bowel gas. No renal calculi. No ureteral calculi. No pneumoperitoneum or pneumatosis. No fracture. Bilateral hip arthroplasties. Multilevel degenerative changes about the spine. IMPRESSION: 1. Nonobstructive bowel gas pattern. 2. Mild to moderate stool volume throughout the colon. Electronically signed by: Sincere Chen M.D. 08/15/2017 1:16 PM Dictated Date/Time: 08/15/2017 1:13 PM
[2017-08-15 14:45] LABS: BASO % 0.3 %; BASO ABS # 0.02 K/uL (0-0.2); EOS % 2.4 %; EOS ABS # 0.14 K/uL (0-0.5); HEMOGLOBIN 12.6 g/dL (12.0-16.0); IG# 0.14 K/uL (0.00-0.02); LYMPH % 23.7 %; LYMPH ABS # 1.38 K/uL (1.2-3.4); MEAN CELL VOLUME 102.1 fL (80-100); MEAN CORPUSCULAR HGB CONC 32.3 g/dl (32-36); MEAN PLATELET VOLUME 9.4 fL (7.4-10.4); MONO % 8.4 %; MONO ABS # 0.49 K/uL (0.11-0.59); NEUT % 62.8 %; NEUT ABS # 3.66 K/uL (1.4-6.5); PLATELET COUNT 123 K/uL (130-400); RED CELL DISTRIBUTION WIDTH CV 13.7 % (11.5-14.5); RED CELL DISTRIBUTION WIDTH SD 50.8 fL (36.4-46.3); WHITE BLOOD COUNT 5.83 K/uL (4.8-10.8)
[2017-08-15 14:46] LABS: ALBUMIN 3.4 gm/dl (3.4-5.0); ALT/SGPT 27 U/L (12-78); AST/SGOT 27 U/L (15-37); BLOOD UREA NITROGEN 15 mg/dl (7-18); CALCIUM 9.2 mg/dl (8.5-10.1); CARBON DIOXIDE 32 mmol/L (21-32); CHOLESTEROL 199 mg/dl (0-200); CREATININE 0.84 mg/dl (0.60-1.20); GLUCOSE 83 mg/dl (70-99); POTASSIUM 3.6 mmol/L (3.5-5.1); SODIUM 138 mmol/L (136-145); URIC ACID 6.8 mg/dl (2.6-7.2)
[2017-08-15 14:55] LABS: ALKALINE PHOSPHATASE 39 U/L (45-117); LDL CHOLESTEROL CALCULATED 73 mg/dl; TRANSFERRIN 186 mg/dl (200-360)
[2017-08-16 07:43] LABS: HEMOGLOBIN A1C 5.3 % (4.5-5.6)
== END | disposition home or self-care (01) ==
LOC: C.ULTR 12:04
PROVIDERS: ATTEND Family Medicine
DX: R73.09 Other abnormal glucose (principal); E55.9 Vitamin D deficiency, unspecified; D51.9 Vitamin B12 deficiency anemia, unspecified; E78.9 Disorder of lipoprotein metabolism, unspecified; R53.83 Other fatigue; R10.9 Unspecified abdominal pain

== ENCOUNTER 2017-12-22 11:08 | Observation (INO) | payer BC ==
[~2017-12-22] VITALS: Ht 157.5 cm; Wt 58.4 kg
[~2017-12-22 11:08] MED LIST changes: +ACET-1256 PO; -ADAL20KI; +ADAL40KI INJ; +ALPR-411 PO; -APIX1TAB PO; +APIX1TAB3 PO; +ATOR-22 PO; -CLON0.5T3 PO; +ERGO2000 PO; +KLN/5 PO; +LDDP5 TOP; +METO100T44 PO; -METO25TA3 PO; -METO50TA8 PO; +MORP15TA PO; -PRAV20TA PO; +PRD/1 PO; +PRED20TA PO
[2017-12-22] MEDS ORDERED: NITROGLYCERIN 0.4 MG SL PER TAB CHARGE SL PRN (11:30)
--- NOTE | 2017-12-22 11:32 | EMERGENCY ROOM VISIT NOTE ---
History Report prepared by Ronda: Anne-Marie Rios Under the Supervision of: Dr. Navjot Sesay D.O. First contact with patient: 11:18 Chief Complaint: STROKE SYMPTOMS Stated Complaint: SENT BY DR RICE FOR POSSIBLE STROKE Nursing Triage Summary: pt reports dizziness started this am at 0800. pt reports terrible headache . right arm pain has hx of 2 past strokes all started with dizziness. smile equal and able to move extremities. follows directions History of Present Illness The patient is a 77 year old female who presents to the Emergency Room with complaints of sudden stroke symptoms beginning 3.5 hours ago. The patient complains of dizziness, palpitations, chest pain, right arm pain, and a headache. She states that her chest pain feels like a pressure in the middle of her chest. She notes that her dizziness is similar to the two strokes she has had in the past. The patient denies jaw pain, nausea, vomiting, change in vision , shortness of breath, weakness, and numbness. She denies taking any Aspirin today. She notes that she does take Eliquis and has not missed any doses. Source of History: patient Onset: 3.5 hours ago Position: chest Quality: other (stroke symptoms) Timing: other (sudden) Associated Symptoms: + chest pain, No SOB, No nausea, No vomiting, No weakness, No numbness Note: The patient complains of dizziness, palpitations, and right arm pain. The patient denies jaw pain and change in vision. Review of Systems See HPI for pertinent positives & negatives. A total of 10 systems reviewed and were otherwise negative. Past Medical & Surgical Medical Problems: (1) Ambulatory dysfunction (2) Atrial fibrillation (3) Basal cell carcinoma (4) Chest pain (5) Complicated UTI (urinary tract infection) (6) Compression fracture (7) Congestive heart failure (8) Coronary artery disease (9) Dyspnea (10) GERD (gastroesophageal reflux disease) (11) Headache (12) Headache (13) Hip fracture due to osteoporosis (14) History of CVA (cerebrovascular accident) (15) History of hysterectomy (16) Hypercholesterolemia (17) Hypertension (18) Metabolic encephalopathy (19) Murmur, cardiac (20) On prednisone therapy (21) Osteoarthritis (22) Osteoporosis, unspecified (23) Peripheral vision loss (24) Rheumatoid arthritis (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 Surgical Problems: (1) History of bilateral hip arthroplasty (2) History of bilateral knee arthroplasty (3) History of heart valve replacement (4) History of shoulder surgery (5) Status post Mohs surgery for basal cell carcinoma Family History FH: breast cancer FHx: rheumatoid arthritis Heart disease Social History Smoking Status: Never Smoker Drug Use: none Marital Status: Housing Status: lives with significant other Occupation Status: retired Current/Historical Medications Scheduled Adalimumab (Humira Pen), 1 DOSE INJ [id number] Apixaban (Eliquis), 5 MG PO BID Atorvastatin (Lipitor), 20 MG PO NOON Calcium Carbonate-Vitamin D (Calcium + D3 600-200 mg-Unit), 1 TAB PO BID Clonazepam (Klonopin), 0.5 MG PO NOON Duloxetine Hcl (Cymbalta), 30 MG PO QAM Ergocalciferol (Vitamin D), 1 TAB PO BID Folic Acid (Folvite), 1 TAB PO NOON Home O2 Therapy (Oxygen), 2 LITERS NA HS Lidocaine (Lidocaine), 1 DOSE TOP UD Methotrexate (Methotrexate), 10 MG PO WK Metoprolol Succ (Toprol Xl) (Toprol-Xl ), 100 MG PO QAM Morphine Sulfate Ir (Morphine Sulfate Ir), 15 MG PO TID Pantoprazole (Protonix), 40 MG PO NOON Prednisone (Prednisone), 2 MG PO HS Prednisone (Prednisone), 20 MG PO QAM Prednisone (Prednisone), 5 MG PO NOON Quetiapine Fumarate (Seroquel), 50 MG PO HS Senna (Senokot), 1 TAB PO QPM Scheduled PRN Acetaminophen (Tylenol), 500 MG PO Q4H PRN for Pain or Fever Alprazolam (Xanax), 0.5 MG PO Q6H PRN for Anxiety Pramipexole Dihydrochloride (Mirapex), 0.125 MG PO HS PRN for RESTLESS LEGS Allergies Coded Allergies: Aspirin (Verified Allergy, Unknown, Hives, 12/22/17) Celecoxib (Verified Allergy, Unknown, UNKNOWN, 12/22/17) Pt does not know if she's allergic- doesn't remember being told this is an allergy Sulfa Antibiotics (Verified Allergy, Unknown, Unknown rxn, 12/22/17) Pt does not know if she is allergic to this- unsure how it is on her list Oxycodone (Verified Adverse Reaction, Mild, "GETS NERVOUS", 12/22/17) Physical Exam Vital Signs Date Time Temp Pulse Resp B/P (MAP) Pulse Ox O2 Delivery O2 Flow Rate FiO2 12/22/17 13:01 146/80 12/22/17 12:53 71 18 155/84 94 Nasal Cannula 2.0 12/22/17 12:53 155/84 12/22/17 12:38 74 21 95 12/22/17 12:31 155/84 12/22/17 12:08 77 22 95 12/22/17 12:01 141/111 12/22/17 11:56 94/55 12/22/17 11:53 96/59 12/22/17 11:53 75 20 96/59 92 Room Air 12/22/17 11:51 108/66 12/22/17 11:48 153/82 12/22/17 11:48 67 22 153/82 92 Room Air 12/22/17 11:32 65 12/22/17 11:31 162/88 12/22/17 11:26 162/100 12/22/17 11:14 37.0 71 18 126/79 95 Room Air Physical Exam GENERAL: Sitting up in bed, chronically ill appearing, disheveled EYE EXAM: normal conjunctiva. OROPHARYNX: no exudate, no erythema, lips, buccal mucosa, and tongue normal and mucous membranes are moist NECK: supple, no nuchal rigidity, no adenopathy, non-tender LUNGS: Clear to auscultation. Normal chest wall mechanics HEART: systolic ejection murmur, S1 normal and S2 normal ABDOMEN: abdomen soft, non-tender, normo-active bowel sounds, no masses, no rebound or guarding. BACK: Back is symmetrical on inspection and there is no deformity, no midline tenderness, no CVA tenderness. SKIN: no rashes and no bruising UPPER EXTREMITIES: upper extremities are grossly normal. LOWER EXTREMITIES: No pitting edema. NEURO EXAM: Normal sensorium, cranial nerves II-XII intact, normal speech, no weakness of arms, no weakness of legs. No drift. Finger to nose intact. Gross sensation intact. Medical Decision & Procedures ER Provider Diagnostic Interpretation: Radiology results as stated below per my review and the radiologist's interpretation: CT HEAD WITHOUT CONTRAST (CT) CLINICAL HISTORY: Headache and dizziness. History of stroke. COMPARISON STUDY: 11/07/2017 TECHNIQUE: Axial CT of the brain is performed from the vertex to the skull base. IV contrast was not administered for this examination. A dose lowering technique was utilized adhering to the principles of ALARA. CT DOSE: 537.48 mGy.cm FINDINGS: No intra or extra-axial mass lesions are visualized. There is no CT evidence of acute cortical infarction. There is no evidence of midline shift. There is no acute hemorrhage. No calvarial fractures are visualized. There are patchy white matter hypodensities likely on a small vessel basis. There is an old right temporal occipital infarct. There is no evidence of pathologic ventricular dilatation. There is no evidence of acute sinusitis IMPRESSION: Old post infarct changes. No acute intracranial findings. Electronically signed by: Sam Lopes M.D. 12/22/2017 11:49 AM Dictated Date/Time: 12/22/2017 11:47 AM CHEST ONE VIEW PORTABLE CLINICAL HISTORY: Chest Pain dyspnea COMPARISON STUDY: 11/07/2017 FINDINGS: Operative findings consistent with a prior median sternotomy. Calcification mitral annulus. Lungs are clear. Chronic platelike atelectasis right base. IMPRESSION: Chronic and postoperative change. No acute process. The above report was generated using voice recognition software. It may contain grammatical, syntax or spelling errors. Electronically signed by: Slava Strong M.D. 12/22/2017 11:56 AM Dictated Date/Time: 12/22/2017 11:56 AM Laboratory Results 12/22/17 11:31 Red Blood Count 3.71, Mean Corpuscular Volume 100.8, Mean Corpuscular Hemoglobin 32.3, Mean Corpuscular Hemoglobin Concent 32.1, Mean Platelet Volume 9.2, Neutrophils (%) (Auto) 79.1, Lymphocytes (%) (Auto) 11.3, Monocytes (%) ( Auto) 7.3, Eosinophils (%) (Auto) 0.1, Basophils (%) (Auto) 0.1, Neutrophils # ( Auto) 5.32, Lymphocytes # (Auto) 0.76, Monocytes # (Auto) 0.49, Eosinophils # ( Auto) 0.01, Basophils # (Auto) 0.01 12/22/17 11:31 Test 12/22/17 11:31 White Blood Count 6.73 K/uL (4.8-10.8) Red Blood Count 3.71 M/uL (4.2-5.4) Hemoglobin 12.0 g/dL (12.0-16.0) Hematocrit 37.4 % (37-47) Mean Corpuscular Volume 100.8 fL (80-100) Mean Corpuscular Hemoglobin 32.3 pg (25-34) Mean Corpuscular Hemoglobin Concent 32.1 g/dl (32-36) Platelet Count 129 K/uL (130-400) Mean Platelet Volume 9.2 fL (7.4-10.4) Neutrophils (%) (Auto) 79.1 % Lymphocytes (%) (Auto) 11.3 % Monocytes (%) (Auto) 7.3 % Eosinophils (%) (Auto) 0.1 % Basophils (%) (Auto) 0.1 % Neutrophils # (Auto) 5.32 K/uL (1.4-6.5) Lymphocytes # (Auto) 0.76 K/uL (1.2-3.4) Monocytes # (Auto) 0.49 K/uL (0.11-0.59) Eosinophils # (Auto) 0.01 K/uL (0-0.5) Basophils # (Auto) 0.01 K/uL (0-0.2) RDW Standard Deviation 61.4 fL (36.4-46.3) RDW Coefficient of Variation 16.8 % (11.5-14.5) Immature Granulocyte % (Auto) 2.1 % Immature Granulocyte # (Auto) 0.14 K/uL (0.00-0.02) Anion Gap 8.0 mmol/L (3-11) Estimated GFR () 75.0 Estimated GFR (Non- 64.7 BUN/Creatinine Ratio 20.8 (10-20) Calcium Level 8.8 mg/dl (8.5-10.1) Total Bilirubin 1.1 mg/dl (0.2-1) Direct Bilirubin 0.3 mg/dl (0-0.2) Aspartate Amino Transf (AST/SGOT) 26 U/L (15-37) Alanine Aminotransferase (ALT/SGPT) 28 U/L (12-78) Alkaline Phosphatase 50 U/L (45-117) Total Creatine Kinase 20 U/L (26-192) Creatine Kinase MB 1.4 ng/ml (0.5-3.6) Creatine Kinase MB Ratio 7.0 (0-3.0) Troponin I < 0.015 ng/ml (0-0.045) Total Protein 7.3 gm/dl (6.4-8.2) Albumin 3.4 gm/dl (3.4-5.0) Laboratory results per my review. Medications Administered Medications (Trade) Dose Ordered Sig/Wero Route Start Time Stop Time Status Last Admin Dose Admin Nitroglycerin (Nitrostat Tab) 0.4 mg Q5M PRN SL 12/22/17 11:30 12/22/17 15:03 DC 12/22/17 11:49 0.4 MG Sodium Chloride 500 ml @ 999 mls/hr Q31M STAT IV 12/22/17 11:56 12/22/17 12:26 DC 12/22/17 12:12 999 MLS/HR Ondansetron HCl (Zofran Inj) 4 mg Q6H PRN IV 12/22/17 13:00 01/21/18 12:59 12/22/17 16:04 4 MG ECG Per My Interpretation Indication: chest pain Rate (beats per minute): 64 Rhythm: sinus rhythm Findings: LBBB, left axis deviation, other (poor baseline) Comparison ECG Date: 11/08/2017 Change: no significant change ED Course ED COURSE: Vital signs were reviewed and showed hypertensive. The patients medical record was reviewed The above diagnostic studies were performed and reviewed. ED treatments and interventions as stated above. 1120: The patient was evaluated in room B7. A complete history and physical examination was performed. 1130: Ordered Nitroglycerin 0.4 mg PRN SL cp. 1156: Ordered NSS 500 ml @ 999 mls/hr IV. 1210: Upon reevaluation, the patient is resting comfortably. I discussed my findings with the patient and she understands and agrees with the treatment plan. Based on the patients age, coexisting illnesses, exam and lab findings the decision to treat as an inpatient was made. The patient remained stable while under my care. The patient will be evaluated for further management. 1238: I reviewed the patient's case with Dr. Kirkpatrick- [facility] hospitalist. He will evaluate the patient for further management. Medical Decision Differential diagnoses includes but is not limited to acute coronary syndrome, myocardial infarction, pericarditis, pulmonary embolus, aortic dissection, pneumonia, pneumothorax, musculoskeletal, shingles, esophageal. Patient is a 77-year-old female who presents the ER for chest pain associated with shortness of breath. She initially came in that she was concerned for possible stroke that she notes she was dizzy and has had to use previous strokes. She also notes that she had some right arm tingling. She is completely neurologically intact. CBC along with BMP, LFTs, bilirubin and troponin were unremarkable with the exception of a slightly elevated bili at 1.1 CT head was negative. Chest x-ray unremarkable. EKG was nondiagnostic and unchanged. She was given nitro and had complete resolution of her chest pain. Discussed with hospitalist and patient will be observed overnight for chest pain. Medication Reconcilliation Current Medication List: was personally reviewed by me Blood Pressure Screening Patient's blood pressure: Elevated blood pressure Will be further monitored by the hospitalist. Consults Time Called: 1209 Consulting Physician: Dr. Sis HARVEY hospitalist Returned Call: 1238 I reviewed the patient's case with Dr. Sis HARVEY hospitalist. He will evaluate the patient for further management. Impression Primary Impression: Precordial chest pain Additional Impression: Dizziness Scribe Attestation The scribe's documentation has been prepared under my direction and personally reviewed by me in its entirety. I confirm that the note above accurately reflects all work, treatment, procedures, and medical decision making performed by me. Departure Information Dispostion Being Evaluated By Hospitalist Referrals Cuong Rice M.D. (PCP) Patient Instructions [facility] Problem Qualifiers
[2017-12-22 11:40] LABS: BASO % 0.1 %; BASO ABS # 0.01 K/uL (0-0.2); EOS % 0.1 %; EOS ABS # 0.01 K/uL (0-0.5); HEMATOCRIT 37.4 % (37-47); IG# 0.14 K/uL (0.00-0.02); LYMPH % 11.3 %; LYMPH ABS # 0.76 K/uL (1.2-3.4); MEAN CELL VOLUME 100.8 fL (80-100); MEAN CORPUSCULAR HEMOGLOBIN 32.3 pg (25-34); MEAN CORPUSCULAR HGB CONC 32.1 g/dl (32-36); MEAN PLATELET VOLUME 9.2 fL (7.4-10.4); MONO % 7.3 %; MONO ABS # 0.49 K/uL (0.11-0.59); NEUT % 79.1 %; NEUT ABS # 5.32 K/uL (1.4-6.5); PLATELET COUNT 129 K/uL (130-400); RED CELL DISTRIBUTION WIDTH CV 16.8 % (11.5-14.5); RED CELL DISTRIBUTION WIDTH SD 61.4 fL (36.4-46.3); WHITE BLOOD COUNT 6.73 K/uL (4.8-10.8)
--- NOTE | 2017-12-22 11:50 | DIAGNOSTIC IMAGING REPORT ---
CT HEAD WITHOUT CONTRAST (CT) CLINICAL HISTORY: Headache and dizziness. History of stroke. COMPARISON STUDY: 11/07/2017 TECHNIQUE: Axial CT of the brain is performed from the vertex to the skull base. IV contrast was not administered for this examination. A dose lowering technique was utilized adhering to the principles of ALARA. CT DOSE: 537.48 mGy.cm FINDINGS: No intra or extra-axial mass lesions are visualized. There is no CT evidence of acute cortical infarction. There is no evidence of midline shift. There is no acute hemorrhage. No calvarial fractures are visualized. There are patchy white matter hypodensities likely on a small vessel basis. There is an old right temporal occipital infarct. There is no evidence of pathologic ventricular dilatation. There is no evidence of acute sinusitis IMPRESSION: Old post infarct changes. No acute intracranial findings. Electronically signed by: Sam Lopes M.D. 12/22/2017 11:49 AM Dictated Date/Time: 12/22/2017 11:47 AM
[2017-12-22] MEDS ORDERED: SODIUM CHLORIDE 0.9% 500ML 500 ML IV STA (11:56)
--- NOTE | 2017-12-22 11:57 | DIAGNOSTIC IMAGING REPORT ---
CHEST ONE VIEW PORTABLE CLINICAL HISTORY: Chest Pain dyspnea COMPARISON STUDY: 11/07/2017 FINDINGS: Operative findings consistent with a prior median sternotomy. Calcification mitral annulus. Lungs are clear. Chronic platelike atelectasis right base. IMPRESSION: Chronic and postoperative change. No acute process. The above report was generated using voice recognition software. It may contain grammatical, syntax or spelling errors. Electronically signed by: Slava Strong M.D. 12/22/2017 11:56 AM Dictated Date/Time: 12/22/2017 11:56 AM
[2017-12-22 12:04] LABS: ALBUMIN 3.4 gm/dl (3.4-5.0); ALKALINE PHOSPHATASE 50 U/L (45-117); ALT/SGPT 28 U/L (12-78); AST/SGOT 26 U/L (15-37); BLOOD UREA NITROGEN 18 mg/dl (7-18); CALCIUM 8.8 mg/dl (8.5-10.1); CARBON DIOXIDE 27 mmol/L (21-32); CKMB 1.4 ng/ml (0.5-3.6); CREATININE 0.86 mg/dl (0.60-1.20); GLUCOSE 145 mg/dl (70-99); SODIUM 135 mmol/L (136-145); TOTAL PROTEIN 7.3 gm/dl (6.4-8.2)
[2017-12-22] MEDS ORDERED: POLYETHYLENE (MIRALAX) 17 GM PACK PO PRN (13:00)
[2017-12-22] MEDS ORDERED: MAGNESIUM HYDROXIDE SUSP 30 ML UDC PO PRN (13:00)
[2017-12-22] MEDS ORDERED: ACETAMINOPHEN 325 MG TAB PO PRN (13:00)
[2017-12-22] MEDS ORDERED: ONDANSETRON INJ 2 MG/ML 2 ML VIAL IV PRN (13:00)
[2017-12-22] MEDS ORDERED: ALUMINUM/MAGNESIUM/SIMETH (MAALOX MAX) 30 ML UDC PO PRN (13:00)
--- NOTE | 2017-12-22 13:13 | History and Physical ---
History & Physical Date & Time of Service: Dec 22, 2017 at 13:08 Chief Complaint: Sent By Dr Chavez For Possible Stroke Primary Care Physician: Cuong Chavez M.D. Past Medical/Surgical History Medical Problems: (1) Ambulatory dysfunction (2) Atrial fibrillation (3) Basal cell carcinoma (4) Complicated UTI (urinary tract infection) (5) Compression fracture (6) Congestive heart failure (7) Coronary artery disease (8) Dizziness (9) Dyspnea (10) Fracture of greater trochanter of right femur (11) GERD (gastroesophageal reflux disease) (12) Headache (13) Hip fracture due to osteoporosis (14) History of CVA (cerebrovascular accident) (15) History of hysterectomy (16) Hypercholesterolemia (17) Hypertension (18) Hypoxia (19) Intermittent confusion (20) Intractable low back pain (21) Lumbar radiculopathy (22) Metabolic encephalopathy (23) Murmur, cardiac (24) On prednisone therapy (25) Osteoarthritis (26) Osteoporosis, unspecified (27) Peripheral vision loss (28) Rheumatoid arthritis (29) Right Knee DJD (30) Skin tear of right elbow without complication (31) Weakness Surgical Problems: (1) History of bilateral hip arthroplasty (2) History of bilateral knee arthroplasty (3) History of heart valve replacement (4) History of shoulder surgery (5) Status post Mohs surgery for basal cell carcinoma Family History FH: breast cancer FHx: rheumatoid arthritis Heart disease Social History Smoking Status: Never Smoker Drug Use: none Marital Status: Housing status: lives with significant other Occupational Status: retired Immunizations History of Influenza Vaccine: Yes Influenza Vaccine Date: Feb 23, 2013 History of Tetanus Vaccine?: Unknown Tetanus Immunization Date: Mar 23, 2009 History of Pneumococcal: Yes Pneumococcal Date: Feb 21, 2011 History of Hepatitis B Vaccine: Unknown Allergies Coded Allergies: Aspirin (Verified Allergy, Unknown, Hives, 12/22/17) Celecoxib (Verified Allergy, Unknown, UNKNOWN, 12/22/17) Pt does not know if she's allergic- doesn't remember being told this is an allergy Sulfa Antibiotics (Verified Allergy, Unknown, Unknown rxn, 12/22/17) Pt does not know if she is allergic to this- unsure how it is on her list Oxycodone (Verified Adverse Reaction, Mild, "GETS NERVOUS", 12/22/17) Home Medications Scheduled Adalimumab (Humira Pen), 1 DOSE INJ [id number] Apixaban (Eliquis), 5 MG PO BID Atorvastatin (Lipitor), 20 MG PO NOON Calcium Carbonate-Vitamin D (Calcium + D3 600-200 mg-Unit), 1 TAB PO BID Clonazepam (Klonopin), 0.5 MG PO NOON Duloxetine Hcl (Cymbalta), 30 MG PO QAM Ergocalciferol (Vitamin D), 1 TAB PO BID Folic Acid (Folvite), 1 TAB PO NOON Home O2 Therapy (Oxygen), 2 LITERS NA HS Lidocaine (Lidocaine), 1 DOSE TOP UD Methotrexate (Methotrexate), 10 MG PO WK Metoprolol Succ (Toprol Xl) (Toprol-Xl ), 100 MG PO QAM Morphine Sulfate Ir (Morphine Sulfate Ir), 15 MG PO TID Pantoprazole (Protonix), 40 MG PO NOON Prednisone (Prednisone), 2 MG PO HS Prednisone (Prednisone), 20 MG PO QAM Prednisone (Prednisone), 5 MG PO NOON Quetiapine Fumarate (Seroquel), 50 MG PO HS Senna (Senokot), 1 TAB PO QPM Scheduled PRN Acetaminophen (Tylenol), 500 MG PO Q4H PRN for Pain or Fever Alprazolam (Xanax), 0.5 MG PO Q6H PRN for Anxiety Pramipexole Dihydrochloride (Mirapex), 0.125 MG PO HS PRN for RESTLESS LEGS Physical Exam Vital Signs Date Time Temp Pulse Resp B/P (MAP) Pulse Ox O2 Delivery O2 Flow Rate FiO2 12/22/17 12:53 71 18 155/84 94 Nasal Cannula 2.0 12/22/17 11:53 75 20 96/59 92 Room Air 12/22/17 11:48 67 22 153/82 92 Room Air 12/22/17 11:32 65 12/22/17 11:14 37.0 71 18 126/79 95 Room Air Diagnostics Laboratory Results Results Past 24 Hours Test 12/22/17 11:31 Range/Units White Blood Count 6.73 4.8-10.8 K/uL Red Blood Count 3.71 4.2-5.4 M/uL Hemoglobin 12.0 12.0-16.0 g/dL Hematocrit 37.4 37-47 % Mean Corpuscular Volume 100.8 80-100 fL Mean Corpuscular Hemoglobin 32.3 25-34 pg Mean Corpuscular Hemoglobin Concent 32.1 32-36 g/dl Platelet Count 129 130-400 K/uL Mean Platelet Volume 9.2 7.4-10.4 fL Neutrophils (%) (Auto) 79.1 % Lymphocytes (%) (Auto) 11.3 % Monocytes (%) (Auto) 7.3 % Eosinophils (%) (Auto) 0.1 % Basophils (%) (Auto) 0.1 % Neutrophils # (Auto) 5.32 1.4-6.5 K/uL Lymphocytes # (Auto) 0.76 1.2-3.4 K/uL Monocytes # (Auto) 0.49 0.11-0.59 K/uL Eosinophils # (Auto) 0.01 0-0.5 K/uL Basophils # (Auto) 0.01 0-0.2 K/uL RDW Standard Deviation 61.4 36.4-46.3 fL RDW Coefficient of Variation 16.8 11.5-14.5 % Immature Granulocyte % (Auto) 2.1 % Immature Granulocyte # (Auto) 0.14 0.00-0.02 K/uL Sodium Level 135 136-145 mmol/L Potassium Level 4.0 3.5-5.1 mmol/L Chloride Level 101 98-107 mmol/L Carbon Dioxide Level 27 21-32 mmol/L Anion Gap 8.0 3-11 mmol/L Blood Urea Nitrogen 18 7-18 mg/dl Creatinine 0.86 0.60-1.20 mg/dl Estimated GFR () 75.0 Estimated GFR (Non- 64.7 BUN/Creatinine Ratio 20.8 10-20 Random Glucose 145 70-99 mg/dl Calcium Level 8.8 8.5-10.1 mg/dl Total Bilirubin 1.1 0.2-1 mg/dl Direct Bilirubin 0.3 0-0.2 mg/dl Aspartate Amino Transf (AST/SGOT) 26 15-37 U/L Alanine Aminotransferase (ALT/SGPT) 28 12-78 U/L Alkaline Phosphatase 50 45-117 U/L Total Creatine Kinase 20 26-192 U/L Creatine Kinase MB 1.4 0.5-3.6 ng/ml Creatine Kinase MB Ratio 7.0 0-3.0 Troponin I < 0.015 0-0.045 ng/ml Total Protein 7.3 6.4-8.2 gm/dl Albumin 3.4 3.4-5.0 gm/dl Impression Assessment and Plan 140422 Resuscitation Status VTE Prophylaxis Will order VTE Prophylaxis: Yes
[2017-12-22] MEDS ORDERED: CLONAZEPAM 0.5 MG TAB PO SCH ×2 (13:15→13:42)
[2017-12-22] MEDS ORDERED: PRAMIPEXOLE DIHYDROCHLORIDE 0.25MG TAB PO PRN (13:15)
[2017-12-22] MEDS ORDERED: ALPRAZOLAM 0.5 MG TAB PO PRN (13:15)
--- NOTE | 2017-12-22 14:22 | HISTORY & PHYSICAL EXAMINATION ---
DATE OF ADMISSION: 12/22/2017 CHIEF COMPLAINT: Multiple complaints, headache and chest pain. HISTORY OF PRESENT ILLNESS: The patient is a 77-year-old female who presents having been sent by her PCP for possible stroke. She notes that her HPI starts in the middle of the night where she actually woke up with chest pain. She has a very difficult time describing the chest pain. Maybe it is a little bit of a tightness. It does seem to make her short of breath, it comes and goes, maybe in 30-minute intervals, [id number]; it comes on whenever she starts thinking about her daughter having brain surgery today and seems to just go away spontaneously. She denies overt shortness of breath but seems to refer loosely to a degree of shortness of breath when the pain is there, either alleviated when the pain is gone or by using her oxygen is not entirely clear. The pain is kind of right in the middle of her chest. Otherwise, she is a fairly difficult historian and there is not a whole lot else I am able to glean about the chest pain other than that it is also gone at this point, Secondarily, but also kind of equally primary is her noting that she feels like she is having a stroke, but whenever asked to describe this, she notes that it is a headache that she woke up with, it is bifrontal, it is not the worst headache of her life. She is a little bit of right shoulder pain but absolutely no new numbness, weakness or visual changes. She does have right eye visual changes, but they are chronic, which seem to relate to a prior stroke and she notes there is absolutely nothing new or different about those. REVIEW OF SYSTEMS: Otherwise entirely negative except for as above. 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 PAST SURGICAL HISTORY: Most relevantly is her AVR and her joint surgeries as above noted. FAMILY HISTORY: Apparently includes coronary artery disease. SOCIAL HISTORY: She lives at home, maintaining her independence, but it appears she has a good bit of family support. She is not a smoker. No significant alcohol or drugs. ALLERGIES: INCLUDE ASPIRIN, CELEBREX, SULFA, AND OXYCODONE. MEDICATIONS: Only really able to be gleaned through the med rec are listed as Tylenol, Humira, Xanax, Eliquis, Lipitor, calcium, vitamin D, Klonopin, Cymbalta, vitamin D, folate, oxygen at bedtime 2 L, lidocaine patches, methotrexate, Toprol-XL, morphine sulfate scheduled, Protonix, Mirapex, chronic prednisone, Seroquel, and Senokot. PHYSICAL EXAMINATION: VITAL SIGNS: Temperature 37, pulse 71, respiratory rate 18, blood pressure 126/79, and 95% on room air. GENERAL: She is awake, alert, oriented x3, anxious but no acute distress. HEENT: Normocephalic, atraumatic. Mucous membranes are moist. CARDIOVASCULAR: Regular without rubs, murmurs, or gallops. LUNGS: Clear to auscultation bilaterally. No rales, rhonchi, or wheezes with vigorous effort. ABDOMEN: Soft, nondistended, nontender, no masses or organomegaly. EXTREMITIES: Show no cyanosis, clubbing or edema. No calf tenderness. SKIN: Shows no rashes, no pallor or icterus. NEUROLOGIC: Shows no focal deficits except for right eye strabismus and vision loss which the patient and her granddaughter both noted to be chronic and unchanged. She shows no other focal neuromotor or sensory deficits and has equal strength in bilateral upper and lower extremities. Musculoskeletal/osteopathic structural exam shows significant ulnar deviation and maybe a little bit of swan neck deformities of her fingers, mild degree of muscle wasting in that respect and rather exquisite right greater than left bilateral suboccipital tenderness. Inhibitory pressure and a little gentle and winding was done with a degree of tissue texture changes, although the headache did not necessarily change. MENTAL STATUS: Shows a degree of anxiety, fair recent and remote recall, apparently related to the anxiety, anxious but pleasant mood and affect. LABS AND DIAGNOSTICS: Her EKG is left bundle, which is chronic. CBC shows a white count of 6.73, hemoglobin 12, platelets 129, MCV of about 100, which is chronic. She had a reasonably recent B12 and folate levels which were okay. Sodium is 135, potassium 4, chloride 101, CO2 27, BUN 18, creatinine 0.86, calcium 8.8, glucose 145. Total bilirubin 1.1, AST 26, ALT 28, alkaline phosphatase 50. CK total of 20 with an MB of 1.4. Troponin of less than 0.015. Total protein 7.3, albumin 3.4. Her chest x-ray shows a little bit of right base atelectasis but no acute disease. Her head CT shows old stroke, but no acute changes. ASSESSMENT AND PLAN: 1. Concern on stroke given that she has no focal neuro deficits and no new visual changes and her complaint is the headache, but not the worst headache of her life without any visual changes and her head CT is negative for bleed, it appears that any kind of stroke or stroke-like illness seems highly unlikely here. About 6 weeks ago, she had an extensive stroke workup; risk factors were modified and again with no true stroke or TIA-type symptoms. At this point will simply follow her. 2. Chest pain. She believes her chest pain is anxiety related. I tend to believe she is right; however, given her risks, we are obligated to rule out any kind of unstable angina. We will check serial cardiac enzymes given her age and frailty. I am not sure that we gain her a lot of benefit with the stress test, so I will consult cardiology to help determine stress test versus outpatient followup. 3. Headache. This appears to be a stress-induced muscle tension headache. Will use ice packs and Voltaren gel to her suboccipitals, her chronic pain meds and OMT as above. 4. Somatic dysfunction in cervical region. OMT as above. 5. Rheumatoid arthritis. Continue her home meds. 6. Deep venous thrombosis prophylaxis, Lovenox. 7. Anxiety reassurance, rule out any significant frightening illnesses and otherwise as above. MTDD
[2017-12-22 15:12] VITALS: BP 166/95; PULSE 78; TEMP 37.1; O2SAT 91; Ht 157.5 cm; Wt 58.4 kg
[2017-12-22] MEDS ORDERED: IV FLUIDS COMPLETED PRN (15:45)
[2017-12-22] MEDS: ACETAMINOPHEN 500 MG TAB PO PRN (16:05)
[2017-12-22] MEDS: MoRPHine SULFATE IR 15 MG TAB (IMMEDIATE RELEASE) PO SCH ×2 (16:07→21:25)
[2017-12-22] MEDS: PANTOprazole SOD 40 MG TAB PO SCH (16:11)
[2017-12-22] MEDS ORDERED: CLONAZEPAM 0.5 MG TAB PO PRN (18:00)
[2017-12-22] MEDS ORDERED: DICLOFENAC SOD 1% GEL 100 GM TUBE EXT ONE (18:30)
[2017-12-22 19:12] VITALS: BP 117/66; PULSE 69; TEMP 36.8; O2SAT 90
[2017-12-22] MEDS ORDERED: QUETIAPINE FUMARATE 25 MG TAB PO SCH (21:00)
[2017-12-22] MEDS ORDERED: SENNA 8.6 MG TAB PO SCH (21:00)
[2017-12-22] MEDS: CALCIUM 600MG + VIT D 400 IU TAB PO SCH (21:09)
[2017-12-22] MEDS: APIXABAN 5 MG TAB PO SCH (21:09)
[2017-12-22] MEDS: CHOLECALCIFEROL 1000 INTER.UNIT TAB PO SCH (21:10)
[2017-12-22] MEDS: DICLOFENAC SOD 1% GEL 100 GM TUBE EXT SCH (21:26)
[2017-12-23 00:04] VITALS: BP 125/79; PULSE 74; TEMP 37; O2SAT 96
[2017-12-23 03:19] VITALS: BP 151/82; PULSE 77; TEMP 36.6; O2SAT 97
[2017-12-23] MEDS: ACETAMINOPHEN 500 MG TAB PO PRN ×2 (05:26→12:09)
[2017-12-23 08:00] VITALS: BP 164/95; PULSE 68; TEMP 36.8; O2SAT 97
[2017-12-23] MEDS: MoRPHine SULFATE IR 15 MG TAB (IMMEDIATE RELEASE) PO SCH ×2 (08:11→13:23)
[2017-12-23] MEDS: DICLOFENAC SOD 1% GEL 100 GM TUBE EXT SCH ×3 (08:12→16:59)
[2017-12-23] MEDS: CHOLECALCIFEROL 1000 INTER.UNIT TAB PO SCH (08:12)
[2017-12-23] MEDS: CALCIUM 600MG + VIT D 400 IU TAB PO SCH (08:12)
[2017-12-23] MEDS ORDERED: DULOXETINE (CYMBALTA) 30 MG CAP PO SCH (09:00)
[2017-12-23] MEDS ORDERED: LIDODERM (LIDOCAINE) PATCH 5% TD SCH (09:00)
[2017-12-23] MEDS ORDERED: ATORVASTATIN 20 MG TAB PO SCH (09:00)
[2017-12-23] MEDS ORDERED: METOPROLOL SUCC 50MG EXT REL TAB PO SCH (09:00)
[2017-12-23] MEDS ORDERED: METOPROLOL SUCC 25MG EXT REL TAB PO SCH (09:45)
[2017-12-23] MEDS: APIXABAN 5 MG TAB PO SCH (09:59)
[2017-12-23] MEDS: PANTOprazole SOD 40 MG TAB PO SCH (11:24)
[2017-12-23 11:26] VITALS: BP 147/82; PULSE 73; TEMP 36.8; O2SAT 95
--- NOTE | 2017-12-23 11:54 | CARDIOLOGY CONSULTATION ---
DATE OF CONSULTATION: 12/23/2017 REQUESTING PHYSICIAN: Navjot Kirkpatrick DO [employer] OPERATOR: Yovanny Best DO, [facility]. REASON FOR CONSULTATION: Chest discomfort and palpitations, headache. The patient is concerned she may be having a stroke. Dear Navjot: Thank you for requesting a cardiology consultation on Rosetta. As you know, she is a very frail 77-year-old female who has a longstanding cardiac history and 2 prior strokes. She is under a significant amount of stress, which has led to increased anxiety. She notes that her 18-year-old granddaughter was killed in a motor vehicle accident within the last couple weeks. She also notes that one of her daughters is undergoing brain surgery for a tumor. In addition to her own medical problems, this is weighing very heavily on her. She was at her primary care provider's office yesterday noting a headache. She also describes palpitations which she describes as fluttering lasting a couple of minutes. With the fluttering, she describes some vague chest discomfort along with the fact that the fluttering makes her very anxious. She also notes that it may make her short of breath if she lays down, it usually goes away by the time she wakes up. She does walk with a walker. She denies any chest pain or chest pressure with activity or increasing shortness of breath with activity. There is no associated diaphoresis. She does have nausea at home. She describes a bifrontal headache, but denies any additional weakness one side or the other or visual changes. She has had a history of paroxysmal atrial tachycardia along with paroxysmal atrial fibrillation. She has easy bruising on anticoagulation and this has been a long-term problem for her. Additionally, she is chronically immunosuppressed and on steroids. Her appetite has been so-so, although this morning, she notes the nausea. She has had this resolved. She also describes some dizziness as vertiginous in nature. She has a residual vision loss in her right eye and this along with her blindness in her left eye. She has chronic back discomfort and myofascial pain with a history of multiple compression fractures and osteoarthritis. REVIEW OF SYSTEMS: The rest of review of systems is otherwise negative. She is somewhat tearful today in talking to her. She also notes that she feels rather anxious in light of everything that is ongoing. PAST MEDICAL HISTORY: 1. Status post bioprosthetic aortic valve replacement in 2010 at the [facility] with a negative cardiac catheterization preoperatively. 2. Recent echocardiogram 10/2017 with normal left ventricular size and function, normal gradients across the aortic valve prosthesis, severe mitral annular calcification. 3. History of paroxysmal atrial fibrillation and paroxysmal atrial tachycardia. 4. History of a CVA prior to open heart surgery. 5. History of retinal artery occlusion. 6. Hypertension. 7. History of migraines. 8. Anxiety. 9. History of bilateral hip replacements. 10. Status post left total knee replacement. 11. Status post right shoulder replacement. 12. Osteoporosis. MEDICATIONS: Reviewed in electronic medical record. ALLERGIES: ASPIRIN CAUSED HIVES, CELEBREX, OXYCODONE, AND SULFA ANTIBIOTICS. FAMILY HISTORY: Dad at 84 of unknown cardiac conditions. Mom is and had complications from rheumatoid arthritis. PHYSICAL EXAMINATION: GENERAL: She is awake, alert, oriented x3. She is somewhat tearful. VITAL SIGNS: Her heart rate is 77, respirations 18, blood pressure 151/82, her sats 97% on 2 liters. HEENT: 2+ carotid upstrokes. No evidence of carotid bruits. Jugular venous pressure appeared normal. Sclerae are anicteric. Her hearing is normal. LUNGS: Clear to auscultation bilaterally. No rales, rhonchi or wheezing. HEART: Regular rate and rhythm. There is a soft systolic ejection murmur at the right sternal border which is early to mid peaking. S2 is present. ABDOMEN: Soft, nontender, nondistended. Positive bowel sounds. EXTREMITIES: No clubbing, cyanosis or edema. PSYCHIATRIC: She appeared tearful. DIAGNOSTIC STUDIES: CT of her head was negative for an acute stroke. EKG, normal sinus rhythm, left bundle branch block. Chest x-ray, prior median sternotomy, mitral annular calcification. Her lungs are clear. Her troponins are negative x3. Her sodium 135, potassium 4.0, BUN 18, creatinine 0.86. Hemoglobin of 12, platelet count of 129. Echocardiogram from her last admission 10/2017, normal biventricular size and function, EF greater than 70%, severe left ventricular hypertrophy, moderate left atrial enlargement, severe mitral annular calcification, mild to moderate mitral regurgitation, normal pulmonary artery pressures. IMPRESSION: 1. Chest pain and chest pressure associated with palpitations. 2. Status post bioprosthetic aortic valve replacement in 2010 with normal gradients across the prosthesis, October 2017. 3. No evidence of epicardial coronary artery disease preoperatively. 4. History of paroxysmal atrial fibrillation and paroxysmal atrial tachycardia. 5. History of multiple strokes, currently on 5 mg of apixaban b.i.d. as an outpatient, before her October admission, she was on 2.5 mg b.i.d., given the fact that her weight was less than 60 kilos, and although her age was not 79 or above given her significant bruising, we had reduced the dose. As I discussed with Rosetta and reviewed in her monitor, she did have a short burst of PAT last night, it is possible that she is having atrial arrhythmias that are then leading to palpitations which subsequently lead to chest pain and worsening anxiety. I would increase her Toprol from 100 mg a day to 125 mg a day. If she has persistent palpitations, we may need to consider antiarrhythmic therapy. Her troponins are negative. Her EKG is consistent with a chronic left bundle-branch block, and given how frail she is, I would recommend even if we thought she had coronary disease to treat her medically. She would be a very difficult cardiac catheterization candidate. She is intolerant of aspirin. Performing a catheterization on someone this frail is very difficult. I do believe she needs some help with her underlying anxiety, especially in light of the significant ongoing stressors in her life. Thank you for allowing us to participate in her care. All this was discussed with Rosetta.
[2017-12-23] MEDS ORDERED: TPRSR25 PO (14:28)
--- NOTE | 2017-12-23 14:29 | Discharge Instructions ---
Discharge Instructions Date of Service Dec 23, 2017. Admission Reason for Admission: Chest Pain, Headache Discharge Discharge Diagnosis / Problem: Chest pain/ headache Discharge Goals Goal(s): Decrease discomfort, Improve function Activity Recommendations Activity Limitations: resume your previous activity . Instructions / Follow-Up Instructions / Follow-Up Followup with PCP IN 1-2 WEEKS. Current Hospital Diet Patient's current hospital diet: Regular Diet Discharge Diet Recommended Diet: Regular Diet Pending Studies Studies pending at discharge: no Medical Emergencies . Who to Call and When: Medical Emergencies: If at any time you feel your situation is an emergency, please call 911 immediately. . Non-Emergent Contact Non-Emergency issues call your: Primary Care Provider Call Non-Emergent contact if: you have any medication questions . . "Provider Documentation" section prepared by Bud Gee. .
[2017-12-23 14:32] VITALS: BP 147/82; PULSE 73; TEMP 36.8; O2SAT 95
[2017-12-23 15:29] VITALS: BP 104/73; PULSE 134; TEMP 36.4; O2SAT 96
--- NOTE | 2017-12-25 07:32 | Discharge Summary ---
Discharge Summary Date of Service Dec 23, 2017. Discharge Summary Admission Date: Dec 22, 2017 at 13:01 Discharge Date: Dec 23, 2017 Discharge Disposition: Home with services Principal Diagnosis: Anxiety/chest pain/palpitations Immunizations: Have You Had Influenza Vaccine: Yes Influenza Vaccine Date: Feb 23, 2013 History of Tetanus Vaccine?: Unknown Tetanus Immunization Date: Mar 23, 2009 History of Pneumococcal: Yes Pneumococcal Date: Feb 21, 2011 History of Hepatitis B Vaccine: Unknown Medication Reconciliation New Medications: Metoprolol Succinate (Metoprolol Succinate ER) 25 Mg Tabcr 25 MG PO QAM for 90 Days, #90 TAB Take 25mg once daily with the 100mg dose in the morning for a total of 125 mg daily. Continued Medications: Acetaminophen (Tylenol) 500 Mg Tab 500 MG PO Q4H PRN for Pain or Fever, TAB Adalimumab (Humira Pen) 40 Mg/0.8 Ml Kit 1 DOSE INJ [id number] PT WILL CHECK WITH DR AJ Alprazolam (Xanax) 0.5 Mg Tab 0.5 MG PO Q6H PRN for Anxiety, TAB Apixaban (Eliquis) 5 Mg Tab 5 MG PO BID, TAB PER SPOUSE-INSTRUCTED BY SURGEON TO REMAIN ON FOR SURG Atorvastatin (Lipitor) 20 Mg Tab 20 MG PO NOON, TAB Calcium Carbonate-Vitamin D (Calcium + D3 600-200 mg-Unit) 1 Tab Tab 1 TAB PO BID Clonazepam (Klonopin) 0.5 Mg Tab 0.5 MG PO NOON, TAB Duloxetine Hcl (Cymbalta) 30 Mg Cap 30 MG PO QAM, CAP Ergocalciferol (Vitamin D) 2,000 Unit Cap 1 TAB PO BID Folic Acid (Folvite) 1 Mg Tab 1 TAB PO NOON, TAB EXCEPT ON METHOTREXATE DAYS Home O2 Therapy (Oxygen) Gas 2 LITERS NA HS Lidocaine (Lidocaine) 1 Patch Tdsy 1 DOSE TOP UD 5% Methotrexate (Methotrexate) 2.5 Mg Tab 10 MG PO WK, TAB SUNDAYS Metoprolol Succ (Toprol Xl) (Toprol-Xl ) 100 Mg Tabcr 100 MG PO QAM, TAB Morphine Sulfate Ir (Morphine Sulfate Ir) 15 Mg Tab 15 MG PO TID, TAB Pantoprazole (Protonix) 40 Mg Tab 40 MG PO NOON, TAB Pramipexole Dihydrochloride (Mirapex) 0.125 Mg Tab 0.125 MG PO HS PRN for RESTLESS LEGS, TAB Prednisone (Prednisone) 1 Mg Tab 2 MG PO HS, TAB Prednisone (Prednisone) 20 Mg Tab 20 MG PO QAM, #30 TAB Prednisone (Prednisone) 5 Mg Tab 5 MG PO NOON, TAB Quetiapine Fumarate (Seroquel) 50 Mg Tab 50 MG PO HS Senna (Senokot) 8.6 Mg Tab 1 TAB PO QPM, TAB Discharge Exam Physical Exam: GENERAL: She is awake, alert, oriented x3, anxious but no acute distress. HEENT: Normocephalic, atraumatic. Mucous membranes are moist. CARDIOVASCULAR: Regular without rubs, murmurs, or gallops. LUNGS: Clear to auscultation bilaterally. No rales, rhonchi, or wheezes with vigorous effort. ABDOMEN: Soft, nondistended, nontender, no masses or organomegaly. EXTREMITIES: Show no cyanosis, clubbing or edema. No calf tenderness. SKIN: Shows no rashes, no pallor or icterus. NEUROLOGIC: Shows no focal deficits MENTAL STATUS: pleasant mood and affect with degree of anxiety. Review of Systems: Constitutional: No fever Eyes: No worsening of vision ENT: No hearing loss Respiratory: No cough Cardiovascular: + chest pain Abdomen: No pain Musculoskeletal: No joint pain Genitourinary - Male: No hematuria Neurologic: No vertigo Psychiatric: + anxiety Endocrine: + fatigue Hematologic / Lymphatic: No abnormal bleeding/bruising Integumentary: No rash Hospital Course HPI: The patient is a 77-year-old female who presents having been sent by her PCP for possible stroke. She notes that her HPI starts in the middle of the night where she actually woke up with chest pain. She has a very difficult time describing the chest pain. Maybe it is a little bit of a tightness. It does seem to make her short of breath, it comes and goes, maybe in 30-minute intervals, [id number]; it comes on whenever she starts thinking about her daughter having brain surgery today and seems to just go away spontaneously. She denies overt shortness of breath but seems to refer loosely to a degree of shortness of breath when the pain is there, either alleviated when the pain is gone or by using her oxygen is not entirely clear. The pain is kind of right in the middle of her chest. Otherwise, she is a fairly difficult historian and there is not a whole lot else I am able to glean about the chest pain other than that it is also gone at this point, Secondarily, but also kind of equally primary is her noting that she feels like she is having a stroke, but whenever asked to describe this, she notes that it is a headache that she woke up with, it is bifrontal, it is not the worst headache of her life. She is a little bit of right shoulder pain but absolutely no new numbness, weakness or visual changes. She does have right eye visual changes, but they are chronic, which seem to relate to a prior stroke and she notes there is absolutely nothing new or different about those. Hospital Course Patient was evaluated for the following. 1. Chest pain and chest pressure associated with palpitations. 2. Status post bioprosthetic aortic valve replacement in 2010 with normal gradients across the prosthesis, October 2017. 3. No evidence of epicardial coronary artery disease preoperatively. 4. History of paroxysmal atrial fibrillation and paroxysmal atrial tachycardia. 5. History of multiple strokes, currently on 5 mg of apixaban b.i.d. as an outpatient, before her October admission, she was on 2.5 mg b.i.d., given the fact that her weight was less than 60 kilos, and although her age was not 79 or above given her significant bruising, we had reduced the dose. While patient was on monitor, she had a burst of PAT. Patient rosalie has a component of anxiety which is causing her palpatations. After discussing with cardiology, will increase her Toprol from 100 mg a day to 125 mg a day. Appreciate cardio input: If she has persistent palpitations, we may need to consider antiarrhythmic therapy. Her troponins are negative. Her EKG is consistent with a chronic left bundle-branch block, and given how frail she is, I would recommend even if we thought she had coronary disease to treat her medically. She would be a very difficult cardiac catheterization candidate. She is intolerant of aspirin. Performing a catheterization on someone this frail is very difficult. Patient is ok to be discharged and cardiology agrees. Family will be able to take care of patient. Patient agreed to increasing home health visits. Other issues that were discussed during stay included: Headache. This appears to be a stress-induced muscle tension headache. Will use ice packs and Voltaren gel to her suboccipitals, her chronic pain meds and OMT as above. Somatic dysfunction in cervical region. OMT as above. Rheumatoid arthritis. Continue her home meds. Deep venous thrombosis prophylaxis, Lovenox. Total Time Spent: Greater than 30 minutes This includes examination of the patient, discharge planning, medication reconciliation, and communication with other providers. Discharge Instructions Please refer to the electronic Patient Visit Report (Discharge Instructions) for additional information. Follow-Up As noted on discharge instructions. Additional Copies To Cuong Chavez M.D.
[2017-12-28] MEDS ORDERED: METHOTREXATE 2.5 MG TAB PO SCH (07:00)
== END 2017-12-23 17:44 | disposition home health service (06) ==
LOC: C.EDB 11:09 → C.2T 13:01 → ENRESERV 13:12
PROVIDERS: ADMIT Family Medicine; ATTEND Family Medicine
DX: F41.9 Anxiety disorder, unspecified (principal); R07.9 Chest pain, unspecified; R00.2 Palpitations; M06.9 Rheumatoid arthritis, unspecified; E78.00 Pure hypercholesterolemia, unspecified; I25.10 Atherosclerotic heart disease of native coronary artery without angina pectoris; I48.91 Unspecified atrial fibrillation; K21.9 Gastro-esophageal reflux disease without esophagitis; I10 Essential (primary) hypertension; Z79.899 Other long term (current) drug therapy; Z79.01 Long term (current) use of anticoagulants; Z88.6 Allergy status to analgesic agent; Z88.2 Allergy status to sulfonamides; Z88.5 Allergy status to narcotic agent; Z86.718 Personal history of other venous thrombosis and embolism; Z85.828 Personal history of other malignant neoplasm of skin; Z86.73 Personal history of transient ischemic attack (TIA), and cerebral infarction without residual deficits; Z82.49 Family history of ischemic heart disease and other diseases of the circulatory system

== ENCOUNTER → 2017-12-26 | Outpatient (CLI) | payer BC ==
[~2017-12-26] MED LIST changes: +ALPR0.5T PO; +CALC200S6; +TPRSR25 PO; +TURM1CAP4 PO
--- NOTE | 2017-12-26 14:15 | DIAGNOSTIC IMAGING REPORT ---
THORACIC SPINE 3 VIEWS ROUTINE HISTORY: 77 years-old Female M81.0 [id number] Acute thoracic back painAcute thoracic b acute mid thoracic spine pain COMPARISON: Thoracic spine radiographs 02/12/2017 TECHNIQUE: 3 views of the thoracic spine FINDINGS: Cardiac silhouette is enlarged. Mitral annular calcifications are present. Calcification of the aorta. Prior median sternotomy with prosthetic aortic valve. Shoulder arthroplasty partially imaged. Demineralized appearance of the bones. Remote compression deformity of the T8 vertebral body appears unchanged with mild retropulsion again noted. Additionally, there are remote compression deformities of the L1, L2 and L3 vertebral bodies. Moderate intervertebral disc space narrowing at C6-C7. Upper thoracic levels are suboptimally visualized secondary to positioning. Multilevel spondylitic spurring about the thoracic spine. Convex right curvature about the lumbar spine. IMPRESSION: 1. No acute fracture or subluxation. 2. Demineralized appearance of the bones with remote T8 and upper lumbar spine compression deformities redemonstrated. The above report was generated using voice recognition software. It may contain grammatical, syntax or spelling errors. Electronically signed by: Sincere Chen M.D. 12/26/2017 2:14 PM Dictated Date/Time: 12/26/2017 2:10 PM
== END | disposition home or self-care (01) ==
LOC: C.RAD 13:42
PROVIDERS: ATTEND Internal Medicine Rheumatology
DX: M54.6 Pain in thoracic spine (principal); M81.0 Age-related osteoporosis without current pathological fracture

== ENCOUNTER 2018-01-04 06:59 | Emergency (ER) | payer BC ==
[~2018-01-04] VITALS: Ht 160 cm; Wt 61.4 kg
[~2018-01-04 06:59] MED LIST changes: -ALPR-411 PO; -ALPR0.5T PO; -ATOR-22 PO; -CALC200S6; -CYM/30 PO; -FOLI1TAB8 PO; -LDDP5 TOP; -METH2.5T PO; -METO100T44 PO; -PANT40TA PO; -TURM1CAP4 PO; -[UNRECOGNIZED DRUG - CODE] PO
[2018-01-04 07:08] VITALS: Ht 160 cm; Wt 61.4 kg
[2018-01-04] MEDS ORDERED: SODIUM CHLORIDE 0.9% 1000ML 1,000 ML IV STA (07:10)
[2018-01-04] MEDS ORDERED: ACETAMINOPHEN 325 MG TAB PO STA (07:14)
[2018-01-04 07:35] VITALS: O2SAT 96
--- NOTE | 2018-01-04 07:46 | DIAGNOSTIC IMAGING REPORT ---
CHEST ONE VIEW PORTABLE CLINICAL HISTORY: Weakness. Altered mental status. COMPARISON STUDY: Chest radiograph December 22, 2017. FINDINGS: Note is made of median sternotomy wires, prosthetic aortic valve and right shoulder arthroplasty. Cardiomegaly is unchanged. Mild bibasilar opacities favor atelectasis. There is no consolidation to suggest pneumonia. There is pulmonary vascular congestion. IMPRESSION: Pulmonary vascular congestion. Electronically signed by: Flavio Minaya M.D. 01/04/2018 7:44 AM Dictated Date/Time: 01/04/2018 7:42 AM
--- NOTE | 2018-01-04 08:02 | DIAGNOSTIC IMAGING REPORT ---
CT OF THE HEAD WITHOUT CONTRAST CLINICAL HISTORY: Altered mental status. Fall. COMPARISON STUDY: Head CT December 22, 2017 and MRI of the brain November 07, 2017. CT DOSE: 767.83 mGy.cm TECHNIQUE: Helical axial images of the head were obtained without IV contrast. Automated exposure control was utilized for the study. A dose lowering technique was utilized adhering to the principles of ALARA. FINDINGS: No acute intracranial hemorrhage, midline shift or mass effect is present. An old right BARREL INSPECTOR TIGHT distribution infarct is noted. This is unchanged. Ventricular system is stable with associated dilatation of the occipital horn of the right lateral ventricle. Basilar cisterns are patent. There are no extra-axial collections. White matter hypodensity suggests small vessel disease. There are no findings to suggest acute dural sinus thrombosis or acute territorial infarct. There is no calvarial fracture. IMPRESSION: 1. No acute intracranial findings. 2. 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 3. No calvarial fracture. Electronically signed by: Flavio Minaya M.D. 01/04/2018 8:00 AM Dictated Date/Time: 01/04/2018 7:57 AM
--- NOTE | 2018-01-04 08:33 | DIAGNOSTIC IMAGING REPORT ---
R FOOT MIN 3 VIEWS ROUTINE CLINICAL HISTORY: Right foot pain. COMPARISON: None FINDINGS: Note is made of extensive vascular calcification, osteopenia and evidence for right second toe amputation at the level of the metatarsophalangeal joint. Severe osteoarthritis is noted within multiple articulations, including the right first metatarsophalangeal joint and talonavicular articulation with pes planus deformity. There is also severe osteoarthritis within the subtalar joint. Flattening of the talus is noted. Findings are chronic. No acute fractures evident. There is no radiographic evidence for osteomyelitis. Severe degenerative changes within the right first metatarsophalangeal joint are noted. There is chronic deformity of the distal right tibia. IMPRESSION: 1. No acute fracture. 2. Severe osteoarthritis within multiple articulations of the right foot and ankle, as described above. 3. Right second toe amputation. 4. Extensive vascular calcification. Electronically signed by: Flavio Minaya M.D. 01/04/2018 8:32 AM Dictated Date/Time: 01/04/2018 8:29 AM
[2018-01-04] MEDS ORDERED: TURM1CAP4 PO (08:35)
[2018-01-04] MEDS ORDERED: CALC200S6 (08:35)
[2018-01-04 08:42] LABS: HEMATOCRIT 38.2 % (37-47); HEMOGLOBIN 11.9 g/dL (12.0-16.0); MEAN CELL VOLUME 101.9 fL (80-100); MEAN CORPUSCULAR HEMOGLOBIN 31.7 pg (25-34); MEAN CORPUSCULAR HGB CONC 31.2 g/dl (32-36); RED CELL DISTRIBUTION WIDTH CV 16.7 % (11.5-14.5); RED CELL DISTRIBUTION WIDTH SD 61.7 fL (36.4-46.3); WHITE BLOOD COUNT 5.31 K/uL (4.8-10.8)
[2018-01-04 08:50] LABS: PTT PATIENT 23.2 SECONDS (21.0-31.0)
[2018-01-04 09:08] LABS: ALBUMIN 3.4 gm/dl (3.4-5.0); ALKALINE PHOSPHATASE 52 U/L (45-117); ALT/SGPT 30 U/L (12-78); AST/SGOT 28 U/L (15-37); BLOOD UREA NITROGEN 13 mg/dl (7-18); CALCIUM 9.3 mg/dl (8.5-10.1); CARBON DIOXIDE 31 mmol/L (21-32); CKMB < 1.0 ng/ml (0.5-3.6); GLUCOSE 105 mg/dl (70-99); LIPASE 88 U/L (73-393); POTASSIUM 3.7 mmol/L (3.5-5.1); SODIUM 140 mmol/L (136-145)
[2018-01-04 09:14] LABS: MEAN PLATELET VOLUME 9.2 fL (7.4-10.4); PLATELET COUNT 92 K/uL (130-400)
[2018-01-04 09:15] LABS: BASO % 0.2 %; BASO ABS # 0.01 K/uL (0-0.2); EOS % 1.5 %; EOS ABS # 0.08 K/uL (0-0.5); IG# 0.22 K/uL (0.00-0.02); LYMPH % 19.4 %; LYMPH ABS # 1.03 K/uL (1.2-3.4); MONO % 9.2 %; MONO ABS # 0.49 K/uL (0.11-0.59); NEUT % 65.6 %; NEUT ABS # 3.48 K/uL (1.4-6.5)
[2018-01-04 11:45] VITALS: BP 168/86; PULSE 76; O2SAT 97
--- NOTE | 2018-01-04 12:27 | EMERGENCY ROOM VISIT NOTE ---
History First contact with patient: 07:01 Chief Complaint: FALL Stated Complaint: DIZZINESS/NAUSEA History of Present Illness The patient is a 77 year old female who presents to the Emergency Room with complaints of generalized weakness. The patient got up this morning and was walking to the bathroom with her walker. She then could not make it through the bathroom door. She called for her who helped her. Following this she was not able to walk on her own. The reports that she is too weak to walk. The patient also reports that she is to weak to support her own weight. The patient denies any other focal weakness. She does report a headache. She is on Eliquis for atrial fibrillation. The patient's symptoms started this morning. She denies any recent illness or fevers. She has not had any complaints of shortness of breath. She does use oxygen 2 L nasal cannula through the night. She denies chest pains, abdominal pains, back pains or trouble with bowel or bladder. Nothing has helped her symptoms. Review of Systems As above otherwise negative for 10 systems Past Medical/Surgical History Medical Problems: (1) Ambulatory dysfunction (2) Atrial fibrillation (3) Basal cell carcinoma (4) Chest pain (5) Complicated UTI (urinary tract infection) (6) Compression fracture (7) Congestive heart failure (8) Coronary artery disease (9) Dyspnea (10) GERD (gastroesophageal reflux disease) (11) Headache (12) Headache (13) Hip fracture due to osteoporosis (14) History of CVA (cerebrovascular accident) (15) History of hysterectomy (16) Hypercholesterolemia (17) Hypertension (18) Metabolic encephalopathy (19) Murmur, cardiac (20) On prednisone therapy (21) Osteoarthritis (22) Osteoporosis, unspecified (23) Peripheral vision loss (24) Rheumatoid arthritis (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 Surgical Problems: (1) History of bilateral hip arthroplasty (2) History of bilateral knee arthroplasty (3) History of heart valve replacement (4) History of shoulder surgery (5) Status post Mohs surgery for basal cell carcinoma Family History FH: breast cancer FHx: rheumatoid arthritis Heart disease Social History Smoking Status: Never Smoker Drug Use: none Marital Status: Housing Status: lives with significant other Occupation Status: retired Current/Historical Medications Scheduled Apixaban (Eliquis), 5 MG PO BID Atorvastatin (Lipitor), 20 MG PO NOON Calcium Carbonate-Vitamin D (Calcium + D3 600-200 mg-Unit), 1 TAB PO BID Duloxetine Hcl (Cymbalta), 30 MG PO QAM Ergocalciferol (Vitamin D), 2,000 UNITS PO BID Folic Acid (Folvite), 1 MG PO NOON Home O2 Therapy (Oxygen), 2 LITERS NA HS Lidocaine (Lidocaine), 1 DOSE TOP UD Methotrexate (Methotrexate), 10 MG PO WK Metoprolol Succ (Toprol Xl) (Toprol-Xl ), 100 MG PO QAM Metoprolol Succinate (Metoprolol Succinate ER), 25 MG PO QAM Morphine Sulfate Ir (Morphine Sulfate Ir), 15 MG PO TID Pantoprazole (Protonix), 40 MG PO NOON Pramipexole Dihydrochloride (Mirapex), 0.125 MG PO HS Prednisone (Prednisone), 4 MG PO HS Prednisone (Prednisone), 5 MG PO NOON Quetiapine Fumarate (Seroquel), 50 MG PO HS Senna (Senokot), 8.6 MG PO QPM Turmeric (Curcuma Longa) (Turmeric), 500 MG PO DAILY Scheduled PRN Acetaminophen (Tylenol), 500 MG PO Q4H PRN for Pain or Fever Alprazolam (Xanax), 0.5 MG PO Q6H PRN for Anxiety Miscellaneous Medications Calcitonin (Leland) (Calcitonin Leland) Physical Exam Vital Signs Date Time Temp Pulse Resp B/P (MAP) Pulse Ox O2 Delivery O2 Flow Rate FiO2 01/04/18 13:47 89 18 141/77 95 Nasal Cannula 2.0 01/04/18 13:17 93 01/04/18 11:51 82 18 132/70 96 Nasal Cannula 2.0 01/04/18 11:45 76 97 01/04/18 11:07 89 01/04/18 10:32 70 18 167/88 95 Nasal Cannula 2.0 01/04/18 08:47 70 18 160/81 97 Nasal Cannula 2.0 01/04/18 07:35 96 Nasal Cannula 2.0 01/04/18 07:13 73 01/04/18 07:08 36.8 74 16 160/92 90 Room Air Physical Exam CONSTITUTIONAL/VITAL SIGNS: Reviewed / noted above. GENERAL: Non-toxic in appearance. INTEGUMENTARY: Warm, dry, and [place]. HEAD: Normocephalic. EYES: without scleral icterus or trauma. ENT/OROPHARYNX: clear and moist. LYMPHADENOPATHY/NECK: Is supple without lymphadenopathy or meningismus. RESPIRATORY: Lungs clear and equal. CARDIOVASCULAR: Regular rate and rhythm. GI/ABDOMEN: Soft and nontender. No organomegaly or pulsatile mass. No rebound or guarding. Normal bowel sounds. EXTREMITIES: Warm and well perfused. The patient does have a couple of skin tears on the upper extremities. These are very minor. BACK: No CVA tenderness. NEUROLOGICAL: Intact without focal deficits. PSYCHIATRIC: normal affect. MUSCULOSKELETAL: Normally developed with good muscle tone. TRIAGE NURSING DOCUMENTATION REVIEWED. Medical Decision & Procedures ER Provider Diagnostic Interpretation: CHEST ONE VIEW PORTABLE CLINICAL HISTORY: Weakness. Altered mental status. COMPARISON STUDY: Chest radiograph December 22, 2017. FINDINGS: Note is made of median sternotomy wires, prosthetic aortic valve and right shoulder arthroplasty. Cardiomegaly is unchanged. Mild bibasilar opacities favor atelectasis. There is no consolidation to suggest pneumonia. There is pulmonary vascular congestion. IMPRESSION: Pulmonary vascular congestion. CT OF THE HEAD WITHOUT CONTRAST CLINICAL HISTORY: Altered mental status. Fall. COMPARISON STUDY: Head CT December 22, 2017 and MRI of the brain November 07, 2017. CT DOSE: 767.83 mGy.cm TECHNIQUE: Helical axial images of the head were obtained without IV contrast. Automated exposure control was utilized for the study. A dose lowering technique was utilized adhering to the principles of ALARA. FINDINGS: No acute intracranial hemorrhage, midline shift or mass effect is present. An old right INFORMATICS PHYSICIAN distribution infarct is noted. This is unchanged. Ventricular system is stable with associated dilatation of the occipital horn of the right lateral ventricle. Basilar cisterns are patent. There are no extra-axial collections. White matter hypodensity suggests small vessel disease. There are no findings to suggest acute dural sinus thrombosis or acute territorial infarct. There is no calvarial fracture. IMPRESSION: 1. No acute intracranial findings. 2. Old right INFORMATICS PHYSICIAN distribution infarct. Left foot x-ray: IMPRESSION: 1. No acute fracture. 2. Severe osteoarthritis within multiple articulations of the right foot and ankle, as described above. 3. Right second toe amputation. 4. Extensive vascular calcification. Laboratory Results 01/04/18 08:32 Red Blood Count 3.75, Mean Corpuscular Volume 101.9, Mean Corpuscular Hemoglobin 31.7, Mean Corpuscular Hemoglobin Concent 31.2, Mean Platelet Volume 9.2, Neutrophils (%) (Auto) 65.6, Lymphocytes (%) (Auto) 19.4, Monocytes (%) ( Auto) 9.2, Eosinophils (%) (Auto) 1.5, Basophils (%) (Auto) 0.2, Neutrophils # ( Auto) 3.48, Lymphocytes # (Auto) 1.03, Monocytes # (Auto) 0.49, Eosinophils # ( Auto) 0.08, Basophils # (Auto) 0.01 01/04/18 08:32 Test 01/04/18 08:32 01/04/18 09:28 White Blood Count 5.31 K/uL (4.8-10.8) Red Blood Count 3.75 M/uL (4.2-5.4) Hemoglobin 11.9 g/dL (12.0-16.0) Hematocrit 38.2 % (37-47) Mean Corpuscular Volume 101.9 fL (80-100) Mean Corpuscular Hemoglobin 31.7 pg (25-34) Mean Corpuscular Hemoglobin Concent 31.2 g/dl (32-36) Platelet Count 92 K/uL (130-400) Mean Platelet Volume 9.2 fL (7.4-10.4) Neutrophils (%) (Auto) 65.6 % Lymphocytes (%) (Auto) 19.4 % Monocytes (%) (Auto) 9.2 % Eosinophils (%) (Auto) 1.5 % Basophils (%) (Auto) 0.2 % Neutrophils # (Auto) 3.48 K/uL (1.4-6.5) Lymphocytes # (Auto) 1.03 K/uL (1.2-3.4) Monocytes # (Auto) 0.49 K/uL (0.11-0.59) Eosinophils # (Auto) 0.08 K/uL (0-0.5) Basophils # (Auto) 0.01 K/uL (0-0.2) RDW Standard Deviation 61.7 fL (36.4-46.3) RDW Coefficient of Variation 16.7 % (11.5-14.5) Immature Granulocyte % (Auto) 4.1 % Immature Granulocyte # (Auto) 0.22 K/uL (0.00-0.02) Platelet Estimate DECREASED Prothrombin Time 10.7 SECONDS (9.0-12.0) Prothromb Time International Ratio 1.0 (0.9-1.1) Activated Partial Thromboplast Time 23.2 SECONDS (21.0-31.0) Partial Thromboplastin Ratio 0.9 Anion Gap 6.0 mmol/L (3-11) Est Creatinine Clear Calc Drug Dose 47.9 ml/min Estimated GFR () 81.8 Estimated GFR (Non- 70.6 BUN/Creatinine Ratio 15.7 (10-20) Calcium Level 9.3 mg/dl (8.5-10.1) Magnesium Level 2.0 mg/dl (1.8-2.4) Total Bilirubin 0.8 mg/dl (0.2-1) Direct Bilirubin 0.3 mg/dl (0-0.2) Aspartate Amino Transf (AST/SGOT) 28 U/L (15-37) Alanine Aminotransferase (ALT/SGPT) 30 U/L (12-78) Alkaline Phosphatase 52 U/L (45-117) Total Creatine Kinase 17 U/L (26-192) Creatine Kinase MB < 1.0 ng/ml (0.5-3.6) Creatine Kinase MB Ratio (0-3.0) Troponin I < 0.015 ng/ml (0-0.045) Total Protein 7.0 gm/dl (6.4-8.2) Albumin 3.4 gm/dl (3.4-5.0) Lipase 88 U/L (73-393) Thyroid Stimulating Hormone (TSH) 1.930 uIu/ml (0.300-4.500) Urine Color YELLOW Urine Appearance CLEAR (CLEAR) Urine pH 6.5 (4.5-7.5) Urine Specific [place] 1.007 (1.000-1.030) Urine Protein NEG (NEG) Urine Glucose (UA) NEG (NEG) Urine Ketones NEG (NEG) Urine Occult Blood NEG (NEG) Urine Nitrite NEG (NEG) Urine Bilirubin NEG (NEG) Urine Urobilinogen NEG (NEG) Urine Leukocyte Esterase NEG (NEG) Urine WBC (Auto) 0 /hpf (0-5) Urine RBC (Auto) 0-4 /hpf (0-4) Urine Hyaline Casts (Auto) 0 /lpf (0-5) Urine Epithelial Cells (Auto) 0-5 /lpf (0-5) Urine Bacteria (Auto) NEG (NEG) Medications Administered Medications (Trade) Dose Ordered Sig/Wero Route Start Time Stop Time Status Last Admin Dose Admin Sodium Chloride 1,000 ml @ 250 mls/hr Q4H STAT IV 01/04/18 07:10 01/04/18 11:09 DC 01/04/18 07:10 250 MLS/HR Acetaminophen (Tylenol Tab) 650 mg NOW STAT PO 01/04/18 07:14 01/04/18 07:15 DC 01/04/18 07:30 650 MG ECG Per My Interpretation Indication: weakness Rate (beats per minute): 75 Rhythm: normal sinus Findings: LBBB, no ectopy ED Course The patient was evaluated. Tylenol p.o. and some IV fluids was given. Medical Decision Differential includes acute coronary syndrome, myocardial infarction, CVA, TIA, anemia, infection, pneumonia, UTI, pyelonephritis, poor nutrition, dehydration, electrolyte disturbance,hypoglycemia. This is a 77-year-old female who presents to the ED with a chief complaint of generalized weakness. She did not fall today but became stuck in the bathroom doorway and the helped her out. She did suffer a couple of small skin tears on her upper extremities related to this incident. She did not fall or strike her head. Other than the skin tears, the patient does not have any focal weakness. She is able to lift her legs off of the bed. She does report that she is unable to walk because of her weakness. The patient is on Eliquis related to atrial fibrillation. She does complain of a headache at this time. A 12-lead EKG reveals normal sinus rhythm with left bundle branch block that is chronic compared to EKG dated 12/22/2017. Chest x-ray, per the radiologist reveals congestive changes. Clinically the patient's lungs are clear and she does not have any clinical findings to suggest congestive heart failure. If anything, her clinical exam suggest some dehydration. She states that she is thirsty and her mouth is mildly dry. A CT scan of the brain did not show any acute process. CBC and complete metabolic panel were unremarkable. Troponin was negative, TSH was normal and a urine did not show infection. The patient had a physical therapy and occupational therapy evaluation here. She did not feel she can do 3 hours of physical therapy/day. The patient is unable to stand or walk on her own. She will need some sort of nursing care and/or rehabilitation. The patient was accepted at [facility]. Head Trauma GCS Score: 15 Medication Reconcilliation Current Medication List: was personally reviewed by me Blood Pressure Screening Patient's blood pressure: Elevated blood pressure Blood pressure disposition: Elevated BP felt to be situational, Referred to PCP Impression Primary Impression: Weakness Additional Impression: Unable to ambulate Departure Information Dispostion Home / Self-Care Prescriptions Alprazolam (XANAX) 0.5 Mg Tab 0.5 MG PO Q6H for 1 Day, #4 TAB Prov: Jhonathan Hendricks D.O. 01/04/18 Morphine Sulfate Ir (Morphine Sulfate Ir) 15 Mg Tab 15 MG PO TID Y for Pain for 1 Day, #3 TAB Prov: Jhonathan Hendricks D.O. 01/04/18 Referrals Cuong Chavez M.D. (PCP) Patient Instructions My [facility] Additional Instructions Go to [facility] for additional rehab and care. Problem Qualifiers
[2018-01-04] MEDS ORDERED: MORP15TA PO (13:58)
[2018-01-04] MEDS ORDERED: ALPR0.5T PO (13:58)
[2018-01-04 14:30] VITALS: BP 139/71; PULSE 82; O2SAT 96
[2018-01-07] MEDS ORDERED: ALPR-411 PO (06:37)
[2018-01-07] MEDS ORDERED: PANT40TA PO (09:10)
[2018-01-07] MEDS ORDERED: [UNRECOGNIZED DRUG - CODE] PO (10:00)
[2018-01-07] MEDS ORDERED: LDDP5 TOP (11:17)
[2018-01-07] MEDS ORDERED: METO100T44 PO (11:17)
[2018-01-07] MEDS ORDERED: METH2.5T PO (14:02)
[2018-01-07] MEDS ORDERED: FOLI1TAB8 PO (14:02)
== END 2018-01-04 14:30 | disposition other institution (70) ==
LOC: EDBD 06:59 → C.EDB 07:00
DX: R53.1 Weakness (principal); R26.89 Other abnormalities of gait and mobility; R51 Headache; I48.91 Unspecified atrial fibrillation; Z79.01 Long term (current) use of anticoagulants; E78.00 Pure hypercholesterolemia, unspecified; Z99.81 Dependence on supplemental oxygen; M06.9 Rheumatoid arthritis, unspecified; I11.0 Hypertensive heart disease with heart failure; K21.9 Gastro-esophageal reflux disease without esophagitis; Z87.39 Personal history of other diseases of the musculoskeletal system and connective tissue

== ENCOUNTER 2018-01-07 15:32 | Inpatient (IN) | payer BC, OTHER ==
[~2018-01-07] VITALS: Ht 157.5 cm; Wt 60.4 kg
[2018-01-07] VITALS (7 sets, daily range): BP systolic 118–169; BP diastolic 68–99; PULSE 69–80; TEMP 36.4–36.7; O2SAT 95–99; Ht 157.5 cm; Wt 60.4 kg
[~2018-01-07 15:32] MED LIST changes: -ADAL40KI INJ; +ALPR-411 PO; +CALC200S6; +FOLI1TAB8 PO; -KLN/5 PO; +LDDP5 TOP; +METH2.5T PO; +METO100T44 PO; +PANT40TA PO; -PRED20TA PO; +TURM1CAP4 PO; +[UNRECOGNIZED DRUG - CODE] PO
[2018-01-07] MEDS ORDERED: SODIUM CHLORIDE 0.9% 1000ML 1,000 ML IV SCH (16:13)
--- NOTE | 2018-01-07 16:26 | DIAGNOSTIC IMAGING REPORT ---
CHEST ONE VIEW PORTABLE CLINICAL HISTORY: Stroke mental status change COMPARISON STUDY: 01/04/2018 FINDINGS: Mild stable cardiomegaly. Chronic atelectasis left lung base. Lungs otherwise are clear. IMPRESSION: No acute process. Chronic and postoperative change. The above report was generated using voice recognition software. It may contain grammatical, syntax or spelling errors. Electronically signed by: Slava Strong M.D. 01/07/2018 4:25 PM Dictated Date/Time: 01/07/2018 4:24 PM
[2018-01-07] MEDS ORDERED: ATOR-22 PO (16:35)
[2018-01-07 17:11] LABS: HEMATOCRIT 36.4 % (37-47); HEMOGLOBIN 11.5 g/dL (12.0-16.0); MEAN CELL VOLUME 101.1 fL (80-100); MEAN CORPUSCULAR HEMOGLOBIN 31.9 pg (25-34); MEAN CORPUSCULAR HGB CONC 31.6 g/dl (32-36); RED CELL DISTRIBUTION WIDTH CV 16.2 % (11.5-14.5); RED CELL DISTRIBUTION WIDTH SD 59.9 fL (36.4-46.3); WHITE BLOOD COUNT 6.88 K/uL (4.8-10.8)
[2018-01-07 17:17] LABS: BASO % 0.3 %; BASO ABS # 0.02 K/uL (0-0.2); EOS % 1.3 %; EOS ABS # 0.09 K/uL (0-0.5); IG# 0.18 K/uL (0.00-0.02); LYMPH ABS # 1.58 K/uL (1.2-3.4); MEAN PLATELET VOLUME 9.4 fL (7.4-10.4); MONO % 8.7 %; NEUT % 64.1 %; NEUT ABS # 4.41 K/uL (1.4-6.5); PLATELET COUNT 93 K/uL (130-400)
[2018-01-07 17:23] LABS: PTT PATIENT 22.7 SECONDS (21.0-31.0)
[2018-01-07] MEDS ORDERED: CYM/30 PO (17:37)
[2018-01-07 17:41] LABS: BLOOD UREA NITROGEN 14 mg/dl (7-18); CALCIUM 8.6 mg/dl (8.5-10.1); CARBON DIOXIDE 29 mmol/L (21-32); CKMB < 1.0 ng/ml (0.5-3.6); CREATININE 0.71 mg/dl (0.60-1.20); GLUCOSE 139 mg/dl (70-99); SODIUM 138 mmol/L (136-145)
--- NOTE | 2018-01-07 17:46 | DIAGNOSTIC IMAGING REPORT ---
HEAD WITHOUT CONTRAST (CT) CT DOSE: 638.56 mGycm HISTORY: Mental status change Stroke TECHNIQUE: Multiaxial CT images of the head were performed without the use of intravenous contrast. A dose lowering technique was utilized adhering to the principles of ALARA. Comparison: 01/04/2018 Findings: The paranasal sinuses and mastoid air cells are clear. Old right occipital infarct unchanged. Age-related atrophy and chronic small vessel change. No acute intracranial hemorrhage. No midline shift. Impression: 1. No acute intracranial abnormality. 2. Old right occipital infarct. 3. Age-related chronic small vessel change and atrophy. The above report was generated using voice recognition software. It may contain grammatical, syntax or spelling errors. Electronically signed by: Slava Strong M.D. 01/07/2018 5:45 PM Dictated Date/Time: 01/07/2018 5:42 PM
--- NOTE | 2018-01-07 18:43 | History and Physical ---
History & Physical Date & Time of Service: Jan 07, 2018 at 18:14 Chief Complaint: Increased weakness, headache Primary Care Physician: Cuong Chavez M.D. History of Present Illness Source: patient, hospital records, other 77 y/o F Hx HTN, HPL, RA, CVA with R blindness, diastolic CHF, paroxysmal AF, chronic joint pain. The pt has visited the hospital 11/07 and 12/22 with a headache and acute weakness as she thought she was having a CVA. She was subjected to a full CVA workup at the time including an MRI. This demonstrated an old temporal-occipital infarct without any acute findings. She also had a temporal a. biopsy which ruled out GCA. She resides in a nursing facility presently and it is reported that she developed a headache, acute R weakness and stuttering speech. She states, however, that her symptoms have been present intermittently for [address] on arrival to the ER was again negative. The pt had also complained of CP earlier in the day which was R sided. On review of records, this too is a chronic complaint. Additionally, she wears oxygen at night and recently has has a marginal pulse-ox during the day. It was recommended that she wear oxygen continuously recently. She is a poor historian and tends to answer in the affirmative to any ROS-related questions. An SBP on arrival to the ER was approximately 180. Her oxygen saturation is at 87-89% without complaint os SOB. R sided weakness persists on admission. 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 7) Multiple compression fractures 8) Aortic stenosis - AVR Surgery: 1) BL TKR 2) AVR Family History FH: breast cancer FHx: rheumatoid arthritis Heart disease Social History Smoking Status: Never Smoker Drug Use: none Marital Status: Housing status: lives with significant other Occupational Status: retired Immunizations History of Influenza Vaccine: Yes Influenza Vaccine Date: Feb 23, 2013 History of Tetanus Vaccine?: Unknown Tetanus Immunization Date: Mar 23, 2009 History of Pneumococcal: Yes Pneumococcal Date: Feb 21, 2011 History of Hepatitis B Vaccine: Unknown Allergies Coded Allergies: Aspirin (Verified Allergy, Unknown, Hives, 01/04/18) Celecoxib (Verified Allergy, Unknown, UNKNOWN, 01/04/18) Pt does not know if she's allergic- doesn't remember being told this is an allergy Sulfa Antibiotics (Verified Allergy, Unknown, Unknown rxn, 01/04/18) Pt does not know if she is allergic to this- unsure how it is on her list Oxycodone (Verified Adverse Reaction, Mild, "GETS NERVOUS", 01/04/18) Home Medications Scheduled Apixaban (Eliquis), 5 MG PO BID Atorvastatin (Lipitor), 20 MG PO NOON Calcium Carbonate-Vitamin D (Calcium + D3 600-200 mg-Unit), 1 TAB PO BID Duloxetine Hcl (Cymbalta), 30 MG PO QAM Ergocalciferol (Vitamin D), 2,000 UNITS PO BID Folic Acid (Folvite), 1 MG PO NOON Home O2 Therapy (Oxygen), 2 LITERS NA HS Lidocaine (Lidocaine), 1 DOSE TOP UD Methotrexate (Methotrexate), 10 MG PO WK Metoprolol Succ (Toprol Xl) (Toprol-Xl ), 100 MG PO QAM Metoprolol Succinate (Metoprolol Succinate ER), 25 MG PO QAM Morphine Sulfate Ir (Morphine Sulfate Ir), 15 MG PO TID Pantoprazole (Protonix), 40 MG PO NOON Pramipexole Dihydrochloride (Mirapex), 0.125 MG PO HS Prednisone (Prednisone), 4 MG PO HS Prednisone (Prednisone), 5 MG PO NOON Quetiapine Fumarate (Seroquel), 50 MG PO HS Senna (Senokot), 8.6 MG PO QPM Turmeric (Curcuma Longa) (Turmeric), 500 MG PO DAILY Scheduled PRN Acetaminophen (Tylenol), 500 MG PO Q4H PRN for Pain or Fever Alprazolam (Xanax), 0.5 MG PO Q6H PRN for Anxiety Miscellaneous Medications Calcitonin ([place]) (Calcitonin [place]) Review of Systems Constitutional: No fever, No chills, No sweats Eyes: No worsening of vision ENT: No hearing loss, No unusual epistaxis, No nasal symptoms Respiratory: + problem reported (Low oxygen saturation), No cough, No sputum Cardiovascular: + chest pain (R sided) Abdomen: + nausea Musculoskeletal: + joint pain (chronic ) Genitourinary - Female: + problem reported (incontinence is chronic), No dysuria, No urinary frequency Neurologic: + weakness (as above) Psychiatric: + depression symptoms, + anxiety Endocrine: No fatigue Hematologic / Lymphatic: No abnormal bleeding/bruising Integumentary: No rash Allergic / Immunologic: No environmental allergies Physical Exam Vital Signs Date Time Temp Pulse Resp B/P (MAP) Pulse Ox O2 Delivery O2 Flow Rate FiO2 01/07/18 16:31 179/83 01/07/18 15:50 96 Nasal Cannula 2.0 01/07/18 15:45 36.7 59 18 152/74 86 Room Air General Appearance: WD/WN, no apparent distress, + thin, + pertinent finding ( Anxious, elderly female ) Head: normocephalic Eyes: normal inspection ENT: normal ENT inspection, pharynx normal Neck: supple, no JVD Respiratory/Chest: chest non-tender, lungs clear, normal breath sounds Cardiovascular: regular rate, rhythm, no JVD, + systolic murmur Abdomen/GI: normal bowel sounds, non tender, soft Back: normal inspection, no CVA tenderness Extremities/Musculoskelatal: + pertinent finding Neurologic/Psych: + pertinent finding (There is a clear R drift and LE weakness on the R - both extremities reveal diatal numbness - coordination is compromised by weakness ) Skin: normal color Diagnostics Laboratory Results Results Past 24 Hours Test 01/07/18 16:01 01/07/18 16:58 01/07/18 17:30 Range/Units Bedside Glucose 140 70-90 mg/dl White Blood Count 6.88 4.8-10.8 K/uL Red Blood Count 3.60 4.2-5.4 M/uL Hemoglobin 11.5 12.0-16.0 g/dL Hematocrit 36.4 37-47 % Mean Corpuscular Volume 101.1 80-100 fL Mean Corpuscular Hemoglobin 31.9 25-34 pg Mean Corpuscular Hemoglobin Concent 31.6 32-36 g/dl Platelet Count 93 130-400 K/uL Mean Platelet Volume 9.4 7.4-10.4 fL Neutrophils (%) (Auto) 64.1 % Lymphocytes (%) (Auto) 23.0 % Monocytes (%) (Auto) 8.7 % Eosinophils (%) (Auto) 1.3 % Basophils (%) (Auto) 0.3 % Neutrophils # (Auto) 4.41 1.4-6.5 K/uL Lymphocytes # (Auto) 1.58 1.2-3.4 K/uL Monocytes # (Auto) 0.60 0.11-0.59 K/uL Eosinophils # (Auto) 0.09 0-0.5 K/uL Basophils # (Auto) 0.02 0-0.2 K/uL RDW Standard Deviation 59.9 36.4-46.3 fL RDW Coefficient of Variation 16.2 11.5-14.5 % Immature Granulocyte % (Auto) 2.6 % Immature Granulocyte # (Auto) 0.18 0.00-0.02 K/uL Prothrombin Time 10.6 9.0-12.0 SECONDS Prothromb Time International Ratio 1.0 0.9-1.1 Activated Partial Thromboplast Time 22.7 21.0-31.0 SECONDS Partial Thromboplastin Ratio 0.9 Sodium Level 138 136-145 mmol/L Potassium Level 4.0 3.5-5.1 mmol/L Chloride Level 103 98-107 mmol/L Carbon Dioxide Level 29 21-32 mmol/L Anion Gap 6.0 3-11 mmol/L Blood Urea Nitrogen 14 7-18 mg/dl Creatinine 0.71 0.60-1.20 mg/dl Est Creatinine Clear Calc Drug Dose 54.0 ml/min Estimated GFR () 94.6 Estimated GFR (Non- 81.6 BUN/Creatinine Ratio 19.9 10-20 Random Glucose 139 70-99 mg/dl Calcium Level 8.6 8.5-10.1 mg/dl Magnesium Level 1.9 1.8-2.4 mg/dl Total Creatine Kinase 18 26-192 U/L Creatine Kinase MB < 1.0 0.5-3.6 ng/ml Creatine Kinase MB Ratio 0-3.0 Troponin I < 0.015 0-0.045 ng/ml Bedside Troponin I 0.030 0-0.045 ng/ml Impression Assessment and Plan 77 y/o F Hx HTN, HPL, RA, CVA with R blindness, diastolic CHF, paroxysmal AF, chronic joint pain. The pt has visited the hospital 11/07 and 12/22 with a headache and acute weakness as she thought she was having a CVA. She was subjected to a full CVA workup at the time including an MRI. This demonstrated an old temporal-occipital infarct without any acute findings. She also had a temporal a. biopsy which ruled out GCA. She resides in a nursing facility presently and it is reported that she developed a headache, acute R weakness and stuttering speech. She states, however, that her symptoms have been present intermittently for [address] on arrival to the ER was again negative. The pt had also complained of CP earlier in the day which was R sided. On review of records, this too is a chronic complaint. Additionally, she wears oxygen at night and recently has has a marginal pulse-ox during the day. It was recommended that she wear oxygen continuously recently. She is a poor historian and tends to answer in the affirmative to any ROS-related questions. An SBP on arrival to the ER was approximately 180. Her oxygen saturation is at 87-89% without complaint os SOB. R sided weakness persists on admission. 1) Acute R weakness - GUARDADO - no evidence of acute CVA on CT. Due to persistent R sided weakness and distal numbness on exam, we will obtain an MRI. We will consult neurology as complex migraine may now be in the differential. She takes Eliquis daily and is not a candidate for TPA regardless. We will add ASA to her regimen and continue a Statin pending evaluation by neurology. She is assigned to telemetry with a CVA protocol. It is noted that due to her persistent headaches, she was subjected to a temporal A biopsy 11/10. This proved negative for GCA. 2) Mild hypoxia - this may be a chronic issue related to her RA. We will provide 02 as needed and this can likely be addressed in the outpt setting unless there is worsening or complaints of dyspnea. She takes Eliquis daily so that a PE is not likely. 3) AF - sinus ana on admission - we are holding her B aj due to the above - cont Eliquis 4) HTN - elevated on admission further supporting acute ischemia - we will avoid antihypertensives at present. 5) RA - severe - she will continue prednisone - may need to reevaluate MTX use considering recent chronic hypoxia. Cont opiates for chronic pain. 6) CP is R sided - no evidence of ischemia 7) CHF - euvolemic on admission - restart B aj when possible. Full code - Eliquis prophylaxis Total time for this admit including review of labs, meds, imaging, records - discussion with pt and ER attending - 45 min Resuscitation Status VTE Prophylaxis Will order VTE Prophylaxis: Yes
[2018-01-07] MEDS ORDERED: PRD/1 PO (19:07)
[2018-01-07] MEDS ORDERED: QUET1TAB9 PO (19:07)
[2018-01-07] MEDS ORDERED: [UNRECOGNIZED DRUG - CODE] PR (19:07)
[2018-01-07] MEDS ORDERED: BISA10SU38 PR (19:07)
[2018-01-07] MEDS ORDERED: ACET-1346 PO (19:07)
[2018-01-07] MEDS ORDERED: MOML PO (19:07)
[2018-01-07] MEDS ORDERED: PRED-301 PO (19:07)
[2018-01-07] MEDS ORDERED: KLN/5 PO (19:07)
[2018-01-07] MEDS ORDERED: APIX1TAB PO (19:07)
[2018-01-07] MEDS ORDERED: MRP15 PO (19:07)
[2018-01-07] MEDS ORDERED: PRNJ PO (19:07)
[2018-01-07] MEDS ORDERED: NEOM-25 TOP (19:11)
[2018-01-07] MEDS ORDERED: ONDA4TAB65 PO (19:11)
--- NOTE | 2018-01-07 19:11 | EMERGENCY ROOM VISIT NOTE ---
History Report prepared by Ronda: Lyndsey Cuellar Under the Supervision of: Dr. Shahid Saenz M.D. First contact with patient: 16:01 Chief Complaint: CVA SYMPTOMS Stated Complaint: Increased weakness, headache Nursing Triage Summary: right sided weakness started 1130 today. was discharged 2 days ago with ?CVA. alert, oriented History of Present Illness The patient is a 77 year old female who presents to the Emergency Room with complaints of worsening weakness for the past 4 days. She is accompanied by her . She was seen here in the ED 4 days ago for weakness and difficulty walking. She produced a negative head CT and was discharged home. Her took her [facility], since she has had mobility issues, and she has been there for the past 3 days. She states since leaving the ED, "the weakness has gone into my right arm", and now she is having trouble moving her right leg and right arm. According to [facility], the patient had a right facial droop and increased weakness this morning. The patient complains of a headache that started this morning. She denies any recent falls or trauma. She admits to chest pain earlier today that felt like "pressure", but states it has resolved. She complains of shortness of breath and notes she wears 2L NC at night, that she has had to increase over the past day. Her states she has chronic low back pain, but cannot be operated on or undergo injections because she is on Xarelto. She denies any current back pain. 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 A total of 10 systems reviewed and were otherwise negative. Past Medical & Surgical Medical Problems: (1) Ambulatory dysfunction (2) Atrial fibrillation (3) Basal cell carcinoma (4) Chest pain (5) Complicated UTI (urinary tract infection) (6) Compression fracture (7) Congestive heart failure (8) Coronary artery disease (9) Dyspnea (10) GERD (gastroesophageal reflux disease) (11) Headache (12) Headache (13) Hip fracture due to osteoporosis (14) History of CVA (cerebrovascular accident) (15) History of hysterectomy (16) Hypercholesterolemia (17) Hypertension (18) Metabolic encephalopathy (19) Murmur, cardiac (20) On prednisone therapy (21) Osteoarthritis (22) Osteoporosis, unspecified (23) Peripheral vision loss (24) Rheumatoid arthritis (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 Surgical Problems: (1) History of bilateral hip arthroplasty (2) History of bilateral knee arthroplasty (3) History of heart valve replacement (4) History of shoulder surgery (5) Status post Mohs surgery for basal cell carcinoma Family History FH: breast cancer FHx: rheumatoid arthritis Heart disease Social History Smoking Status: Never Smoker Alcohol Use: none Drug Use: none Marital Status: Housing Status: lives with significant other Occupation Status: retired Current/Historical Medications Scheduled Apixaban (Eliquis), 2.5 MG PO BID Atorvastatin (Lipitor), 20 MG PO QPM Duloxetine Hcl (Cymbalta), 30 MG PO QAM Folic Acid (Folvite), 1 MG PO DAILY Lidocaine (Lidocaine), 1 PATCH TOP DAILY Methotrexate (Methotrexate), 10 MG PO WK Metoprolol Succ (Toprol Xl) (Toprol-Xl ), 100 MG PO QAM Morphine Sulfate (Morphine Sulfate), 15 MG PO Q8 Pantoprazole (Protonix), 40 MG PO DAILY Pramipexole Dihydrochloride (Mirapex), 0.125 MG PO HS Prednisone (Prednisone), 5 MG PO DAILY Prednisone (Prednisone), 1 MG PO BID Quetiapine Fumarate (Seroquel), 100 MG PO HS Scheduled PRN Acetaminophen (Acetaminophen), 650 MG PO Q6H PRN for Pain Alprazolam (Xanax), 0.5 MG PO Q24H PRN for Anxiety Bisacodyl (Dulcolax), 1 SUPP HI UD PRN for Constipation Clonazepam (Klonopin), 0.5 MG PO Q24H PRN for Anxiety Magnesium Hydroxide (Milk Of Magnesia), 30 ML PO UD PRN for Constipation Prune Juice (Prune Juice ), 1 DOSE PO UD PRN for Constipation Rectal Cleansers (Fleet Naturals Cleansing), 1 EA HI UD PRN for Constipation Allergies Coded Allergies: Aspirin (Verified Allergy, Unknown, Hives, 01/04/18) Celecoxib (Verified Allergy, Unknown, UNKNOWN, 01/04/18) Pt does not know if she's allergic- doesn't remember being told this is an allergy Sulfa Antibiotics (Verified Allergy, Unknown, Unknown rxn, 01/04/18) Pt does not know if she is allergic to this- unsure how it is on her list Oxycodone (Verified Adverse Reaction, Mild, "GETS NERVOUS", 01/04/18) Physical Exam Vital Signs Date Time Temp Pulse Resp B/P (MAP) Pulse Ox O2 Delivery O2 Flow Rate FiO2 01/07/18 19:00 192/101 01/07/18 18:00 178/88 97 Nasal Cannula 2.0 01/07/18 17:06 67 13 01/07/18 17:01 182/84 01/07/18 16:36 131 26 01/07/18 16:31 179/83 01/07/18 15:50 96 Nasal Cannula 2.0 01/07/18 15:45 36.7 59 18 152/74 86 Room Air Physical Exam Constitutional: Vital signs reviewed. Eyes: Pupils are equal round reactive to light. Conjunctiva are noninjected. ENT: Pharynx is clear without erythema or exudate. Mucous membranes are moist. Neck supple without meningeal signs. Respiratory: Clear to auscultation bilaterally. Breath sounds are equal bilaterally. Cardiovascular: Regular rate and rhythm. No rubs or gallops. GI: Soft, nondistended and nontender. Bowel sounds are present. Musculoskeletal: No peripheral edema. No lower extremity tenderness. Integumentary: No cyanosis. Bandaged skin tears to forearms and right leg, multiple bruises throughout arms and legs of varying ages. Neurological: The patient is awake and alert. Cranial nerves II-XII are intact. Right arm strength is 4/5, right leg is 3/5. Sensation is intact to light touch all extremities. Normal speech. Psychiatric: Normal affect. Medical Decision & Procedures ER Provider Diagnostic Interpretation: Radiology results as stated below per my review and the radiologist's interpretation: CHEST ONE VIEW PORTABLE CLINICAL HISTORY: Stroke mental status change COMPARISON STUDY: 01/04/2018 FINDINGS: Mild stable cardiomegaly. Chronic atelectasis left lung base. Lungs otherwise are clear. IMPRESSION: No acute process. Chronic and postoperative change. The above report was generated using voice recognition software. It may contain grammatical, syntax or spelling errors. Electronically signed by: Slava Strong M.D. 01/07/2018 4:25 PM HEAD WITHOUT CONTRAST (CT) CT DOSE: 638.56 mGycm HISTORY: Mental status change Stroke TECHNIQUE: Multiaxial CT images of the head were performed without the use of intravenous contrast. A dose lowering technique was utilized adhering to the principles of ALARA. Comparison: 01/04/2018 Findings: The paranasal sinuses and mastoid air cells are clear. Old right occipital infarct unchanged. Age-related atrophy and chronic small vessel change. No acute intracranial hemorrhage. No midline shift. Impression: 1. No acute intracranial abnormality. 2. Old right occipital infarct. 3. Age-related chronic small vessel change and atrophy. The above report was generated using voice recognition software. It may contain grammatical, syntax or spelling errors. Electronically signed by: Slava Strong M.D. 01/07/2018 5:45 PM Laboratory Results 01/07/18 16:58 Red Blood Count 3.60, Mean Corpuscular Volume 101.1, Mean Corpuscular Hemoglobin 31.9, Mean Corpuscular Hemoglobin Concent 31.6, Mean Platelet Volume 9.4, Neutrophils (%) (Auto) 64.1, Lymphocytes (%) (Auto) 23.0, Monocytes (%) ( Auto) 8.7, Eosinophils (%) (Auto) 1.3, Basophils (%) (Auto) 0.3, Neutrophils # ( Auto) 4.41, Lymphocytes # (Auto) 1.58, Monocytes # (Auto) 0.60, Eosinophils # ( Auto) 0.09, Basophils # (Auto) 0.02 01/07/18 16:58 Test 01/07/18 16:01 01/07/18 16:58 01/07/18 17:30 Bedside Glucose 140 mg/dl (70-90) White Blood Count 6.88 K/uL (4.8-10.8) Red Blood Count 3.60 M/uL (4.2-5.4) Hemoglobin 11.5 g/dL (12.0-16.0) Hematocrit 36.4 % (37-47) Mean Corpuscular Volume 101.1 fL (80-100) Mean Corpuscular Hemoglobin 31.9 pg (25-34) Mean Corpuscular Hemoglobin Concent 31.6 g/dl (32-36) Platelet Count 93 K/uL (130-400) Mean Platelet Volume 9.4 fL (7.4-10.4) Neutrophils (%) (Auto) 64.1 % Lymphocytes (%) (Auto) 23.0 % Monocytes (%) (Auto) 8.7 % Eosinophils (%) (Auto) 1.3 % Basophils (%) (Auto) 0.3 % Neutrophils # (Auto) 4.41 K/uL (1.4-6.5) Lymphocytes # (Auto) 1.58 K/uL (1.2-3.4) Monocytes # (Auto) 0.60 K/uL (0.11-0.59) Eosinophils # (Auto) 0.09 K/uL (0-0.5) Basophils # (Auto) 0.02 K/uL (0-0.2) RDW Standard Deviation 59.9 fL (36.4-46.3) RDW Coefficient of Variation 16.2 % (11.5-14.5) Immature Granulocyte % (Auto) 2.6 % Immature Granulocyte # (Auto) 0.18 K/uL (0.00-0.02) Prothrombin Time 10.6 SECONDS (9.0-12.0) Prothromb Time International Ratio 1.0 (0.9-1.1) Activated Partial Thromboplast Time 22.7 SECONDS (21.0-31.0) Partial Thromboplastin Ratio 0.9 Anion Gap 6.0 mmol/L (3-11) Est Creatinine Clear Calc Drug Dose 54.0 ml/min Estimated GFR () 94.6 Estimated GFR (Non- 81.6 BUN/Creatinine Ratio 19.9 (10-20) Calcium Level 8.6 mg/dl (8.5-10.1) Magnesium Level 1.9 mg/dl (1.8-2.4) Total Creatine Kinase 18 U/L (26-192) Creatine Kinase MB < 1.0 ng/ml (0.5-3.6) Creatine Kinase MB Ratio (0-3.0) Troponin I < 0.015 ng/ml (0-0.045) Bedside Troponin I 0.030 ng/ml (0-0.045) Laboratory results as reviewed by me. ECG Per My Interpretation Indication: other (neuro symptoms) Rate (beats per minute): 59 Rhythm: sinus bradycardia Findings: other (No concordant ST elevations) ED Course 1602: The patient was evaluated in room B11B. A complete history and physical exam was performed. 1613: NSS 1000 ml @ 50 mls/hr IV. 1754: I discussed the patients test results and my recommendation she remain in the hospital for further evaluation and management. She verbalized complete understanding and agreement. 1756: I discussed the patients case with Dr. Garcia, [facility]. The patient will be further evaluated. Medical Decision This is a 77-year-old female who presents with right-sided weakness and resolved chest discomfort. Differential diagnosis includes CVA, TIA, intracranial mass, intracranial hemorrhage, metabolic derangement, acute coronary syndrome. I did perform a limited focused review of portions of the patient's old chart on the electronic medical record. The patient was seen here on January 04 for generalized weakness and difficulty walking. She is on Eliquis for atrial fibrillation. I did evaluate the patient as noted above. Patient is presenting with strokelike symptoms. She is not an IV TPA candidate as she has had symptoms for several days and she is on Eliquis. IV access was established. 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 I did order and personally review the patient's 12-lead EKG and chest x-ray as described above. I did order and review the patient's blood work as noted in the electronic medical record. She has chronic anemia. Her troponin is negative. I did order a CT of the head. I did review the images myself as well as the radiology report as described above. There is no evidence of acute infarct. I did reassess the patient. She has persistent weakness to the right side of her body. She has no facial droop. I did discuss the test results with the patient and her . I did recommend hospitalization for further evaluation of her chest pain as well as her neurologic symptoms. She will likely have an MRI. I did discuss the case with the case management director and hospitalist. Medication Reconcilliation Current Medication List: was personally reviewed by me Blood Pressure Screening Patient's blood pressure: Elevated blood pressure Blood pressure disposition: Referred to PCP Consults Time Called: 1754 Consulting Physician: Dr. Garcia, [facility] Returned Call: 1756 I discussed the patients case with Dr. Garcia [facility]. The patient will be further evaluated. Impression Primary Impression: Right sided weakness Additional Impressions: Precordial chest pain Hypoxia Anemia Scribe Attestation The scribe's documentation has been prepared under my direct and personally reviewed by me in its entirety. I confirm that the note above accurately reflects all work, treatment, procedures, and medical decision making performed by me. Departure Information Dispostion Being Evaluated By Hospitalist Referrals Cuong Chavez M.D. (PCP) Patient Instructions My [facility] Problem Qualifiers Additional Impressions: Anemia Anemia type: unspecified type Qualified Codes: D64.9 - Anemia, unspecified
[2018-01-07] MEDS ORDERED: PHARMACIST DISCHARGE MED REC CONSULT PRN (19:30)
[2018-01-07] MEDS ORDERED: CLONAZEPAM 0.5 MG TAB PO PRN (19:30)
[2018-01-07] MEDS ORDERED: BISACODYL 10 MG SUPP PR PRN (19:30)
[2018-01-07] MEDS ORDERED: LORAZEPAM 2 MG/ML 1 ML VIAL ONE (19:38)
[2018-01-07] MEDS ORDERED: CLOPIDOGREL BISULFATE 75 MG TAB PO STA (19:38)
[2018-01-07] MEDS ORDERED: MAGNESIUM HYDROXIDE SUSP 30 ML UDC PO PRN (20:00)
[2018-01-07] MEDS ORDERED: POLYETHYLENE (MIRALAX) 17 GM PACK PO PRN (20:00)
[2018-01-07] MEDS ORDERED: ONDANSETRON INJ 2 MG/ML 2 ML VIAL IV PRN (20:00)
[2018-01-07] MEDS ORDERED: IV FLUIDS COMPLETED PRN (20:00)
[2018-01-07] MEDS ORDERED: ALUMINUM/MAGNESIUM/SIMETH (MAALOX MAX) 30 ML UDC PO PRN (20:00)
[2018-01-07] MEDS ORDERED: ACETAMINOPHEN 325 MG TAB PO PRN (20:00)
[2018-01-07] MEDS ORDERED: ATORVASTATIN 20 MG TAB PO SCH (21:00)
--- NOTE | 2018-01-07 21:14 | DIAGNOSTIC IMAGING REPORT ---
MRI OF THE BRAIN WITHOUT CONTRAST CLINICAL HISTORY: Stroke. COMPARISON STUDY: MRI of the brain November 07, [address] January 07, 2018. TECHNIQUE: Utilizing a 1.5 Twila magnet and dedicated coil, multiplanar, multiecho imaging of the brain was performed without IV contrast. FINDINGS: Note is made of a 2.1 x 1.1 cm focus of restricted diffusion within the periventricular left posterior frontal lobe. There is no mass effect or evidence of hemorrhagic conversion. No additional acute infarcts are identified. Old right [employer]ANQU[employer]GER territory infarct is noted with extensive encephalomalacia and associated dilatation of the occipital horn of the right lateral ventricle. The basilar cisterns are patent. There are nodular axial collections. A few old lacunar infarcts within the cerebellum are noted. White matter T2 hyperintense foci suggest small vessel disease. Calvarial signal is maintained. Orbits are grossly unremarkable. Exam is mildly compromised by motion artifact. IMPRESSION: 1. 2.1 x 1.1 cm acute infarct within the periventricular posterior left frontal lobe. No mass effect or hemorrhage. 2. Old right [employer] territory infarct. Electronically signed by: Flavio Minaya M.D. 01/07/2018 9:13 PM Dictated Date/Time: 01/07/2018 9:08 PM
[2018-01-07] MEDS: PRAMIPEXOLE DIHYDROCHLORIDE 0.25MG TAB PO SCH (22:52)
[2018-01-07] MEDS: QUETIAPINE FUMARATE 100 MG TAB PO SCH (22:52)
[2018-01-07] MEDS: MoRPHine SULFATE IR 15 MG TAB (IMMEDIATE RELEASE) PO SCH (22:52)
[2018-01-07] MEDS: APIXABAN 2.5 MG TAB PO SCH (22:52)
[2018-01-07] MEDS: ATORVASTATIN 40 MG TAB PO SCH (22:53)
[2018-01-08] VITALS (12 sets, daily range): BP systolic 102–146; BP diastolic 61–85; PULSE 70–84; TEMP 36.5–37.1; O2SAT 94–98
[2018-01-08] MEDS: MoRPHine SULFATE IR 15 MG TAB (IMMEDIATE RELEASE) PO SCH ×3 (05:46→22:16)
[2018-01-08 06:22] LABS: HEMOGLOBIN A1C 5.5 % (4.5-5.6)
[2018-01-08 06:50] LABS: HEMATOCRIT 34.3 % (37-47); HEMOGLOBIN 10.7 g/dL (12.0-16.0); MEAN CELL VOLUME 102.1 fL (80-100); MEAN CORPUSCULAR HEMOGLOBIN 31.8 pg (25-34); MEAN CORPUSCULAR HGB CONC 31.2 g/dl (32-36); RED CELL DISTRIBUTION WIDTH CV 16.3 % (11.5-14.5); RED CELL DISTRIBUTION WIDTH SD 60.6 fL (36.4-46.3); WHITE BLOOD COUNT 4.99 K/uL (4.8-10.8)
[2018-01-08 06:57] LABS: PLATELET COUNT 82 K/uL (130-400)
[2018-01-08 07:20] LABS: BASO % 0.4 %; BASO ABS # 0.02 K/uL (0-0.2); EOS % 2.8 %; EOS ABS # 0.14 K/uL (0-0.5); IG# 0.19 K/uL (0.00-0.02); LYMPH % 24.8 %; LYMPH ABS # 1.24 K/uL (1.2-3.4); MONO % 10.2 %; MONO ABS # 0.51 K/uL (0.11-0.59); NEUT ABS # 2.89 K/uL (1.4-6.5)
[2018-01-08 07:31] LABS: CALCIUM 8.3 mg/dl (8.5-10.1); CREATININE 0.65 mg/dl (0.60-1.20); POTASSIUM 3.6 mmol/L (3.5-5.1)
[2018-01-08] MEDS: DULOXETINE (CYMBALTA) 30 MG CAP PO SCH (08:08)
[2018-01-08] MEDS: PANTOprazole SOD 40 MG TAB PO SCH (08:08)
[2018-01-08] MEDS: APIXABAN 2.5 MG TAB PO SCH ×2 (08:09→20:27)
[2018-01-08] MEDS: CLOPIDOGREL BISULFATE 75 MG TAB PO SCH (08:09)
[2018-01-08] MEDS ORDERED: ATORVASTATIN 40 MG TAB PO SCH (09:00)
--- NOTE | 2018-01-08 09:35 | Neurology Consultation ---
Neurology Consultation Date of Consultation: Jan 08, 2018. Attending Physician: Kike Garcia M.D. Primary Care Physician: Cuong Chavez M.D. Reason for Consultation: Patient is a 77-year-old, was asked to see the request of Dr. Garcia, for neurologic consultation regarding stroke History of Present Illness Source: patient, caregiver, spouse, clinic records, hospital records This patient had a bioprosthetic aortic valve placed in January of 2010 at the [facility]. 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 She has been on anticoagulant with Eliquis and carries a diagnosis of paroxysmal atrial fibrillation, congestive heart failure, coronary artery disease, left bundle-branch. She has longstanding severe rheumatoid arthritis has been on methotrexate and prednisone for many years. 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 Because of her severe joint issues she ended up having bilateral total hip replacements and bilateral total knee replacements by Dr. Cueva. She has chronic joint pain and has been on chronic pain medication for this. She has had multiple spine compression fractures. Patient feels that she has some short-term memory issues that have been going on for 1-2 years. I first saw this patient November 08, 2017, 1 day after she was admitted for a severe bifrontal headache, some generalized weakness and perhaps some increased vision issues to the left compared to her baseline. She had been having intermittent headaches and dizziness intermittently for months to years although the headache had been increasing over the last month. The dizziness could be lightheadedness or vertigo. The headache tended to be a bifrontal steady achy pain with occasional occipital pain and neck pain. During that hospitalization, MRI of the brain showed no acute stroke but did show the old large right posterior cerebral artery stroke, old small vessel ischemic disease and some atrophy. MR angiography of the head did not show any significant vascular stenosis or vasculitis. She was discharged in improved condition and ended up getting bilateral temporal artery biopsies November 19. Pathology showed no evidence of giant cell or other arteritis. On December 22, she went to the emergency room because of dizziness and some headache. A CT scan of the head showed no acute findings. She was discharged home. On January 04 she came to the emergency room because of bilateral leg weakness. It was billed as generalized weakness, with further questioning she did not have weakness in her arms. She had pain in her legs and a CT scan of the head showed no change. She was sent to [facility]. In the evening of January 04 she felt that her right upper extremity was having pain particularly around the shoulder. The arm, however, was not weak. At the time she felt both legs were weak and head pain. Sometime on January 05 she felt the right arm was somewhat weak. This continued into January 06 and was somewhat worse. There was discussion about obtaining an MRI. By the morning of January 07, she had significant weakness of the right upper extremity as well as weakness in the right greater than left leg. The right arm and leg had considerable pain. The left upper extremity was largely asymptomatic the left leg had some pain in the thigh. They did not notice any speech problem or facial droop. She arrived to the emergency room January 07 at 1545 hours with a temperature 36.7, pulse 59 and regular, respiratory rate 18, blood pressure 152/74, and O2 saturation 86 percent. Normally she is on 2 liters nasal cannula oxygen because of chronic hypoxia. Neurologic examination revealed 4/5 strength in the right upper extremity and 3/ 5 strength in the right lower extremity. Chest x-ray showed no changes CT scan of the head showed no acute changes but showed the old right occipital stroke, ischemic changes and atrophy as before. Because of the time frame and the fact the patient is on Eliquis, she was not a tPA candidate, even though stroke was suspected. CBC showed anemia as before. INR was 1.0. Chem profile was largely unremarkable and glucose was 139. CK was 18. Fasting lipid profile showed a triglyceride of 165, cholesterol 130, LDL of 33. MRI of the brain showed a small acute stroke (2 x 1 cm) in the deep posterior frontal lobe periventricularly. There were no other acute events. There is a very large old right posterior cerebral artery territory stroke he the comma moderate diffuse old nonspecific scattered ischemic changes and mild generalized atrophy consistent with age. I reviewed these films and showed and reviewed the films with the patient and her spouse was at bedside. This morning, the patient has some low back pain as usual and pain in her right greater than left leg. The pain is proximal in the thighs. She has right upper extremity pain in the shoulder and upper arm but no left upper extremity pain. Right arm and leg are very weak. She does not have any vision issues of a new nature, speech problems, or mentation problems. She is a little tired however. Past Medical/Surgical History Medical Problems: (1) Anemia Status: Acute (2) Dizziness Status: Acute (3) Dizziness Status: Acute (4) Fracture of greater trochanter of right femur Status: Acute (5) Hypoxia Status: Acute (6) Hypoxia Status: Acute (7) Intermittent confusion Status: Acute (8) Intractable low back pain Status: Acute (9) Lumbar radiculopathy Status: Acute (10) Precordial chest pain Status: Acute (11) Precordial chest pain Status: Acute (12) Right sided weakness Status: Acute (13) Skin tear of right elbow without complication Status: Acute (14) Unable to ambulate Status: Acute (15) Weakness Status: Acute (16) Weakness Status: Acute History of large right posterior cerebral artery stroke in 2010, resulting in a left homonymous hemianopsia History of atrial fibrillation on Eliquis Coronary disease, congestive heart failure, left bundle-branch block Post bioprosthetic aortic valve replacement, in January of 2010, at the [facility] Hypertension, at least 20 years in duration Gastroesophageal reflux disease Severe rheumatoid arthritis for several decades with joint deformity, chronic pain, and has been on methotrexate and prednisone for years Chronic hypoxia on nasal cannula O2 History of intermittent headaches and dizziness (mostly lightheadedness but some vertigo). Temporal artery biopsy negative bilaterally in October of 2017. 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 Smoking Status: Never smoker Smokeless Tobacco Use: No Alcohol Use: none Drug Use: none Marital Status: Housing Status: lives with significant other Occupation Status: retired Allergies Coded Allergies: Aspirin (Verified Allergy, Unknown, Hives, 01/04/18) Celecoxib (Verified Allergy, Unknown, UNKNOWN, 01/04/18) Pt does not know if she's allergic- doesn't remember being told this is an allergy Sulfa Antibiotics (Verified Allergy, Unknown, Unknown rxn, 01/04/18) Pt does not know if she is allergic to this- unsure how it is on her list Oxycodone (Verified Adverse Reaction, Mild, "GETS NERVOUS", 01/04/18) Current Inpatient Medications Current Inpatient Medications Medications (Trade) Dose Ordered Sig/Wero Route Start Time Stop Time Status Last Admin Dose Admin Alprazolam (Xanax Tab) 0.5 mg Q24H PRN PO 01/07/18 19:30 02/06/18 19:29 Apixaban (Eliquis Tab) 2.5 mg BID PO 01/07/18 21:00 02/06/18 20:59 01/07/18 22:52 2.5 MG Bisacodyl (Dulcolax Supp) 10 mg QD PRN VT 01/07/18 19:30 02/06/18 19:29 Clonazepam (Klonopin Tab) 0.5 mg Q24H PRN PO 01/07/18 19:30 02/06/18 19:29 Duloxetine HCl (Cymbalta Cap) 30 mg QAM PO 01/08/18 09:00 02/07/18 08:59 Folic Acid (Folvite Tab) 1 mg DAILY PO 01/08/18 09:00 02/07/18 08:59 Morphine Sulfate (MoRPHine SULFATE IR TAB) 15 mg Q8 PO 01/07/18 22:00 01/21/18 21:59 01/08/18 05:46 15 MG Pantoprazole Sodium (Protonix Tab) 40 mg DAILY PO 01/08/18 09:00 02/07/18 08:59 Pramipexole Dihydrochloride (miraPEX TAB) 0.125 mg HS PO 01/07/18 21:00 02/06/18 20:59 01/07/18 22:52 0.125 MG Prednisone (PredniSONE TAB) 5 mg DAILY PO 01/08/18 09:00 02/07/18 08:59 Prednisone (PredniSONE TAB) 1 mg BID PO 01/07/18 21:00 02/06/18 20:59 01/07/18 22:52 1 MG Quetiapine Fumarate (seroQUEL TAB) 100 mg HS PO 01/07/18 21:00 02/06/18 20:59 01/07/18 22:52 100 MG Miscellaneous Information (Pharmacist Discharge Med Rec Consult) 1 ea UD PRN N/A 01/07/18 19:30 02/06/18 19:29 Clopidogrel Bisulfate (plAVix TAB) 75 mg QAM PO 01/08/18 09:00 02/07/18 08:59 Atorvastatin Calcium (Lipitor Tab) 40 mg HS PO 01/07/18 21:00 02/07/18 08:59 01/07/18 22:53 40 MG Acetaminophen (Tylenol Tab) 650 mg Q4H PRN PO 01/07/18 20:00 02/06/18 19:59 Al Hydrox/Mg Hydrox/Simethicone (Maalox Max Susp) 15 ml Q4H PRN PO 01/07/18 20:00 02/06/18 19:59 Magnesium Hydroxide (Milk Of Magnesia Susp) 30 ml Q12H PRN PO 01/07/18 20:00 02/06/18 19:59 Ondansetron HCl (Zofran Inj) 4 mg Q6H PRN IV 01/07/18 20:00 02/06/18 19:59 Polyethylene (Miralax Powder Packet) 17 gm DAILY PRN PO 01/07/18 20:00 02/06/18 19:59 Miscellaneous (Iv Fluids Completed) 1 ea PRN PRN N/A 01/07/18 20:00 01/07/19 19:59 Review of Systems Patient has significant chronic pain in the joints diffusely, chronic bruising and fatigue. She feels that her mood is variable and she can get depressed. Constitutional: + weakness, + fatigue Eyes: No worsening of vision, No diplopia ENT: No sore throat, No trouble swallowing Respiratory: No cough, No shortness of breath Cardiovascular: No chest pain, No palpitations Abdomen: No pain, No nausea Musculoskeletal: + joint pain, No muscle pain Genitourinary - Female: + urinary incontinence, No dysuria Neurologic: + memory loss, + weakness, + balance problems, No numbness/tingling , No vertigo Psychiatric: + depression symptoms, No anxiety Endocrine: + fatigue Hematologic / Lymphatic: + abnormal bleeding/bruising Integumentary: No rash Allergic / Immunologic: No hives Physical Exam Vital Signs (Past 24 Hrs): Date Time Temp Pulse Resp B/P (MAP) Pulse Ox O2 Delivery O2 Flow Rate FiO2 01/08/18 07:00 36.7 75 18 126/75 (92) 96 Nasal Cannula 3.0 01/08/18 04:00 97 Nasal Cannula 3.0 01/08/18 02:58 36.5 73 16 146/80 (102) 97 Nasal Cannula 3.0 01/08/18 02:15 71 16 114/65 (81) 98 Nasal Cannula 3.0 01/08/18 01:15 36.8 70 16 126/78 (94) 96 Nasal Cannula 3.0 01/08/18 00:15 36.8 74 16 130/78 (95) 95 Nasal Cannula 3.0 01/07/18 23:59 95 Nasal Cannula 3.0 01/07/18 23:15 74 16 120/68 (85) 99 Nasal Cannula 3.0 01/07/18 22:15 36.7 78 18 118/72 (87) 98 Nasal Cannula 3.0 01/07/18 22:00 36.7 80 18 136/80 (98) 98 Nasal Cannula 3.0 01/07/18 21:45 36.7 79 16 148/82 (104) 98 Nasal Cannula 3.0 01/07/18 21:30 36.4 69 18 169/99 (122) 99 Nasal Cannula 3.0 01/07/18 21:25 36.4 69 18 169/99 99 Nasal Cannula 3.0 01/07/18 20:52 65 20 162/98 95 Nasal Cannula 2.5 01/07/18 19:44 72 20 178/92 98 Nasal Cannula 2.5 01/07/18 19:00 192/101 01/07/18 18:00 178/88 97 Nasal Cannula 2.0 01/07/18 17:06 67 13 01/07/18 17:01 182/84 01/07/18 16:36 131 26 01/07/18 16:31 179/83 01/07/18 15:50 96 Nasal Cannula 2.0 01/07/18 15:45 36.7 59 18 152/74 86 Room Air Patient is right-handed. The patient is awake and alert. Speech is normal without aphasia or dysarthria. Mentation and thought processes are reasonable with orientation and fund of knowledge, but she does have some deficits. Mood and affect are normal and appropriate. Appearance and grooming are normal. Long and short-term memory are mildly impaired. The discs are sharp with positive venous pulsations. There are no exudates, hemorrhages, or blood vessel changes seen. Pupils are 3mm bilaterally and reactive to light. Extraocular eye muscles are intact without nystagmus. Visual acuity and visual dee seem grossly normal on the right side of her visual dee but she has a significant left homonymous hemianopsia present There are no deficits to sensation of the face bilaterally. Corneal reflexes are positive bilaterally. There is a mild right facial droop at the corner of the mouth and it moves less well than the left. Hearing seems intact grossly to voice and finger rub. Palate moves well without asymmetry. There is normal sternocleidomastoid and trapezius strength bilaterally. Tongue is midline with good strength bilaterally. Neck has a reasonable range of motion but is limited and she has discomfort. There are no cervical bruits. There are no cranial or ocular bruits. Heart has a click/murmur present Cervical spine is tender to palpation over the spinous processes and paraspinal muscles bilaterally without spasm. She has scoliosis. Gait is not testable as she is in considerable pain and has a near plegic right leg. Stance sitting up in bed is poor as well because of low back pain With outstretched arm, there is no drift on the left. There are no resting, postural, or action tremors. There is no ataxia with [id number] testing on the left. There is reasonable facility despite her severe joint deformity in the left hand but there is decreased facility and clumsiness/weakness in the right hand. There are no abnormal involuntary movements noted. Motor strength is close to 5/5 diffusely in the left upper extremity and left lower extremity both proximally and distally, although there is some giveaway weakness proximally secondary to pain. Tone is reasonable on the left arm and leg. Motor strength is the 4/5 distally in the right arm and hand and 3/5 proximally at the shoulder on the right. Motor strength is 1-2/5 diffusely in the right lower extremity both proximally and distally. Tone is decreased in the right arm and leg. There is diffuse joint deformity in the limbs distally with atrophy of distal muscles diffusely. Sensory examination is intact to pin and touch throughout all four limbs. Reflexes are 2/4 in the biceps, triceps, brachioradialis tendons bilaterally, 1/ 4 in the quadriceps tendons bilaterally, and 0/4 in the Achilles tendons bilaterally Toes are downgoing with plantar stimulation on the left and upgoing with plantar stimulation on the right Peripheral pulses are present and of normal quality distally in all four limbs. There is no peripheral edema noted. Laboratory Results Past 24 Hours: 01/08/18 06:37 Red Blood Count 3.36, Mean Corpuscular Volume 102.1, Mean Corpuscular Hemoglobin 31.8, Mean Corpuscular Hemoglobin Concent 31.2, Mean Platelet Volume 10.0, Neutrophils (%) (Auto) 58.0, Lymphocytes (%) (Auto) 24.8, Monocytes (%) ( Auto) 10.2, Eosinophils (%) (Auto) 2.8, Basophils (%) (Auto) 0.4, Neutrophils # (Auto) 2.89, Lymphocytes # (Auto) 1.24, Monocytes # (Auto) 0.51, Eosinophils # ( Auto) 0.14, Basophils # (Auto) 0.02 01/08/18 06:37 Test 01/07/18 16:01 01/07/18 16:58 01/07/18 17:30 01/08/18 06:37 Bedside Glucose 140 mg/dl (70-90) Prothrombin Time 10.6 SECONDS (9.0-12.0) Prothromb Time International Ratio 1.0 (0.9-1.1) Activated Partial Thromboplast Time 22.7 SECONDS (21.0-31.0) Partial Thromboplastin Ratio 0.9 Estimated Average Glucose 111 mg/dl Hemoglobin A1c 5.5 % (4.5-5.6) Magnesium Level 1.9 mg/dl (1.8-2.4) Total Creatine Kinase 18 U/L (26-192) Creatine Kinase MB < 1.0 ng/ml (0.5-3.6) Creatine Kinase MB Ratio (0-3.0) Troponin I < 0.015 ng/ml (0-0.045) Bedside Troponin I 0.030 ng/ml (0-0.045) White Blood Count 4.99 K/uL (4.8-10.8) Red Blood Count 3.36 M/uL (4.2-5.4) Hemoglobin 10.7 g/dL (12.0-16.0) Hematocrit 34.3 % (37-47) Mean Corpuscular Volume 102.1 fL (80-100) Mean Corpuscular Hemoglobin 31.8 pg (25-34) Mean Corpuscular Hemoglobin Concent 31.2 g/dl (32-36) Platelet Count 82 K/uL (130-400) Mean Platelet Volume 10.0 fL (7.4-10.4) Neutrophils (%) (Auto) 58.0 % Lymphocytes (%) (Auto) 24.8 % Monocytes (%) (Auto) 10.2 % Eosinophils (%) (Auto) 2.8 % Basophils (%) (Auto) 0.4 % Neutrophils # (Auto) 2.89 K/uL (1.4-6.5) Lymphocytes # (Auto) 1.24 K/uL (1.2-3.4) Monocytes # (Auto) 0.51 K/uL (0.11-0.59) Eosinophils # (Auto) 0.14 K/uL (0-0.5) Basophils # (Auto) 0.02 K/uL (0-0.2) RDW Standard Deviation 60.6 fL (36.4-46.3) RDW Coefficient of Variation 16.3 % (11.5-14.5) Immature Granulocyte % (Auto) 3.8 % Immature Granulocyte # (Auto) 0.19 K/uL (0.00-0.02) Ovalocytes 1+ Anion Gap 5.0 mmol/L (3-11) Est Creatinine Clear Calc Drug Dose 56.4 ml/min Estimated GFR () 98.6 Estimated GFR (Non- 85.0 BUN/Creatinine Ratio 26.3 (10-20) Calcium Level 8.3 mg/dl (8.5-10.1) Triglycerides Level 165 mg/dl (0-150) Cholesterol Level 130 mg/dl (0-200) HDL Cholesterol 64 mg/dl LDL Cholesterol, Calculated 33 mg/dl VLDL Cholesterol, Calculated 33 mg/dl Cholesterol/HDL Ratio 2.0 Date/Time Source Procedure Growth Status 01/07/18 22:55 Nasal MRSA DNA Surveillance Screen - Final Specimen Negative for MRSA by DNA Probe Complete Imaging MRI OF THE BRAIN WITHOUT CONTRAST CLINICAL HISTORY: Stroke. COMPARISON STUDY: MRI of the brain November 07, [address] January 07, 2018. TECHNIQUE: Utilizing a 1.5 Twila magnet and dedicated coil, multiplanar, multiecho imaging of the brain was performed without IV contrast. FINDINGS: Note is made of a 2.1 x 1.1 cm focus of restricted diffusion within the periventricular left posterior frontal lobe. There is no mass effect or evidence of hemorrhagic conversion. No additional acute infarcts are identified. Old right [employer]ATION [employer] TECH[employer]ICIAN territory infarct is noted with extensive encephalomalacia and associated dilatation of the occipital horn of the right lateral ventricle. The basilar cisterns are patent. There are nodular axial collections. A few old lacunar infarcts within the cerebellum are noted. White matter T2 hyperintense foci suggest small vessel disease. Calvarial signal is maintained. Orbits are grossly unremarkable. Exam is mildly compromised by motion artifact. IMPRESSION: 1. 2.1 x 1.1 cm acute infarct within the periventricular posterior left frontal lobe. No mass effect or hemorrhage. 2. Old right [employer] TECHNICIAN territory infarct. Electronically signed by: Flavio Minaya M.D. 01/07/2018 9:13 PM Impression 1. Acute stroke, likely small vessel ischemic in origin, deep left posterior frontal, periventricularly of a small size Clinically she has severe right upper and right lower extremity paresis, with near plegia in the leg. There is mild right facial droop. The time onset of this stroke is somewhat difficult to ascertain but given the history I suspect that it occurred either January 05 or . I believe this was small vessel thrombotic in origin and not embolic. Risk factors for this type of stroke would be predominantly her longstanding history of hypertension, as well as dyslipidemia and other chronic medical conditions Clinically she is stable but has significant deficits. She has no speech issues and her vision has not changed. 2. Old large right posterior artery territory stroke in 2010, resulting in a significant comma chronic left homonymous hemianopsia, which is stable 3. Mild to moderate old small vessel ischemic changes seen on MRI consistent with hypertensive small vessel ischemic disease. This is stable as well. 4. History of paroxysmal atrial fibrillation currently in normal sinus rhythm on Eliquis. 5. Longstanding rheumatoid arthritis with joint deformity on methotrexate and prednisone and in a chronic pain state. 6. Headaches. Patient has been getting chronic intermittent headaches which I believe are muscle tension and related to her cervical spine disease/pain. They are not migrainous. She had negative temporal artery biopsies for giant cell arteritis in October 2017. 7. Chronic intermittent dizziness which is mostly lightheadedness but occasionally vertiginous. 8. Memory loss: I suspect a mild to moderate underlying dementia, likely vascular. Plan 1. Eliquis will not adequately prevent small vessel ischemic disease. Since risk of stroke from small vessel ischemic disease is high, initiate Plavix 75 milligrams daily. The patient has an allergy to aspirin (hives). 2. Physical, occupational, and speech therapy consult. The patient could be a candidate to [facility] and consider consultation 3. Sling/prop up the right upper extremity as needed The weakness is significant and pulls at her right shoulder when the arm hangs, causing increased shoulder pain 4. The given her fasting LDL and cholesterol parameters, as well as her age and medical condition, I do not believe she has a high-dose statin candidate 5. I do not believe we need any other neurologic testing at this time I will follow Overall, I spent a total of 115 minutes with this case including records review , review of MRI films (with the patient and her spouse at bedside), direct evaluation the patient at bedside, and discussion of the case including differential diagnosis and treatment options with the patient and her at bedside, clinical staff at bedside, and Dr. Gee.
[2018-01-08] MEDS ORDERED: PHARMACIST DISCHARGE MED REC CONSULT PRN (12:15)
[2018-01-08] MEDS: ALPRAZOLAM 0.5 MG TAB PO PRN (18:27)
[2018-01-08] MEDS: QUETIAPINE FUMARATE 100 MG TAB PO SCH (20:25)
[2018-01-08] MEDS: PRAMIPEXOLE DIHYDROCHLORIDE 0.25MG TAB PO SCH (20:26)
[2018-01-08] MEDS: ATORVASTATIN 40 MG TAB PO SCH (20:28)
--- NOTE | 2018-01-08 22:17 | Progress Note ---
Subjective Date of Service: Jan 08, 2018. Subjective Pt evaluation today including: conversation w/ patient, conversation w/ family , physical exam 77 yo female reports constant frontal headache since lunch time (it is currently 4pm) Headache is moderate to severe. Patient has only tried opiate. She reports that this is accompanied by photophobia. Patient is asking for something for pain. Patient denies nausea vomiting. Patient also reports weakness on right side. Problem List Medical Problems: (1) Anemia Status: Acute (2) Dizziness Status: Acute (3) Dizziness Status: Acute (4) Fracture of greater trochanter of right femur Status: Acute (5) Hypoxia Status: Acute (6) Hypoxia Status: Acute (7) Intermittent confusion Status: Acute (8) Intractable low back pain Status: Acute (9) Lumbar radiculopathy Status: Acute (10) Precordial chest pain Status: Acute (11) Precordial chest pain Status: Acute (12) Right sided weakness Status: Acute (13) Skin tear of right elbow without complication Status: Acute (14) Unable to ambulate Status: Acute (15) Weakness Status: Acute (16) Weakness Status: Acute Review of Systems Constitutional: No fever, No chills, No sweats Eyes: No worsening of vision ENT: No hearing loss, No unusual epistaxis, No nasal symptoms Respiratory: + problem reported (Low oxygen saturation), No cough, No sputum Cardiovascular: + chest pain (R sided) Abdomen: + nausea Musculoskeletal: + joint pain (chronic ) Genitourinary - Female: + problem reported (incontinence is chronic), No dysuria, No urinary frequency Neurologic: + weakness (as above) Psychiatric: + depression symptoms, + anxiety Endocrine: No fatigue Hematologic / Lymphatic: No abnormal bleeding/bruising Integumentary: No rash Allergic / Immunologic: No environmental allergies Objective Vital Signs Date Time Temp Pulse Resp B/P (MAP) Pulse Ox O2 Delivery O2 Flow Rate FiO2 01/08/18 18:54 37.1 84 19 102/61 (75) 94 Nasal Cannula 2.0 01/08/18 15:58 96 Nasal Cannula 2.0 01/08/18 15:06 37.1 73 18 129/85 (100) 96 Nasal Cannula 2.0 01/08/18 12:50 36.9 74 16 113/76 (88) 96 Nasal Cannula 2.0 01/08/18 08:15 Nasal Cannula 2.0 01/08/18 07:00 36.7 75 18 126/75 (92) 96 Nasal Cannula 3.0 01/08/18 04:00 97 Nasal Cannula 3.0 01/08/18 02:58 36.5 73 16 146/80 (102) 97 Nasal Cannula 3.0 01/08/18 02:15 71 16 114/65 (81) 98 Nasal Cannula 3.0 01/08/18 01:15 36.8 70 16 126/78 (94) 96 Nasal Cannula 3.0 01/08/18 00:15 36.8 74 16 130/78 (95) 95 Nasal Cannula 3.0 01/07/18 23:59 95 Nasal Cannula 3.0 01/07/18 23:15 74 16 120/68 (85) 99 Nasal Cannula 3.0 Physical Exam Comments: General Appearance: WD/WN, no apparent distress, + thin, + pertinent finding ( Anxious, elderly female ) Head: normocephalic Eyes: normal inspection ENT: normal ENT inspection, pharynx normal Neck: supple, no JVD Respiratory/Chest: chest non-tender, lungs clear, normal breath sounds Cardiovascular: regular rate, rhythm, no JVD, + systolic murmur Abdomen/GI: normal bowel sounds, non tender, soft Back: normal inspection, no CVA tenderness Extremities/Musculoskelatal: + pertinent finding Neurologic/Psych: + pertinent finding (There is a clear R drift and LE weakness on the R - both extremities reveal distal numbness - coordination is compromised by weakness 3/5 muscle strength on R upper extremity, 2/5 on R lower extremity. Normal strength on left. ) Skin: normal color Laboratory Results Last 24 Hours Test 01/08/18 06:37 White Blood Count 4.99 K/uL Red Blood Count 3.36 M/uL Hemoglobin 10.7 g/dL Hematocrit 34.3 % Mean Corpuscular Volume 102.1 fL Mean Corpuscular Hemoglobin 31.8 pg Mean Corpuscular Hemoglobin Concent 31.2 g/dl Platelet Count 82 K/uL Mean Platelet Volume 10.0 fL Neutrophils (%) (Auto) 58.0 % Lymphocytes (%) (Auto) 24.8 % Monocytes (%) (Auto) 10.2 % Eosinophils (%) (Auto) 2.8 % Basophils (%) (Auto) 0.4 % Neutrophils # (Auto) 2.89 K/uL Lymphocytes # (Auto) 1.24 K/uL Monocytes # (Auto) 0.51 K/uL Eosinophils # (Auto) 0.14 K/uL Basophils # (Auto) 0.02 K/uL RDW Standard Deviation 60.6 fL RDW Coefficient of Variation 16.3 % Immature Granulocyte % (Auto) 3.8 % Immature Granulocyte # (Auto) 0.19 K/uL Ovalocytes 1+ Sodium Level 140 mmol/L Potassium Level 3.6 mmol/L Chloride Level 104 mmol/L Carbon Dioxide Level 31 mmol/L Anion Gap 5.0 mmol/L Blood Urea Nitrogen 17 mg/dl Creatinine 0.65 mg/dl Est Creatinine Clear Calc Drug Dose 56.4 ml/min Estimated GFR () 98.6 Estimated GFR (Non- 85.0 BUN/Creatinine Ratio 26.3 Random Glucose 118 mg/dl Calcium Level 8.3 mg/dl Triglycerides Level 165 mg/dl Cholesterol Level 130 mg/dl HDL Cholesterol 64 mg/dl LDL Cholesterol, Calculated 33 mg/dl VLDL Cholesterol, Calculated 33 mg/dl Cholesterol/HDL Ratio 2.0 Assessment and Plan 77 y/o F Hx HTN, HPL, RA, CVA with R blindness, diastolic CHF, paroxysmal AF, chronic joint pain. The pt has visited the hospital 11/07 and 12/22 with a headache and acute weakness as she thought she was having a CVA. She was subjected to a full CVA workup at the time including an MRI. This demonstrated an old temporal-occipital infarct without any acute findings. She also had a temporal a. biopsy which ruled out GCA. She resides in a nursing facility presently and it is reported that she developed a headache, acute R weakness and stuttering speech. She states, however, that her symptoms have been present intermittently for [address] on arrival to the ER was again negative. The pt had also complained of CP earlier in the day which was R sided. On review of records, this too is a chronic complaint. Additionally, she wears oxygen at night and recently has has a marginal pulse-ox during the day. It was recommended that she wear oxygen continuously recently. She is a poor historian and tends to answer in the affirmative to any ROS-related questions. An SBP on arrival to the ER was approximately 180. Her oxygen saturation is at 87-89% without complaint os SOB. R sided weakness persists on admission. Acute lacunar stroke, likely small vessel ischemic in origin, deep left posterior frontal, periventricularly of a small size Acute R weakness - GUARDADO - no evidence of acute CVA on CT. Stroke however confirmed on MRI She takes Eliquis daily and is not a candidate for TPA regardless. Continue a Statin pending evaluation by neurology. DUE TO ASPIRIN ALLERGY, WILL PLACE PATIENT ON PLAVIX. ADMIT patient. Awaiting discharge to rehab She is assigned to telemetry with a CVA protocol. It is noted that due to her persistent headaches, she was subjected to a temporal A biopsy 11/10. This proved negative for GCA. Migraine headache No improvement with her headache will monitor. will have patient on tylenol Chronic respiratory failure with hypoxia - this may be a chronic issue related to her RA. We will provide 02 as needed and this can likely be addressed in the outpt setting unless there is worsening or complaints of dyspnea. She takes Eliquis daily so that a PE is not likely. AF - sinus ana on admission - we are holding her B aj due to the above - cont Eliquis HTN - elevated on admission further supporting acute ischemia - we will avoid antihypertensives at present. Rheumatoid Arthritis - severe - she will continue prednisone - may need to reevaluate MTX use considering recent chronic hypoxia. Cont opiates for chronic pain. Chest Pain is R sided - no evidence of ischemia CHF - euvolemic on admission - restart B aj when possible. Full code - Eliquis prophylaxis
[2018-01-09 03:27] VITALS: BP 134/83; PULSE 75; TEMP 36.5; O2SAT 97
[2018-01-09] MEDS: MoRPHine SULFATE IR 15 MG TAB (IMMEDIATE RELEASE) PO SCH ×2 (05:49→14:19)
[2018-01-09 06:46] VITALS: BP 136/84; PULSE 70; TEMP 36.8; O2SAT 96
[2018-01-09 07:00] LABS: HEMATOCRIT 33.3 % (37-47); HEMOGLOBIN 10.4 g/dL (12.0-16.0); MEAN CELL VOLUME 101.8 fL (80-100); MEAN CORPUSCULAR HEMOGLOBIN 31.8 pg (25-34); MEAN CORPUSCULAR HGB CONC 31.2 g/dl (32-36); RED CELL DISTRIBUTION WIDTH CV 16.3 % (11.5-14.5); RED CELL DISTRIBUTION WIDTH SD 60.7 fL (36.4-46.3)
[2018-01-09 07:03] LABS: MEAN PLATELET VOLUME 9.5 fL (7.4-10.4); PLATELET COUNT 80 K/uL (130-400)
[2018-01-09 07:28] LABS: BASO % 0.4 %; BASO ABS # 0.02 K/uL (0-0.2); MONO % 9.4 %; MONO ABS # 0.47 K/uL (0.11-0.59); NEUT % 60.2 %; NEUT ABS # 3.01 K/uL (1.4-6.5)
[2018-01-09 07:33] LABS: CALCIUM 8.5 mg/dl (8.5-10.1); CREATININE 0.62 mg/dl (0.60-1.20); POTASSIUM 3.6 mmol/L (3.5-5.1)
[2018-01-09] MEDS: DULOXETINE (CYMBALTA) 30 MG CAP PO SCH (07:44)
[2018-01-09] MEDS: PANTOprazole SOD 40 MG TAB PO SCH (07:44)
[2018-01-09] MEDS: APIXABAN 2.5 MG TAB PO SCH (07:44)
[2018-01-09] MEDS: CLOPIDOGREL BISULFATE 75 MG TAB PO SCH (07:44)
--- NOTE | 2018-01-09 08:26 | Clinical Documentation Query ---
CLINICAL DOCUMENTATION QUERY 77 yo female admitted with acute CVA presented with O2 sat of 87% on room air. Patient wears chronic O2 at home at night and was recently recommended to wear continuously. In your clinical opinion is this patient being managed for: ( x) Chronic respiratory failure with hypoxia ( ) Not Agree ( ) Other explanation of clinical findings (No explanation is considered a No Response) ( ) Unable to determine ( ) Need to Discuss (Phone CDS or qliq) (No discussion is considered a No Response) The medical record reflects the following clinical findings, treatment, and risk factors. Clinical Indicators: As above Treatment: Home O2 Risk Factors: Age, old CVA, diastolic CHF, Afib Please clarify and document your clinical opinion in the progress notes and discharge summary. Terms such as "probable", "suspected", "likely", "questionable", "possible", or "still to be ruled out" are acceptable. IF IN AGREEMENT, YOU MUST DOCUMENT ABOVE DIAGNOSTIC STATEMENT IN DAILY PROGRESS NOTES AND DISCHARGE SUMMARY. This document is not part of the patient's record. Thank You, Naida Meza RN, MSN [phone]
[2018-01-09] MEDS ORDERED: NURSING VERBAL MED ORDER ONE (09:45)
[2018-01-09 10:43] VITALS: BP 130/77; PULSE 92; TEMP 37.2; O2SAT 94
[2018-01-09 15:08] VITALS: BP 131/83; PULSE 92; TEMP 37; O2SAT 93
[2018-01-09] MEDS ORDERED: PLV75 PO (15:28)
[2018-01-09] MEDS ORDERED: LPT40 PO (15:28)
[2018-01-09] MEDS ORDERED: KLN/5 PO (15:30)
[2018-01-09] MEDS ORDERED: MRP15 PO (15:30)
--- NOTE | 2018-01-09 15:34 | Discharge Instructions ---
Discharge Instructions Date of Service Jan 09, 2018. Admission Reason for Admission: Right Sided Weakness Discharge Discharge Diagnosis / Problem: Acute Stroke Discharge Goals Goal(s): Improve function, Increase independence Activity Recommendations Activity Limitations: as noted below Lifting Limitations: gradually increase as tolerated . Instructions / Follow-Up Instructions / Follow-Up Risk Factors for Stroke: You can reduce your chances of stroke by working with your medical provider to adopt a healthy lifestyle. Some specific ways to lower your chance of stroke are: * If you are a smoker, now is the time to stop smoking cigarettes * If you are diabetic, improve the control of your blood sugars * Avoid excessive amounts of alcohol * Control high blood pressure * Lose weight if you are overweight * Be sure to lead an active lifestyle * Eat a healthy diet low in salt, cholesterol and fat You should know about other risk factors for stroke that you are unable to control. These include: * Age 55 years or older * Male gender * Certain racial groups: , or / * Family History of Stroke, Mini stroke or Heart Attack * Sickle Cell Disease Follow Up: It is important for you to keep your follow up appointments with your medical provider. Followup with PCP in 1-2 weeks Followup with Neurology with in 3-4 weeks Current Hospital Diet Patient's current hospital diet: AHA Diet (Heart Healthy) Discharge Diet Recommended Diet: AHA Diet (Heart Healthy) Pending Studies Studies pending at discharge: no Laboratory Results Hemoglobin A1c Test 01/07/18 16:58 Range/Units Estimated Average Glucose 111 mg/dl Hemoglobin A1c 5.5 4.5-5.6 % Lipid Panel Test 01/08/18 06:37 Range/Units Triglycerides Level 165 H 0-150 mg/dl Cholesterol Level 130 0-200 mg/dl HDL Cholesterol 64 mg/dl Cholesterol/HDL Ratio 2.0 LDL Cholesterol, Calculated 33 mg/dl Medical Emergencies . Who to Call and When: Medical Emergencies: Call 911 immediately if you experience any of the following warning signs and symptoms of Stroke: * Sudden numbness or weakness of the face, arm or leg, especially on one side of the body * Sudden confusion, trouble speaking or understanding * Sudden trouble seeing in one or both eyes * Sudden trouble walking, dizziness, loss of balance or coordination * Sudden severe headache with no cause Do not delay calling 911 if you experience any warning signs or symptoms of a stroke. Delay in seeking medical attention may affect what treatments can be given to you. . Non-Emergent Contact Non-Emergency issues call your: Primary Care Provider Call Non-Emergent contact if: you have any medication questions . . "Provider Documentation" section prepared by Bud Gee. . Stroke Core Measures Reason no t-PA for Stroke: Treatment not indicated Reason no antithrom by day 2: Treatment provided - N/A Reason no antithrom at D/C: Treatment provided - N/A Reason no statin at D/C: Treatment provided - N/A Reason no anticoag w/a fib: Treatment provided - N/A
[2018-01-09 15:37] VITALS: BP 131/83; PULSE 92; TEMP 37; O2SAT 93
--- NOTE | 2018-01-09 15:43 | Discharge Summary ---
Discharge Summary Date of Service Jan 09, 2018. Discharge Summary Admission Date: Jan 08, 2018 at 12:11 Discharge Date: Jan 09, 2018 Discharge Disposition: Rehab Principal Diagnosis: Acute lacunar stroke, likely small vessel ischemic in origin, deep left pos Immunizations: Have You Had Influenza Vaccine: Yes Influenza Vaccine Date: Feb 23, 2013 History of Tetanus Vaccine?: Unknown Tetanus Immunization Date: Mar 23, 2009 History of Pneumococcal: Yes Pneumococcal Date: Feb 21, 2011 History of Hepatitis B Vaccine: Unknown Procedures: MRI OF THE BRAIN WITHOUT CONTRAST CLINICAL HISTORY: Stroke. COMPARISON STUDY: MRI of the brain November 07, [address] January 07, 2018. TECHNIQUE: Utilizing a 1.5 Twila magnet and dedicated coil, multiplanar, multiecho imaging of the brain was performed without IV contrast. FINDINGS: Note is made of a 2.1 x 1.1 cm focus of restricted diffusion within the periventricular left posterior frontal lobe. There is no mass effect or evidence of hemorrhagic conversion. No additional acute infarcts are identified. Old right [employer]MENT OPERATOR territory infarct is noted with extensive encephalomalacia and associated dilatation of the occipital horn of the right lateral ventricle. The basilar cisterns are patent. There are nodular axial collections. A few old lacunar infarcts within the cerebellum are noted. White matter T2 hyperintense foci suggest small vessel disease. Calvarial signal is maintained. Orbits are grossly unremarkable. Exam is mildly compromised by motion artifact. IMPRESSION: 1. 2.1 x 1.1 cm acute infarct within the periventricular posterior left frontal lobe. No mass effect or hemorrhage. 2. Old right [employer]E T[employer]ATMENT OPERATOR territory infarct. Consultations: Neurology Medication Reconciliation New Medications: Atorvastatin (Lipitor) 40 Mg Tab 40 MG PO HS for 30 Days, #30 TAB Clopidogrel Bisulfate (Clopidogrel) 75 Mg Tab 75 MG PO QAM for 30 Days, #30 TAB 1 Refill Continued Medications: Acetaminophen (Acetaminophen) 325 Mg Tab 650 MG PO Q6H PRN for Pain DO NOT EXCEED 3 GMS APAP/24 HOURS Apixaban (Eliquis) 2.5 Mg Tab 2.5 MG PO BID, TAB Bisacodyl (Dulcolax) 10 Mg Sup 1 SUPP NE UD PRN for Constipation, SUP NEEDED FOR NO BOWEL MOVEMENT FOR 3 DAYS IF MOM INEFFECTIVE Clonazepam (Klonopin) 0.5 Mg Tab 0.5 MG PO Q24H PRN for Anxiety for 10 Days, #10 TAB (This prescription has been renewed) Duloxetine Hcl (Cymbalta) 30 Mg Cap 30 MG PO QAM, CAP Folic Acid (Folvite) 1 Mg Tab 1 MG PO DAILY Lidocaine (Lidocaine) 1 Patch Tdsy 1 PATCH TOP DAILY REPLACE DAILY Magnesium Hydroxide (Milk Of Magnesia) 30 Ml Susp 30 ML PO UD PRN for Constipation, ML NEEDED FOR NO BOWEL MOVEMENT FOR 3 DAYS Methotrexate (Methotrexate) 2.5 Mg Tab 10 MG PO WK, TAB ADMINISTER THIS MEDICATION EVERY FRIDAY Metoprolol Succ (Toprol Xl) (Toprol-Xl ) 100 Mg Tabcr 100 MG PO QAM, TAB Morphine Sulfate (Morphine Sulfate) 15 Mg Tab 15 MG PO Q8 for 30 Days, #90 TAB (This prescription has been renewed) Hdufquso-Quuphqsgsq-Zgayyktyf (Triple Antibiotic) 1 Oin Oin 1 APPLN TOP BID for 14 Days APPLY TO RIGHT FOREARM EVERY DAY AND EVENING SHIFT FOR SKIN TEAR FOR 14 DAYS. COVER WITH DRY STERILE DRESSING. Ondansetron Hcl (Zofran) 4 Mg Tab 4 MG PO Q24H PRN for Nausea or Vomiting, TAB Pantoprazole (Protonix) 40 Mg Tab 40 MG PO DAILY, TAB Pramipexole Dihydrochloride (Mirapex) 0.125 Mg Tab 0.125 MG PO HS Prednisone (Prednisone) 5 Mg Tab 5 MG PO DAILY, TAB Prednisone (Prednisone) 1 Mg Tab 1 MG PO BID, TAB Prune Juice (Prune Juice ) Liqd 1 DOSE PO UD PRN for Constipation NEEDED FOR NO BOWEL MOVEMENT FOR 2 DAYS. OFFER PRUNE JUICE/STEWED PRUNES OR OTHER FIBER SUPPLEMENT. Quetiapine Fumarate (Seroquel) 100 Mg Tab 100 MG PO HS, TAB Rectal Cleansers (Fleet Naturals Cleansing) 1 Shira Shira 1 EA NE UD PRN for Constipation NEEDED ON DAY 4 FOR NO BOWEL MOVEMENT FROM DULCOLAX SUPPOSITORY Discontinued Medications: Alprazolam (Xanax) 0.5 Mg Tab 0.5 MG PO Q24H PRN for Anxiety, TAB Atorvastatin (Lipitor) 20 Mg Tab 20 MG PO QPM, TAB Discharge Exam Review of Systems Constitutional: No fever, No chills, No sweats Eyes: No worsening of vision ENT: No hearing loss, No unusual epistaxis, No nasal symptoms Respiratory: + problem reported (Low oxygen saturation), No cough, No sputum Cardiovascular: + chest pain (R sided) Abdomen: + nausea Musculoskeletal: + joint pain (chronic ) Genitourinary - Female: + problem reported (incontinence is chronic), No dysuria, No urinary frequency Neurologic: + weakness (as above) Psychiatric: + depression symptoms, + anxiety Endocrine: No fatigue Hematologic / Lymphatic: No abnormal bleeding/bruising Integumentary: No rash Allergic / Immunologic: No environmental allergies Physical Exam Comments: General Appearance: WD/WN, no apparent distress, + thin, + pertinent finding ( Anxious, elderly female ) Head: normocephalic Eyes: normal inspection ENT: normal ENT inspection, pharynx normal Neck: supple, no JVD Respiratory/Chest: chest non-tender, lungs clear, normal breath sounds Cardiovascular: regular rate, rhythm, no JVD, + systolic murmur Abdomen/GI: normal bowel sounds, non tender, soft Back: normal inspection, no CVA tenderness Extremities/Musculoskelatal: + pertinent finding Neurologic/Psych: + pertinent finding (There is a clear R drift and LE weakness on the R - both extremities reveal distal numbness - coordination is compromised by weakness 3/5 muscle strength on R upper extremity, 2/5 on R lower extremity. Normal strength on left. ) Skin: normal color Hospital Course 77 y/o F Hx HTN, HPL, RA, CVA with R blindness, diastolic CHF, paroxysmal AF, chronic joint pain. The pt has visited the hospital 11/07 and 12/22 with a headache and acute weakness as she thought she was having a CVA. She was subjected to a full CVA workup at the time including an MRI. This demonstrated an old temporal-occipital infarct without any acute findings. She also had a temporal a. biopsy which ruled out GCA. She resides in a nursing facility presently and it is reported that she developed a headache, acute R weakness and stuttering speech. She states, however, that her symptoms have been present intermittently for [address] on arrival to the ER was again negative. The pt had also complained of CP earlier in the day which was R sided. On review of records, this too is a chronic complaint. Additionally, she wears oxygen at night and recently has has a marginal pulse-ox during the day. It was recommended that she wear oxygen continuously recently. She is a poor historian and tends to answer in the affirmative to any ROS-related questions. An SBP on arrival to the ER was approximately 180. Her oxygen saturation is at 87-89% without complaint os SOB. R sided weakness persists on admission. Acute lacunar stroke, likely small vessel ischemic in origin, deep left posterior frontal, periventricularly of a small size Acute R weakness - GUARDADO - no evidence of acute CVA on CT. Stroke however confirmed on MRI She takes Eliquis daily and is not a candidate for TPA regardless. Continue a Statin DUE TO ASPIRIN ALLERGY, WILL PLACE PATIENT ON PLAVIX. discharge to rehab She was assigned to telemetry with a CVA protocol. It is noted that due to her persistent headaches, she was subjected to a temporal A biopsy 11/10. This proved negative for GCA. Migraine headache resolved yesterday. Chronic respiratory failure with hypoxia - this may be a chronic issue related to her RA. We provided 02 as needed and this can likely be addressed in the outpt setting unless there is worsening or complaints of dyspnea. She takes Eliquis daily so that a PE is not likely. AF - sinus ana on admission - we are holding her B aj due to the above - cont Eliquis HTN - elevated on admission further supporting acute ischemia - we will avoid antihypertensives at present. Rheumatoid Arthritis - severe - she will continue prednisone - may need to reevaluate MTX use considering recent chronic hypoxia. Cont opiates for chronic pain. Chest Pain is R sided - no evidence of ischemia CHF - euvolemic on admission - restart B aj when possible. Full code - Eliquis prophylaxis Total Time Spent: Greater than 30 minutes This includes examination of the patient, discharge planning, medication reconciliation, and communication with other providers. Discharge Instructions Please refer to the electronic Patient Visit Report (Discharge Instructions) for additional information. Follow-Up as noted on discharge instructions Additional Copies To Cuong Chavez M.D.
[2018-01-09] MEDS: ALPRAZOLAM 0.5 MG TAB PO PRN (18:09)
== END 2018-01-09 18:19 | DRG 65 ==
LOC: EDBD 15:32 → C.EDB 15:33 → C.2T 19:51 → ENRESERV 21:03 → OBSVTOIN 01-08 12:11
PROVIDERS: ADMIT Internal Medicine; ATTEND Internal Medicine Sports Medicine
DX: I63.8 Other cerebral infarction (principal); I50.32 Chronic diastolic (congestive) heart failure; J96.11 Chronic respiratory failure with hypoxia; I10 Essential (primary) hypertension; E78.5 Hyperlipidemia, unspecified; M06.9 Rheumatoid arthritis, unspecified; I69.998 Other sequelae following unspecified cerebrovascular disease; I48.91 Unspecified atrial fibrillation; G89.29 Other chronic pain; Z79.01 Long term (current) use of anticoagulants; Z88.6 Allergy status to analgesic agent; Z88.2 Allergy status to sulfonamides; Z88.5 Allergy status to narcotic agent; I25.10 Atherosclerotic heart disease of native coronary artery without angina pectoris; I44.7 Left bundle-branch block, unspecified; Z95.2 Presence of prosthetic heart valve; K21.9 Gastro-esophageal reflux disease without esophagitis; R09.02 Hypoxemia